=== PATIENT | female | born 1940 | race Caucasian/White ===

== ENCOUNTER 2021-07-28 20:50 | Emergency (ER) | payer MEDICARE, MEDICAID, SELFPAY ==
--- NOTE | ~2021-07-28 | CT_ITS ---
EXAMINATION: CT CERVICAL SPINE WITHOUT CONTRAST CLINICAL INFORMATION: Fall. Pain. COMPARISON: None TECHNIQUE: Contiguous axial CT images of the cervical spine were obtained without contrast. Sagittal and coronal reformats were provided and reviewed. This CT examination was performed using dose optimization techniques as appropriate, variously including the following: *Automated exposure control. *Adjustment of mA and/or kV according to patient size (this includes techniques or standardized protocols for targeted exams where dose is matched to indication/reason for exam; i.e. extremities or head). *Use of iterative reconstruction technique. DLP: 1308 mGy-cm FINDINGS: The cervical lordosis is maintained. No acute fracture or subluxation. 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 No loss of vertebral body height. Loss of intervertebral disc height with endplate osteophytes throughout the cervical spine, most prominent at C6-C7. Multilevel bilateral facet arthropathy. No concerning lytic or blastic osseous lesion. Unremarkable prevertebral soft tissues. The thyroid is grossly unremarkable. The visualized lung apices are clear. Mild multilevel bilateral neural foraminal stenosis. CT/CT cervical spine wo con IMPRESSION: 1. No acute fracture or subluxation. 2. 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 3. Multilevel degenerative disc disease and bilateral facet arthropathy with mild multilevel bilateral neural foraminal stenosis. Fleischner guidelines were followed.
--- NOTE | ~2021-07-28 | CT_ITS ---
EXAMINATION: CT HEAD WITHOUT CONTRAST CT MAXILLOFACIAL WITHOUT CONTRAST CLINICAL INFORMATION: Fall. Pain. Left maxillary contusion. COMPARISON: None TECHNIQUE: Contiguous axial imaging was performed from the skull base to vertex without intravenous administration of contrast. Contiguous axial CT images of the maxillofacial bones were obtained without contrast. Sagittal and coronal reformats were provided and reviewed. This CT examination was performed using dose optimization techniques as appropriate, variously including the following: *Automated exposure control. *Adjustment of mA and/or kV according to patient size (this includes techniques or standardized protocols for targeted exams where dose is matched to indication/reason for exam; i.e. extremities or head). *Use of iterative reconstruction technique. DLP: 1380 mGy-cm FINDINGS: HEAD: There is no evidence of acute intracranial hemorrhage or territorial infarction. No abnormal mass effect or midline shift is seen. Sgma-tx-bqene matter differentiation is well preserved. No extra-axial fluid collections are identified. The ventricles are normal in size. There is no abnormal attenuation within the brain parenchyma. Soft tissue swelling and subcutaneous hematoma overlying the left maxilla and measuring up to 3.6 cm. No adjacent fracture. The mastoid air cells and visualized portions of the paranasal sinuses are well aerated. MAXILLOFACIAL: Soft tissue swelling overlying the left maxilla with a lobulated subcutaneous collection measuring up to 3.6 cm in ML dimension, likely representing a soft tissue hematoma. There is no acute maxillofacial fracture. The pterygoid plates are intact. The zygomatic arches are intact. The lamina papyracea are intact. The orbital rims are intact. The paranasal sinuses are well-aerated. No air-fluid levels are seen. There is no significant deviation of the nasal septum. The ostiomeatal complexes are clear. The lamina papyracea are intact. The ethmoid roofs are symmetric. The carotid canals are normally covered by bone. There is no maxillary periapical disease. The mastoid air cells and visualized middle ear cavities are well-aerated. The orbits are normal. The TMJs are unremarkable. The imaged portions of the brain demonstrate no acute abnormality. CT/CT facial bones wo con IMPRESSION: HEAD: No acute intracranial hemorrhage or mass effect. MAXILLOFACIAL: Soft tissue hematoma overlying the left maxilla without acute fracture.
[2021-07-28 20:55] VITALS: BP 181/81; PULSE 90; RESP 17; TEMP 36.6; O2SAT 98; BMI 22.8
[2021-07-28 21:30] LABS: MANUAL DIFF FLAG NO
[2021-07-28 21:31] LABS: Basophils Percent Auto 0.6 % (0-2); Eosinophils Absolute Auto 0.1 X10*3/uL (0.0-0.4); Eosinophils Percent Auto 1.7 % (0-4); Hematocrit 35.1 % (37.0-47.0); Hemoglobin 11.3 g/dl (12.0-16.0); Imm Gran Abs Auto 0.04 X10*3/uL (0.00-0.03); Imm Gran Pct Auto 0.6 % (0.0-0.4); Lymphocytes Absolute Auto 1.3 X10*3/uL (1.2-4.9); Mean Corpuscular HGB Conc 32.2 g/dl (31.0-35.0); Mean Corpuscular Hemoglobin 28.9 pg (27.0-33.0); Mean Corpuscular Volume 89.8 fL (80.0-98.0); Mean Platelet Volume 8.3 fL (9.4-12.3); Monocytes Absolute Auto 0.7 X10*3/uL (0.1-1.2); Monocytes Percent Auto 10.6 % (2-11); Neutrophils Absolute Auto 4.8 x10*3/uL (2.0-8.3); Neutrophils Percent Auto 68.5 % (45-73); Platelet Count 259 X10*3/uL (160-400); Red Blood Count 3.91 X10*6/uL (4.20-5.50); Red Cell Distribution Width 13.9 % (11.0-16.0)
[2021-07-28 21:37] LABS: INTERNATIONAL NORM RATIO 1.1 (0.9-1.1); Prothrombin Time 12.5 SEC (9.9-13.0)
[2021-07-28 21:48] LABS: Alanine Aminotransferase 21 U/L (0-31); Albumin Level 3.6 g/dL (3.5-5.0); Alkaline Phosphatase 93 U/L (39-117); Anion Gap 16 (12-20); Aspartate Amino Transferase 18 U/L (5-31); Bilirubin Total 0.6 mg/dL (0.0-1.0); Blood Urea Nitrogen 18 mg/dL (9-16); Calcium 8.8 mg/dL (8.4-10.2); Carbon Dioxide 20 mmol/L (22-29); Chloride 105 mmol/L (96-108); Creatinine Clr Calc Pharmacy 53.2; Estimated Glomerular Filt Rate > 60; Glucose Random 256 mg/dL (60-115); Potassium 4.2 mmol/L (3.3-5.1); Sodium 137 mmol/L (135-145); Total Protein 6.5 g/dL (6.5-8.0)
--- NOTE | 2021-07-28 22:43 | ED.FALL ---
HPI - Fall General Chief Complaint: Fall Stated Complaint: fall Time Seen by Provider: 07/28/21 21:08 Source: patient Mode of arrival: EMS History of Present Illness HPI Narrative: This is an 81-year-old female who presents via EMS after a fall out of bed it day broken [facility]. Patient states she does not know how it happened but feels she may have mis- calculated the edge of the bed and denies any attempt to get out of bed at the time that she fell. She denies loss of consciousness, or the use of blood thinners. She states that she was in her usual state of health prior to this happening and denies any recent fever, chills, shortness of breath, chest pain/palpitations and denies any change in her appetite or bowel habits. Patient reports the only pain she is experiencing right now is to her left cheek. Related Data Allergies Allergy/AdvReac Type Severity Reaction Status Date / Time meperidine [From Demerol] Allergy Unknown Verified 07/28/21 21:01 Review of Systems Review of Systems: Pertinent positives and negatives as stated in HPI 10 point review of systems is otherwise negative. [facility] Past Medical History Source: nursing notes reviewed Medical History Alzheimer disease COVID-19 Depressed Diabetes High cholesterol HTN (hypertension) Vascular dementia Social History Social History Advance Directives: No Advance Directives Information Provided: No Physical Exam Vital Signs: Vital Signs: Last Vital Signs Temp 98 F 07/28/21 20:55 Pulse 90 07/28/21 20:55 Resp 17 07/28/21 20:55 BP 181/81 H 07/28/21 20:55 Pulse Ox 98 07/28/21 20:55 BMI result Body Mass Index 22.8 VITAL SIGNS: Reviewed. GENERAL: Elderly, frail, in no acute distress. HEAD: Normocephalic/contusion and swelling noted to left maxilla EYES: PERRLA, EOMI EARS: Ext canals without abnormality, TMs non-bulging and non-erythematous NOSE: Nares patent bilateral OROPHARYNX: no oral lesions noted, posterior pharynx clear NECK: C-collar in place, nose midline cervical spine tenderness on palpation, no adenopathy LUNGS: Normal breath sounds. No adventitious sounds or accessory muscle use. SpO2<98>; CHEST WALL: No deformity, pain on palpation, crepitus CARDIOVASCULAR: Regular rate and rhythm without noted murmurs ABDOMEN: Soft, non-tender, non-distended with bowel sounds. PELVIS: Stable, nontender MUSCULOSKELETAL: No tenderness, deformities, or effusions noted on gross inspection. EXTREMITIES: No cyanosis, clubbing or edema, full range of motion at shoulders/elbow/wrist/hip/knee/ankle SKIN: Inspection of the skin reveals no rashes NEUROLOGIC: Alert and oriented x 4. Strength and sensation to light touch were grossly intact x 4. Course Course Course Narrative: 81-year-old female with history and clinical presentation consistent with mechanical fall. Review of all investigations otherwise negative for acute findings other than hematoma over left cheek. All results discussed with patient bedside she is otherwise discharged home in stable condition MDM - Fall Lab Data Result diagrams: 07/28/21 21:27 07/28/21 21:27 Labs: Lab Results 07/28/21 07/28/21 07/28/21 Range/Units 21:27 21:27 21:27 WBC 7.0 (4.8-10.8) X10*3/uL RBC 3.91 L (4.20-5.50) X10*6/uL Hgb 11.3 L (12.0-16.0) g/dl Hct 35.1 L (37.0-47.0) % MCV 89.8 (80.0-98.0) fL MCH 28.9 (27.0-33.0) pg MCHC 32.2 (31.0-35.0) g/dl RDW 13.9 (11.0-16.0) % Plt Count 259 (160-400) X10*3/uL MPV 8.3 L (9.4-12.3) fL Immature Gran % (Auto) 0.6 H (0.0-0.4) % Neut % (Auto) 68.5 (45-73) % Lymph % (Auto) 18.0 L (20-40) % [place] % (Auto) 10.6 (2-11) % Eos % (Auto) 1.7 (0-4) % Baso % (Auto) 0.6 (0-2) % Lymph # (Auto) 1.3 (1.2-4.9) X10*3/uL [place] # (Auto) 0.7 (0.1-1.2) X10*3/uL Eos # (Auto) 0.1 (0.0-0.4) X10*3/uL Baso # (Auto) 0.0 (0.0-0.2) X10*3/uL Abs Immat Gran (auto) 0.04 H (0.00-0.03) X10*3/uL Absolute Neuts (auto) 4.8 (2.0-8.3) x10*3/uL Absolute Nucleated RBC 0.000 (0.0-0.012) X10*3/uL Nucleated RBC % (auto) 0.0 (0.0-0.2) /100WBC PT 12.5 (9.9-13.0) SEC INR 1.1 (0.9-1.1) Sodium 137 (135-145) mmol/L Potassium 4.2 (3.3-5.1) mmol/L Chloride 105 (96-108) mmol/L Carbon Dioxide 20 L (22-29) mmol/L Anion Gap 16 (12-20) BUN 18 H (9-16) mg/dL Creatinine 0.82 (0.5-1.4) mg/dL Estim Creat Clear Calc 53.2 Estimated GFR > 60 Random Glucose 256 H (60-115) mg/dL Calcium 8.8 (8.4-10.2) mg/dL Total Bilirubin 0.6 (0.0-1.0) mg/dL AST 18 (5-31) U/L ALT 21 (0-31) U/L Alkaline Phosphatase 93 (39-117) U/L Total Protein 6.5 (6.5-8.0) g/dL Albumin 3.6 (3.5-5.0) g/dL Discharge Plan Discharge Clinical Impression: Fall, Traumatic hematoma of cheek Patient Disposition: er [facility] Instructions: Fall Prevention for Older Adults (ED), Hematoma (ED), Facial Contusion (ED) Additional Instructions: 1. Resume all home medications as prescribed. 2. Recommend [id number] Tylenol/ibuprofen as needed for pain control. Consider applying ice to unexposed skin for 5-10 minutes, 3 to 4 times a day. 3. Please follow-up with your primary care provider in the morning for re-evaluation. Return to the ER for worsening symptoms.
[2021-07-28] MEDS: Ketorolac Tromethamine 15 MG/ML VIAL IM (22:47)
[2021-07-28] MEDS: Acetaminophen 325 MG TABLET 975 MG PO (23:35)
[2021-07-29] VITALS: BP 108/48; PULSE 67; RESP 16; TEMP 36.6; O2SAT 97
[2021-07-29 02:00] VITALS: BP 112/50; PULSE 59; RESP 16; TEMP 36.5; O2SAT 97
--- NOTE | 2021-07-29 04:27 | PC.NURSE ---
Pt was reposition at for comfort. report called to facility. Discharge instruction given to EMS at transport.
== END 2021-07-29 04:30 | disposition skilled nursing facility (03) ==
PROVIDERS: Emergency Provider Student in an Organized Health Care Education/Training Program
DX: S00.83XA Contusion of other part of head, initial encounter (principal); M54.2 Cervicalgia; I10 Essential (primary) hypertension; E11.9 Type 2 diabetes mellitus without complications; G30.9 Alzheimer's disease, unspecified; F02.80 Dementia in other diseases classified elsewhere, unspecified severity, without behavioral disturbance, psychotic disturbance, mood disturbance, and anxiety; W06.XXXA Fall from bed, initial encounter; Y93.9 Activity, unspecified; Y92.199 Unspecified place in other specified residential institution as the place of occurrence of the external cause; Y99.9 Unspecified external cause status
CPT/HCPCS: 36415; 70450; 70486; 72125; 80053; 85025; 85610; 96372; 99284; J1885

== ENCOUNTER 2021-10-11 14:15 | Emergency (ER) | payer MEDICARE, MEDICAID, SELFPAY ==
--- NOTE | ~2021-10-11 | XR_ITS ---
EXAMINATION: XR CHEST CLINICAL INFORMATION: Chest pain COMPARISON: None TECHNIQUE: Frontal portable view of the chest was obtained. 1544 hours FINDINGS: Lungs are clear. No pulmonary vascular congestion. There is no pleural effusion. The heart size is normal. The cardiac and mediastinal contours are normal. There are calcifications of the thoracic aorta. There are multilevel degenerative changes of dorsal spine. Status post right humeral head replacement. 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 XR/XR chest 1V IMPRESSION: No acute abnormality of chest.
--- NOTE | ~2021-10-11 | CT_ITS ---
EXAMINATION: CT ANGIOGRAM OF THE CHEST WITH AND WITHOUT CONTRAST (CT PULMONARY ANGIOGRAM FOR PE) CLINICAL INFORMATION: Reason for Exam r/o PE COMPARISON: None TECHNIQUE: Prior to contrast administration, noncontrast localization images were obtained. Subsequently, multidetector volumetric imaging was performed from the thoracic inlet to below the diaphragms following the administration of 75 mL Omnipaque 350 intravenous contrast. No contrast reaction reported Sagittal, coronal, and MIP oblique sagittal reformatted images were obtained on the CT workstation, uploaded to PACS, and reviewed. This CT examination was performed using dose optimization techniques as appropriate, variously including the following: *Automated exposure control *Adjustment of mA and/or kV according to patient size (this includes techniques or standardized protocols for targeted exams where dose is matched to indication/reason for exam; i.e. extremities or head) *Use of iterative reconstruction technique Total exam dose-length product 345 mGy-cm FINDINGS: QUALITY OF STUDY/CONTRAST BOLUS: Satisfactory. PULMONARY ARTERIES: Small filling defects within distal lingular segmental pulmonary arterial branches and possible nonocclusive small filling defect within the distal posterior segmental branch in the right upper lobe suspicious for small pulmonary emboli. No larger or more central pulmonary emboli. Normal caliber central pulmonary trunk. THORACIC AORTA: Normal caliber thoracic aorta. Mild vascular calcifications. LUNG: No airspace consolidation or suspicious appearing pulmonary nodule. Minimal dependent right basilar atelectasis. Mild linear scarring or subsegmental atelectasis in the right upper lobe. Central airways are clear. PLEURA: No pleural effusion or pneumothorax. MEDIASTINUM: Normal heart size. No pericardial effusion. No mediastinal or hilar lymphadenopathy. Prominent LAD coronary artery vascular calcifications. Coarse calcifications of the aortic valve. No evidence of RV strain/septal bowing. CHEST WALL/AXILLA: No axillary or internal mammary lymphadenopathy. OSSEOUS STRUCTURES: No acute or suspicious osseous abnormality. Moderate to multilevel degenerative disc disease most prominently in the lower thoracic spine. Status post right shoulder arthroplasty. UPPER ABDOMEN: Small hiatal hernia. Remainder of the visualized upper abdominal viscera are grossly unremarkable. No reflux of contrast into the hepatic veins to suggest elevated right heart pressures. CT/CT angio chest PE protocol IMPRESSION: 1. Couple small filling defects within distal lingular segmental pulmonary arterial branches and small nonocclusive filling defect in the distal posterior segmental branch of the right upper lobe, suspicious for small pulmonary emboli. No larger or more central pulmonary emboli. 2. No evidence of RV strain. This critical result was discussed with Dr. Madrid at 6:02 PM on 10/11/2021 and it was ascertained that the content and urgency of the report was understood at the time of direct communication. VTE: positive
--- NOTE | 2021-10-11 14:30 | ECG_ITS ---
Test Reason : CHST PAIN Blood Pressure : / mmHG Vent. Rate : 063 BPM Atrial Rate : 063 BPM P-R Int : 278 ms QRS Dur : 094 ms QT Int : 428 ms P-R-T Axes : 090 -62 032 degrees QTc Int : 437 ms Sinus rhythm with 1st degree A-V block Left axis deviation Possible Lateral infarct , age undetermined Abnormal ECG No previous ECGs available Referred By: Geovany Trevino Electronically Signed By:CHELO MAN MD
--- NOTE | 2021-10-11 14:32 | ED_ITS ---
HPI - Chest Pain General Chief Complaint: Dyspnea Stated Complaint: CHEST PAIN FOR 1 HOUR FROM SNF Time Seen by Provider: 10/11/21 14:26 Source: EMS Mode of arrival: EMS Limitations: other (dementia) History of Present Illness HPI narrative: 81 yo female with hx of dementia,presented to the ED via ambulace c/o chest pain since this AM,she lives in [place],She is disoriented to time,Pain is radiated to the back,denies SOB complaint: chest pain Onset (ago): hour(s) (6) Timing of current episode: constant Prior episodes: No Onset: during rest Pain location: substernal Pain radiation: back Severity: mild Quality: aching Relieving factors: nothing Exacerbating factors: nothing Risk Factors Coronary artery disease risk factors: diabetes Related Data Previous Rx's Medication Instructions Recorded apixaban 5 mg (74 tabs) tablets in 5 mg PO BID #74 ea 10/11/21 a dose pack (Eliquis DVT-PE Treat 30D Start) Allergies Allergy/AdvReac Type Severity Reaction Status Date / Time meperidine [From Demerol] Allergy Unknown Verified 07/28/21 21:01 Review of Systems Review of Systems: Yes all other systems are reviewed and are negative Constitutional: Constitutional: Reports no additional constitutional complaints Eyes: Eyes: Reports no additional eye complaints Cardiovascular: Cardiovascular: Reports no additional cardiovascular complaints Allergic/Immunologic: Allergic/Immunologic: Reports no additional allergic/immunologic complaints PMFSH Past Medical History Medical History Alzheimer disease COVID-19 Depressed Diabetes High cholesterol HTN (hypertension) Vascular dementia Social History Social History Patient Tobacco Use Status: Never used Tobacco Use of substances other than those prescribed or required for medical reasons: No Advance Directives: Yes Advance Directives on File: Yes Advance Directives Date on File: 07/30/21 Physical Exam Vital Signs: Vital Signs: Last Vital Signs Temp 98 F 10/11/21 14:44 Pulse 66 10/11/21 18:08 Resp 14 10/11/21 18:08 BP 152/54 H 10/11/21 18:08 Pulse Ox 99 10/11/21 18:08 O2 Del Method 10/11/21 18:08 BMI result Body Mass Index 26.3 Const: General: cooperative Nutritional Appearance: well nourished Orientation/consciousness: oriented to place and No oriented to time HEENT: Head: Yes normal to inspection Face and sinus: Yes normal facial exam Neck: Neck: Yes full ROM and Yes no lymphadenopathy Chest: Chest palpation & inspection: normal inspection of the chest Resp: Auscultation: clear to auscultation bilaterally Cardio: Jugular venous distension: no JVD Rate: regular rate Rhythm: regular rhythm GI: Inspection: Yes normal to inspection Palpation (GI): Soft to palpation, not firm and nontender : General: Yes no CVA tenderness Back/Spine/Pelvis: Back: no CVA tenderness Skin: General skin exam: elasticity normal Neuro: General: oriented to place and No oriented to time Course Reevaluation(s) Reevaluation #1: bed side cardiac US done GERALDO/Apycal/Subxiphoid view good wall motion/no pericardial effusion Time: 19:08 Reevaluation #2: page to Dr Terrance Pena attending at [facility] Reevaluation #3: Patient has a segmental pulmonary emboli however she is oxygenating very well, she is not tachypneic,, troponin is negative, I feel is safe to discharge her on Eliquis, I discussed the case with the covering primary care physician for Dr Pena , AMANDA Kothari he agrees with the plan without this point will discharge the patient to the nursing facility.Pt has low risk PESI score Additional Reevaluation(s): 10:30 PM still waiting for the ambulance to transport the pt to [place],no ambulance available I will let the incoming Physician Dr Cherry aware of the pt MDM - Chest Pain Lab Data Result diagrams: 10/11/21 14:58 10/11/21 14:58 Labs: Lab Results 10/11/21 10/11/21 10/11/21 Range/Units 14:58 14:58 14:58 WBC 9.1 (4.8-10.8) X10*3/uL RBC 4.12 L (4.20-5.50) X10*6/uL Hgb 12.2 (12.0-16.0) g/dl Hct 36.7 L (37.0-47.0) % MCV 89.1 (80.0-98.0) fL MCH 29.6 (27.0-33.0) pg MCHC 33.2 (31.0-35.0) g/dl RDW 13.3 (11.0-16.0) % Plt Count 266 (160-400) X10*3/uL MPV 9.0 L (9.4-12.3) fL Immature Gran % (Auto) 0.4 (0.0-0.4) % Neut % (Auto) 68.9 (45-73) % Lymph % (Auto) 19.6 L (20-40) % [place] % (Auto) 8.8 (2-11) % Eos % (Auto) 1.5 (0-4) % Baso % (Auto) 0.8 (0-2) % Lymph # (Auto) 1.8 (1.2-4.9) X10*3/uL [place] # (Auto) 0.8 (0.1-1.2) X10*3/uL Eos # (Auto) 0.1 (0.0-0.4) X10*3/uL Baso # (Auto) 0.1 (0.0-0.2) X10*3/uL Abs Immat Gran (auto) 0.04 H (0.00-0.03) X10*3/uL Absolute Neuts (auto) 6.2 (2.0-8.3) x10*3/uL Absolute Nucleated RBC 0.000 (0.0-0.012) X10*3/uL Nucleated RBC % (auto) 0.0 (0.0-0.2) /100WBC PT 12.1 (10.0-13.1) SEC INR 1.1 (0.9-1.1) D-Dimer High Sensitivty 383 NG/ML Sodium 136 (135-145) mmol/L Potassium 4.1 (3.3-5.1) mmol/L Chloride 103 (96-108) mmol/L Carbon Dioxide 21 L (22-29) mmol/L Anion Gap 16 (12-20) BUN 16 (9-16) mg/dL Creatinine 0.88 (0.5-1.4) mg/dL Estim Creat Clear Calc 45.2 Estimated GFR > 60 Random Glucose 181 H (60-115) mg/dL Calcium 9.0 (8.4-10.2) mg/dL Total Bilirubin 0.4 (0.0-1.0) mg/dL AST 16 (5-31) U/L ALT 15 (0-31) U/L Alkaline Phosphatase 80 (39-117) U/L Troponin I High Sens (<3.5-17.0) ng/L Total Protein 6.3 L (6.5-8.0) g/dL Albumin 3.9 (3.5-5.0) g/dL 10/11/21 10/11/21 Range/Units 14:58 17:10 WBC (4.8-10.8) X10*3/uL RBC (4.20-5.50) X10*6/uL Hgb (12.0-16.0) g/dl Hct (37.0-47.0) % MCV (80.0-98.0) fL MCH (27.0-33.0) pg MCHC (31.0-35.0) g/dl RDW (11.0-16.0) % Plt Count (160-400) X10*3/uL MPV (9.4-12.3) fL Immature Gran % (Auto) (0.0-0.4) % Neut % (Auto) (45-73) % Lymph % (Auto) (20-40) % [place] % (Auto) (2-11) % Eos % (Auto) (0-4) % Baso % (Auto) (0-2) % Lymph # (Auto) (1.2-4.9) X10*3/uL [place] # (Auto) (0.1-1.2) X10*3/uL Eos # (Auto) (0.0-0.4) X10*3/uL Baso # (Auto) (0.0-0.2) X10*3/uL Abs Immat Gran (auto) (0.00-0.03) X10*3/uL Absolute Neuts (auto) (2.0-8.3) x10*3/uL Absolute Nucleated RBC (0.0-0.012) X10*3/uL Nucleated RBC % (auto) (0.0-0.2) /100WBC PT (10.0-13.1) SEC INR (0.9-1.1) D-Dimer High Sensitivty NG/ML Sodium (135-145) mmol/L Potassium (3.3-5.1) mmol/L Chloride (96-108) mmol/L Carbon Dioxide (22-29) mmol/L Anion Gap (12-20) BUN (9-16) mg/dL Creatinine (0.5-1.4) mg/dL Estim Creat Clear Calc Estimated GFR Random Glucose (60-115) mg/dL Calcium (8.4-10.2) mg/dL Total Bilirubin (0.0-1.0) mg/dL AST (5-31) U/L ALT (0-31) U/L Alkaline Phosphatase (39-117) U/L Troponin I High Sens < 3.5 < 3.5 (<3.5-17.0) ng/L Total Protein (6.5-8.0) g/dL Albumin (3.5-5.0) g/dL Imaging Data CT scan - chest: Radiologist's impression: MEDIASTINUM: Normal heart size. No pericardial effusion. No mediastinal or hilar lymphadenopathy. Prominent LAD coronary artery vascular calcifications. Coarse calcifications of the aortic valve. No evidence of RV strain/septal bowing. CHEST WALL/AXILLA: No axillary or internal mammary lymphadenopathy. OSSEOUS STRUCTURES: No acute or suspicious osseous abnormality. Moderate to multilevel degenerative disc disease most prominently in the lower thoracic spine. Status post right shoulder arthroplasty. UPPER ABDOMEN: Small hiatal hernia. Remainder of the visualized upper abdominal viscera are grossly unremarkable.? No reflux of contrast into the hepatic veins to suggest elevated right heart pressures. CT/CT angio chest PE protocol IMPRESSION: 1.? Couple small filling defects within distal lingular segmental pulmonary arterial branches and small nonocclusive filling defect in the distal posterior segmental branch of the right upper lobe, suspicious for small pulmonary emboli. No larger or more central pulmonary emboli. 2.? No evidence of RV strain. ? This critical result was discussed with Dr. Madrid at 6:02 PM on 10/11/2021 and it was ascertained that the content and urgency of the report was understood at the time of direct communication. ? VTE: positive Dictated By: Thien Peña Signed By: <Electronically signed by Thien? Casey in OV> 10/11/21 1803 DD/ 1715 TD/TT:? Projection Printer: ECG Data ECG #1: Pacemaker model: NSR [address]-t changes Discharge Plan Discharge Clinical Impression: Pulmonary embolism without acute cor pulmonale Patient Disposition: Xfer SNF Instructions: Blood Thinners (ED) Additional Instructions: The CT scan was positive for pulmonary emboli however was only small vessel of the lungs , we going to start you on Eliquis you need to take a 10 mg twice a day for the 1st week then 5 mg twice a day Prescriptions: New Eliquis DVT-PE Treat 30D Start 5 mg (74 tabs) tablets,dose pack 5 mg PO BID Qty: 74 0RF
[2021-10-11 14:40] VITALS: BP 127/60; PULSE 65; O2SAT 100
[2021-10-11 14:44] VITALS: BP 142/65; PULSE 63; RESP 16; TEMP 36.6; O2SAT 100; BMI 26.3
[2021-10-11 15:10] VITALS: PULSE 64
[2021-10-11 15:11] LABS: MANUAL DIFF FLAG NO
[2021-10-11 15:13] LABS: Basophils Absolute Auto 0.1 X10*3/uL (0.0-0.2); Basophils Percent Auto 0.8 % (0-2); Eosinophils Absolute Auto 0.1 X10*3/uL (0.0-0.4); Eosinophils Percent Auto 1.5 % (0-4); Hematocrit 36.7 % (37.0-47.0); Hemoglobin 12.2 g/dl (12.0-16.0); Imm Gran Abs Auto 0.04 X10*3/uL (0.00-0.03); Imm Gran Pct Auto 0.4 % (0.0-0.4); Lymphocytes Absolute Auto 1.8 X10*3/uL (1.2-4.9); Lymphocytes Percent Auto 19.6 % (20-40); Mean Corpuscular HGB Conc 33.2 g/dl (31.0-35.0); Mean Corpuscular Hemoglobin 29.6 pg (27.0-33.0); Mean Corpuscular Volume 89.1 fL (80.0-98.0); Monocytes Absolute Auto 0.8 X10*3/uL (0.1-1.2); Monocytes Percent Auto 8.8 % (2-11); Neutrophils Absolute Auto 6.2 x10*3/uL (2.0-8.3); Neutrophils Percent Auto 68.9 % (45-73); Platelet Count 266 X10*3/uL (160-400); Red Blood Count 4.12 X10*6/uL (4.20-5.50); Red Cell Distribution Width 13.3 % (11.0-16.0); White Blood Count 9.1 X10*3/uL (4.8-10.8)
[2021-10-11 15:18] LABS: INTERNATIONAL NORM RATIO 1.1 (0.9-1.1); Prothrombin Time 12.1 SEC (10.0-13.1)
[2021-10-11 15:20] LABS: D Dimer High Sensitivity 383 NG/ML
[2021-10-11 15:34] LABS: Alanine Aminotransferase 15 U/L (0-31); Albumin Level 3.9 g/dL (3.5-5.0); Alkaline Phosphatase 80 U/L (39-117); Anion Gap 16 (12-20); Aspartate Amino Transferase 16 U/L (5-31); Bilirubin Total 0.4 mg/dL (0.0-1.0); Blood Urea Nitrogen 16 mg/dL (9-16); Carbon Dioxide 21 mmol/L (22-29); Chloride 103 mmol/L (96-108); Creatinine Clr Calc Pharmacy 45.2; Estimated Glomerular Filt Rate > 60; Glucose Random 181 mg/dL (60-115); Potassium 4.1 mmol/L (3.3-5.1); Sodium 136 mmol/L (135-145); Total Protein 6.3 g/dL (6.5-8.0)
[2021-10-11 15:40] LABS: Troponin-I High Sensitivity < 3.5 ng/L (<3.5-17.0)
[2021-10-11] MEDS: Acetaminophen 325 MG TABLET 650 MG PO (15:57)
--- NOTE | 2021-10-11 16:49 | PC.NURSE ---
IV tubing changed for CT scan, CT scan is aware.
[2021-10-11] MEDS: iohexoL 350 MG/ML 100 ML INFUS..BTL IV (17:09)
[2021-10-11 17:34] LABS: Troponin-I High Sensitivity < 3.5 ng/L (<3.5-17.0)
[2021-10-11 18:08] VITALS: BP 152/54; PULSE 66; RESP 14; O2SAT 99
--- NOTE | 2021-10-11 19:51 | PC.NURSE ---
This [place] called [facility] @1950 spoke to [place] regarding transport of patient going back to [facility]. [facility] can not bring patient back to [facility] due to short staff and no ambulances. [facility] will try and pass it on to another ambulance company
[2021-10-11] MEDS: Apixaban 5 MG TABLET 10 MG PO (20:03)
--- NOTE | 2021-10-12 01:07 | PC.NURSE ---
Pt ambulatory with steady gait, using walker, and standby assist. Pt alert, oriented to person but not to place or situation. Pt calm and cooperative, awaiting transport back to facility.
[2021-10-12 01:11] VITALS: BP 133/61; PULSE 64; RESP 18; TEMP 36.5; O2SAT 97
[2021-10-12 04:45] VITALS: BP 102/49; PULSE 63; RESP 18; O2SAT 99
== END 2021-10-12 09:09 | disposition skilled nursing facility (03) ==
PROVIDERS: Emergency Provider Emergency Medicine
DX: I26.99 Other pulmonary embolism without acute cor pulmonale (principal); E11.9 Type 2 diabetes mellitus without complications; I10 Essential (primary) hypertension; E78.5 Hyperlipidemia, unspecified; G30.9 Alzheimer's disease, unspecified; F02.80 Dementia in other diseases classified elsewhere, unspecified severity, without behavioral disturbance, psychotic disturbance, mood disturbance, and anxiety
CPT/HCPCS: 36415; 71045; 71275; 80053; 84484; 85025; 85379; 85610; 93005; 99284; 99285; Q9967

== ENCOUNTER 2021-10-24 14:58 | Emergency (ER) | payer MEDICARE, MEDICAID, SELFPAY ==
--- NOTE | ~2021-10-24 | XR_ITS ---
EXAMINATION: XR CHEST CLINICAL INFORMATION: Chest pain COMPARISON: Chest radiograph from 10/11/2021 TECHNIQUE: Frontal view of the chest was obtained. FINDINGS: Patient is rotated. Stable calcification in the right lung apex. Bibasilar atelectasis versus scarring. No pneumothorax. Trachea is midline. Cardiomediastinal silhouette is stable. Aorta demonstrates tortuosity. No large pleural effusion. Degenerative changes of the thoracolumbar spine. Status post right shoulder arthroplasty. Degenerative changes of the left glenohumeral joint. Soft tissues are unremarkable. XR/XR chest 1V IMPRESSION: Bibasilar atelectasis versus scarring.
[2021-10-24 15:21] VITALS: BP 134/72; BP 143/33; PULSE 64; PULSE 82; RESP 16; TEMP 37.1; O2SAT 97; O2SAT 98; BMI 26.5
--- NOTE | 2021-10-24 15:36 | ECG_ITS ---
Test Reason : chest pain Blood Pressure : / mmHG Vent. Rate : 057 BPM Atrial Rate : 064 BPM P-R Int : 000 ms QRS Dur : 088 ms QT Int : 416 ms P-R-T Axes : 023 -53 042 degrees QTc Int : 404 ms Sinus rhythm with 2nd degree A-V block ([place] I) Left axis deviation Abnormal ECG When compared with ECG of 11-OCT-2021 15:06, Sinus rhythm is now with 2nd degree A-V block ([place] I) Referred By: Mariel Lucas Electronically Signed By:MARIMAR WILLS
--- NOTE | 2021-10-24 15:44 | ED.CHESTPAIN ---
HPI - Chest Pain General Chief Complaint: Chest Pain Stated Complaint: tight chest pain Time Seen by Provider: 10/24/21 15:19 Source: patient and EMS Mode of arrival: EMS History of Present Illness HPI narrative: 81-year-old female with a past medical history of Alzheimer's, depression, diabetes, HLD, HTN, recent diagnosis of PE on Eliquis, brought in by ambulance from [facility] c/o substernal chest pressure since this morning. denies fever, chills, SOB, abdominal pain, nausea /vomiting, numbness / tingling, pedal edema complaint: chest pain Onset (ago): hour(s) Related Data Previous Rx's Medication Instructions Recorded apixaban 5 mg (74 tabs) tablets in 5 mg PO BID #74 ea 10/11/21 a dose pack (Eliquis DVT-PE Treat 30D Start) cefuroxime axetil 250 mg tablet 250 mg PO BID 7 days #14 tabs 10/24/21 Allergies Allergy/AdvReac Type Severity Reaction Status Date / Time meperidine [From Demerol] Allergy Unknown Verified 07/28/21 21:01 Review of Systems Review of Systems: Constitutional: No Fever, No Chills, No Fatigue, No Malaise ENT/Mouth: No Hearing loss, No Ear Pain, No Nasal Congestion, No sore throat, No Rhinorrhea, No Swallowing Difficulty Eyes: No Eye Pain, No Swelling, No Redness, No Vision Changes Cardiovascular: + Chest Pain, No SOB, No Dyspnea on Exertion, No Orthopnea, No Edema, No Palpitations Respiratory: No Cough, No Sputum, No Dyspnea Gastrointestinal: No Nausea, No Vomiting, No Diarrhea, No Constipation, No Abdominal pain Genitourinary: No Dysuria, No Urinary Frequency, No Hematuria, No Urinary Incontinence/retention, No Urgency, No Flank Pain Musculoskeletal: No joint pain, No Myalgias, No Joint Swelling Skin: No Skin Lesions, No rash Neuro: No Weakness, No Dizziness, No Headache Yes all other systems are reviewed and are negative Constitutional: Constitutional: Reports as per [facility] Past Medical History Attestation statement: The following information was validated with the patient. Medical History Alzheimer disease COVID-19 Depressed Diabetes High cholesterol HTN (hypertension) Vascular dementia Social History Social History Patient Tobacco Use Status: Never used Tobacco Advance Directives: Yes Advance Directives on File: Yes Advance Directives Date on File: 07/30/21 Physical Exam Vital Signs: Vital Signs: Last Vital Signs Temp 98.8 F 10/24/21 15:21 Pulse 64 10/24/21 15:21 Resp 16 10/24/21 15:21 BP 143/33 H 10/24/21 15:21 Pulse Ox 98 10/24/21 15:21 O2 Del Method 10/24/21 15:21 BMI result Body Mass Index 26.5 Const: General: cooperative, comfortable, no acute distress, alert and awake Orientation/consciousness: oriented to person and oriented to place Limitations: other limitations ( baseline dementia) HEENT: Head: Yes normal to inspection and Yes atraumatic Ears: hearing grossly normal bilaterally General nose exam: Normal external nose present Face and sinus: Yes normal facial exam Eyes: General: appearance normal, both eyes and all related structures EOM: EOMs intact bilaterally Neck: Neck: Yes normal visual inspection and Yes no meningeal signs Resp: Effort & Inspection: normal respiratory effort and no respiratory distress Auscultation: clear to auscultation bilaterally, no crackles, no rales, no rhonchi and no wheezes Cardio: Rate: regular rate Heart sounds: S1 normal heart sound present and S2 normal heart sound present GI: Inspection: Yes normal to inspection Palpation (GI): Soft to palpation, nontender, no guarding and not rigid : General: Yes no CVA tenderness Back/Spine/Pelvis: Back: no CVA tenderness Skin: Rashes: no rashes Wounds: no wounds Neuro: General: oriented to person, oriented to place, tone normal and no meningeal signs Gait exam (Neuro): Normal gait present Extrem: General: Yes normal to inspection, Yes no pedal edema and Yes no calf tenderness Course Course Course Narrative: -1738-- No leukocytosis. H&H stable. initial troponin negative > will obtain 3 hour repeat - mild UTI will give p.o. Ceftin -1917-- repeat troponin equivocal, mi unlikely. XR chest 1V IMPRESSION: Bibasilar atelectasis versus scarring. > Results discussed with patient. Is safe for discharge home back to [facility] MDM - Chest Pain MDM Narrative Medical decision making narrative: 81-year-old female with a past medical history of Alzheimer's, depression, diabetes, HLD, HTN, recent diagnosis of PE on Eliquis, brought in by ambulance from [facility] c/o substernal chest pressure since this morning. on exam vital signs stable, no tachypnea or tachycardia, satting 98% on RA in no respiratory distress, lungs CTA, no pedal edema /calf tenderness. Concern for ACS. lower suspicion for pneumonia, progression of PE or CHF plan: EKG, labs, CXR Differential Diagnosis Differential diagnosis: Likely stable angina, atypical chest pain, costochondritis and chest pain Medical Records Data Attestation: I reviewed the patient's medical records. Lab Data Attestation: I reviewed the patient's lab results. Result diagrams: 10/24/21 16:38 10/24/21 16:38 Labs: Lab Results 10/24/21 10/24/21 10/24/21 Range/Units 16:38 16:38 16:38 WBC 8.8 (4.8-10.8) X10*3/uL RBC 4.07 L (4.20-5.50) X10*6/uL Hgb 11.8 L (12.0-16.0) g/dl Hct 36.3 L (37.0-47.0) % MCV 89.2 (80.0-98.0) fL MCH 29.0 (27.0-33.0) pg MCHC 32.5 (31.0-35.0) g/dl RDW 13.4 (11.0-16.0) % Plt Count 263 (160-400) X10*3/uL MPV 8.8 L (9.4-12.3) fL Immature Gran % (Auto) 0.3 (0.0-0.4) % Neut % (Auto) 79.5 H (45-73) % Lymph % (Auto) 11.3 L (20-40) % [place] % (Auto) 7.5 (2-11) % Eos % (Auto) 0.9 (0-4) % Baso % (Auto) 0.5 (0-2) % Lymph # (Auto) 1.0 L (1.2-4.9) X10*3/uL [place] # (Auto) 0.7 (0.1-1.2) X10*3/uL Eos # (Auto) 0.1 (0.0-0.4) X10*3/uL Baso # (Auto) 0.0 (0.0-0.2) X10*3/uL Abs Immat Gran (auto) 0.03 (0.00-0.03) X10*3/uL Absolute Neuts (auto) 7.0 (2.0-8.3) x10*3/uL Absolute Nucleated RBC 0.000 (0.0-0.012) X10*3/uL Nucleated RBC % (auto) 0.0 (0.0-0.2) /100WBC PT (10.0-13.1) SEC INR (0.9-1.1) APTT (26.0-36.4) SEC Sodium 138 (135-145) mmol/L Potassium 4.5 (3.3-5.1) mmol/L Chloride 107 (96-108) mmol/L Carbon Dioxide 22 (22-29) mmol/L Anion Gap 14 (12-20) BUN 16 (9-16) mg/dL Creatinine 0.94 (0.5-1.4) mg/dL Estim Creat Clear Calc 45.8 Estimated GFR 57 Random Glucose 136 H (60-115) mg/dL Calcium 8.9 (8.4-10.2) mg/dL Magnesium 1.8 (1.6-2.6) mg/dL Total Bilirubin 0.4 (0.0-1.0) mg/dL Direct Bilirubin 0.2 (0.0-0.5) mg/dL AST 15 (5-31) U/L ALT 15 (0-31) U/L Alkaline Phosphatase 80 (39-117) U/L Troponin I High Sens < 3.5 (<3.5-17.0) ng/L B-Natriuretic Peptide (<100) pg/mL Total Protein 6.4 L (6.5-8.0) g/dL Albumin 3.9 (3.5-5.0) g/dL Urine Color Urine Appearance Urine pH (5.0-8.0) Ur Specific [place] (1.005-1.025) Urine Protein (NEG-TRACE) MG/DL Urine Glucose (UA) (NEG) MG/DL Urine Ketones (NEG) MG/DL Urine Blood (NEG) Urine Nitrite (NEG) Ur Leukocyte Esterase (NEG) Urine RBC (0) /HPF Urine WBC (0-4) /HPF Urine WBC Clumps Ur Squamous Epith Cells /LPF Urine Bacteria /LPF 10/24/21 10/24/21 10/24/21 Range/Units 16:38 16:38 17:04 WBC (4.8-10.8) X10*3/uL RBC (4.20-5.50) X10*6/uL Hgb (12.0-16.0) g/dl Hct (37.0-47.0) % MCV (80.0-98.0) fL MCH (27.0-33.0) pg MCHC (31.0-35.0) g/dl RDW (11.0-16.0) % Plt Count (160-400) X10*3/uL MPV (9.4-12.3) fL Immature Gran % (Auto) (0.0-0.4) % Neut % (Auto) (45-73) % Lymph % (Auto) (20-40) % [place] % (Auto) (2-11) % Eos % (Auto) (0-4) % Baso % (Auto) (0-2) % Lymph # (Auto) (1.2-4.9) X10*3/uL [place] # (Auto) (0.1-1.2) X10*3/uL Eos # (Auto) (0.0-0.4) X10*3/uL Baso # (Auto) (0.0-0.2) X10*3/uL Abs Immat Gran (auto) (0.00-0.03) X10*3/uL Absolute Neuts (auto) (2.0-8.3) x10*3/uL Absolute Nucleated RBC (0.0-0.012) X10*3/uL Nucleated RBC % (auto) (0.0-0.2) /100WBC PT 15.8 H (10.0-13.1) SEC INR 1.4 H (0.9-1.1) APTT 30.7 (26.0-36.4) SEC Sodium (135-145) mmol/L Potassium (3.3-5.1) mmol/L Chloride (96-108) mmol/L Carbon Dioxide (22-29) mmol/L Anion Gap (12-20) BUN (9-16) mg/dL Creatinine (0.5-1.4) mg/dL Estim Creat Clear Calc Estimated GFR Random Glucose (60-115) mg/dL Calcium (8.4-10.2) mg/dL Magnesium (1.6-2.6) mg/dL Total Bilirubin (0.0-1.0) mg/dL Direct Bilirubin (0.0-0.5) mg/dL AST (5-31) U/L ALT (0-31) U/L Alkaline Phosphatase (39-117) U/L Troponin I High Sens (<3.5-17.0) ng/L B-Natriuretic Peptide 137 H (<100) pg/mL Total Protein (6.5-8.0) g/dL Albumin (3.5-5.0) g/dL Urine Color YELLOW Urine Appearance CLEAR Urine pH 8.5 H (5.0-8.0) Ur Specific [place] 1.010 (1.005-1.025) Urine Protein NEG (NEG-TRACE) MG/DL Urine Glucose (UA) NEG (NEG) MG/DL Urine Ketones NEG (NEG) MG/DL Urine Blood TRACE (NEG) Urine Nitrite NEG (NEG) Ur Leukocyte Esterase TRACE H (NEG) Urine RBC 1-4 (0) /HPF Urine WBC 5-9 H (0-4) /HPF Urine WBC Clumps NOTED Ur Squamous Epith Cells NONE /LPF Urine Bacteria TRACE /LPF 10/24/21 Range/Units 17:42 WBC (4.8-10.8) X10*3/uL RBC (4.20-5.50) X10*6/uL Hgb (12.0-16.0) g/dl Hct (37.0-47.0) % MCV (80.0-98.0) fL MCH (27.0-33.0) pg MCHC (31.0-35.0) g/dl RDW (11.0-16.0) % Plt Count (160-400) X10*3/uL MPV (9.4-12.3) fL Immature Gran % (Auto) (0.0-0.4) % Neut % (Auto) (45-73) % Lymph % (Auto) (20-40) % [place] % (Auto) (2-11) % Eos % (Auto) (0-4) % Baso % (Auto) (0-2) % Lymph # (Auto) (1.2-4.9) X10*3/uL [place] # (Auto) (0.1-1.2) X10*3/uL Eos # (Auto) (0.0-0.4) X10*3/uL Baso # (Auto) (0.0-0.2) X10*3/uL Abs Immat Gran (auto) (0.00-0.03) X10*3/uL Absolute Neuts (auto) (2.0-8.3) x10*3/uL Absolute Nucleated RBC (0.0-0.012) X10*3/uL Nucleated RBC % (auto) (0.0-0.2) /100WBC PT (10.0-13.1) SEC INR (0.9-1.1) APTT (26.0-36.4) SEC Sodium (135-145) mmol/L Potassium (3.3-5.1) mmol/L Chloride (96-108) mmol/L Carbon Dioxide (22-29) mmol/L Anion Gap (12-20) BUN (9-16) mg/dL Creatinine (0.5-1.4) mg/dL Estim Creat Clear Calc Estimated GFR Random Glucose (60-115) mg/dL Calcium (8.4-10.2) mg/dL Magnesium (1.6-2.6) mg/dL Total Bilirubin (0.0-1.0) mg/dL Direct Bilirubin (0.0-0.5) mg/dL AST (5-31) U/L ALT (0-31) U/L Alkaline Phosphatase (39-117) U/L Troponin I High Sens < 3.5 (<3.5-17.0) ng/L B-Natriuretic Peptide (<100) pg/mL Total Protein (6.5-8.0) g/dL Albumin (3.5-5.0) g/dL Urine Color Urine Appearance Urine pH (5.0-8.0) Ur Specific [place] (1.005-1.025) Urine Protein (NEG-TRACE) MG/DL Urine Glucose (UA) (NEG) MG/DL Urine Ketones (NEG) MG/DL Urine Blood (NEG) Urine Nitrite (NEG) Ur Leukocyte Esterase (NEG) Urine RBC (0) /HPF Urine WBC (0-4) /HPF Urine WBC Clumps Ur Squamous Epith Cells /LPF Urine Bacteria /LPF Discharge Plan Discharge Clinical Impression: Chest pain, Acute UTI Patient Disposition: er [facility] Instructions: Urinary Tract Infection in Older Adults (ED) Additional Instructions: you have a urinary tract infection. Ceftin is antibiotic please take as prescribed your blood work was otherwise reassuring. Her chest x-ray does not show pneumonia. Continue home prescribed medications. If symptoms persist or worsen, if shortness of breath, or swelling in her legs return to the emergency department Prescriptions: New cefuroxime axetil 250 mg tablet 250 mg PO BID 7 Days Qty: 14 0RF No [facility] Zi DVT-PE Treat 30D Start 5 mg (74 tabs) tablets,dose pack 5 mg PO BID Qty: 74 0RF Referrals: ETHAN BIRCH [Primary Care Provider] - 5 days
[2021-10-24 16:42] LABS: MANUAL DIFF FLAG NO
[2021-10-24 16:46] LABS: Basophils Percent Auto 0.5 % (0-2); Eosinophils Absolute Auto 0.1 X10*3/uL (0.0-0.4); Eosinophils Percent Auto 0.9 % (0-4); Hematocrit 36.3 % (37.0-47.0); Hemoglobin 11.8 g/dl (12.0-16.0); Imm Gran Abs Auto 0.03 X10*3/uL (0.00-0.03); Imm Gran Pct Auto 0.3 % (0.0-0.4); Lymphocytes Percent Auto 11.3 % (20-40); Mean Corpuscular HGB Conc 32.5 g/dl (31.0-35.0); Mean Corpuscular Volume 89.2 fL (80.0-98.0); Mean Platelet Volume 8.8 fL (9.4-12.3); Monocytes Absolute Auto 0.7 X10*3/uL (0.1-1.2); Monocytes Percent Auto 7.5 % (2-11); Neutrophils Percent Auto 79.5 % (45-73); Platelet Count 263 X10*3/uL (160-400); Red Blood Count 4.07 X10*6/uL (4.20-5.50); Red Cell Distribution Width 13.4 % (11.0-16.0); White Blood Count 8.8 X10*3/uL (4.8-10.8)
[2021-10-24 16:50] LABS: INTERNATIONAL NORM RATIO 1.4 (0.9-1.1); Prothrombin Time 15.8 SEC (10.0-13.1)
[2021-10-24 16:53] LABS: Partial Thromboplastin Time 30.7 SEC (26.0-36.4)
[2021-10-24 17:15] LABS: Appearance Urine CLEAR; Color Urine YELLOW; Glucose Urine UA NEG (NEG); Leukocyte Esterase Urine TRACE (NEG); Nitrite Urine NEG (NEG); PH 8.5 (5.0-8.0); UACC Culture Trigger NO; Urine Blood TRACE (NEG); Urine Ketones NEG (NEG); Urine Protein NEG (NEG-TRACE)
[2021-10-24 17:21] LABS: UACC CULT YES
[2021-10-24 17:22] LABS: Bacteria Urine TRACE /LPF; WBC Clumps Urine NOTED
[2021-10-24 17:25] LABS: Troponin-I High Sensitivity < 3.5 ng/L (<3.5-17.0)
[2021-10-24 17:26] LABS: Alanine Aminotransferase 15 U/L (0-31); Albumin Level 3.9 g/dL (3.5-5.0); Alkaline Phosphatase 80 U/L (39-117); Anion Gap 14 (12-20); Aspartate Amino Transferase 15 U/L (5-31); B Type Natriuretic Peptide 137 pg/mL (<100); Bilirubin Direct 0.2 mg/dL (0.0-0.5); Bilirubin Total 0.4 mg/dL (0.0-1.0); Blood Urea Nitrogen 16 mg/dL (9-16); Calcium 8.9 mg/dL (8.4-10.2); Carbon Dioxide 22 mmol/L (22-29); Chloride 107 mmol/L (96-108); Creatinine Clr Calc Pharmacy 45.8; Estimated Glomerular Filt Rate 57; Glucose Random 136 mg/dL (60-115); Magnesium 1.8 mg/dL (1.6-2.6); Potassium 4.5 mmol/L (3.3-5.1); Sodium 138 mmol/L (135-145); Total Protein 6.4 g/dL (6.5-8.0)
[2021-10-24 18:22] LABS: Troponin-I High Sensitivity < 3.5 ng/L (<3.5-17.0)
--- NOTE | 2021-10-24 19:22 | PC.NURSE ---
This US was advised that this patient can go back to facility @19:21
--- NOTE | 2021-10-24 19:47 | PC.NURSE ---
This US called [facility] for bls transport to bring patient back to facility, [facility] gave eta of 20:30
== END 2021-10-24 21:49 | disposition skilled nursing facility (03) ==
PROVIDERS: Physician Assistant; Emergency Provider Internal Medicine; PCP Emergency Medicine
DX: R07.89 Other chest pain (principal); N39.0 Urinary tract infection, site not specified; I10 Essential (primary) hypertension; R06.02 Shortness of breath; Z86.711 Personal history of pulmonary embolism; Z79.01 Long term (current) use of anticoagulants; Z79.899 Other long term (current) drug therapy
CPT/HCPCS: 36415; 71045; 80048; 80076; 81001; 83735; 83880; 84484; 85025; 85610; 85730; 87086; 93005; 99284

== ENCOUNTER 2022-01-11 20:54 | Emergency (ER) | payer MEDICARE, MEDICAID, SELFPAY ==
--- NOTE | ~2022-01-11 | XR_ITS ---
EXAMINATION: XR CHEST CLINICAL INFORMATION: Dizziness and weakness COMPARISON: 10/24/2021 TECHNIQUE: Frontal view of the chest was obtained. FINDINGS: Normal symmetric lung volumes. No parenchymal consolidation. No pleural effusion. No pneumothorax. Cardiomediastinal silhouette and pulmonary vascularity are within normal limits. No acute osseous abnormalities. XR/XR chest 1V IMPRESSION: No acute findings
--- NOTE | ~2022-01-11 | CT_ITS ---
EXAMINATION: CT ANGIOGRAM NECK AND HEAD CLINICAL INFORMATION: Right eye double vision, dizziness COMPARISON: Head CT 07/28/2021 TECHNIQUE: Initial noncontrast head CT was performed. Test bolus sequences followed by intravenous administration 70 mL of Omnipaque 350. Helical imaging was performed in the axial plane from the thoracic inlet to the skull vertex. Delayed postcontrast imaging of the head was also performed. The data was processed at the geodetic surveyor technologist's workstation for generation of MIP sequences. Angled MIPs and volume rendered reformatted images were also generated at an offline 3D workstation. Stenoses are assessed in accordance with NASCET criteria unless otherwise indicated. DOSE LOWERING TECHNIQUES: This CT examination was performed using dose optimization techniques as appropriate, variously including the following: - Automated exposure control - Adjustment of mA and/or kV according to patient size (this includes techniques or standardized protocols for targeted exams were dose is matched to indication/reason for exam; i.e. extremities or head) - Use of iterative reconstruction technique DLP: 2258 mGy-cm FINDINGS: Neck CTA: There is a classic 3 vessel branching pattern of the aortic arch. Normal appearance of the visualized aortic arch and proximal branches. No significant stenosis at the branch origins. Both vertebral arteries are widely patent throughout their extracranial cervical course. Mild calcification at the bilateral common carotid artery bifurcations without significant stenosis. Otherwise normal appearance of the common and internal carotid arteries without focal stenosis. Brain CTA: Normal appearance of the intradural vertebral arteries. Normal appearance of the basilar and superior cerebellar arteries. Normally opacified posterior cerebral arteries bilaterally. Normal appearance of the intradural internal carotid arteries without focal stenosis. Normal appearance of the anterior cerebral and middle cerebral arteries without focal occlusion or stenosis. Normal anterior communicating artery. Normal arborization of the middle cerebral arteries. CT Head: No intracranial mass, hemorrhage, extra-axial collection, or midline shift. The watkins-white matter differentiation is preserved. No pathologic intra-axial enhancement or regional oligemia. Mild volume loss is noted. No hydrocephalus. The mastoid air cells and paranasal sinuses remain well aerated. CT Neck: The thyroid gland and remaining cervical soft tissues are normal in appearance. There is degenerative change at the atlantodens articulation. There are degenerative changes in the lower cervical spine with disc space narrowing and endplate osteophyte formation. Scattered bilateral facet arthropathy. Upper Chest: No abnormalities in the visualized lung apices or upper mediastinum. CT/CT angio head neck IMPRESSION: 1. No acute intracranial findings. No large vessel occlusion or significant stenosis in the intracranial circulation. 2. No hemodynamically significant stenosis in the major arteries of the neck.
--- NOTE | 2022-01-11 21:10 | ECG_ITS ---
Test Reason : EYE PROBLEM Blood Pressure : / mmHG Vent. Rate : 042 BPM Atrial Rate : 054 BPM P-R Int : 312 ms QRS Dur : 088 ms QT Int : 468 ms P-R-T Axes : 031 -46 021 degrees QTc Int : 390 ms Sinus bradycardia with marked sinus arrhythmia with 2nd degree SA block (Mobitz I) Left anterior fascicular block Abnormal ECG When compared with ECG of 24-OCT-2021 16:03, Heart rate has decreased Referred By: Kiesha Juarez Electronically Signed By:LESA VILLANUEVA MD
[2022-01-11 21:13] VITALS: BP 132/44; PULSE 57; RESP 17; TEMP 36.9; O2SAT 99; BMI 22.5
--- NOTE | 2022-01-11 21:14 | ED.NEUROSD ---
HPI - Neuro Symptoms/Deficit General Chief Complaint: Eye Problems Stated Complaint: Blurred Vision Source: patient and old records reviewed Mode of arrival: EMS Limitations: other (dementia) History of Present Illness HPI Narrative: 81 yo female with hx of dementia, UTI, HTN, PE on eliquis reports she woke up with dizziness like she was on a boat all day not made worse by anything. She also c/o double vision in R eye. She has no headache, trauma, or other associated symptoms. She states this has never happened before. Onset (ago): hour(s) (12+) Location: other (dizziness, R eye double vision) History of same: No Severity: mild Quality: constant Relieving factors: none Exacerbating factors: none Context: sudden onset On Anticoagulants: Yes Associated symptoms: other (double vision) Treatments Prior to Arrival: none Related Data Previous Rx's Medication Instructions Recorded apixaban 5 mg (74 tabs) tablets in 5 mg PO BID #74 ea 10/11/21 a dose pack (LOOKCAST DVT-PE Treat 30D Start) cefuroxime axetil 250 mg tablet 250 mg PO BID 7 days #14 tabs 10/24/21 Allergies Allergy/AdvReac Type Severity Reaction Status Date / Time meperidine [From Demerol] Allergy Unknown Verified 07/28/21 21:01 Review of Systems Review of Systems: Constitutional : No Fever, No Chills, No Fatigue ENT/Mouth : No sore throat, No Rhinorrhea Eyes: No Eye Pain, No Swelling, No Redness, pos double vision Cardiovascular : No Chest Pain, No SOB, No Dyspnea on Exertion Respiratory : No Cough, No Sputum Gastrointestinal : No Nausea, No Vomiting, No Diarrhea, No abdominal Pain Genitourinary : No Dysuria, No Urinary Frequency, No Hematuria, Musculoskeletal : No joint pain, No Myalgias, No Joint Swelling Skin : No Skin Lesions, No rash Neuro : No Weakness, No Numbness, pos Dizziness, no Headache Psych : No Anxiety/Panic, No Depression Heme/Lymph: No Bruising, No Bleeding,No Lymphadenopathy Endocrine : No Polyuria, No Polydipsia All other systems reviewed and are negative [facility] Past Medical History Attestation statement: The following information was validated with the patient. Medical History Alzheimer disease COVID-19 Depressed Diabetes High cholesterol HTN (hypertension) Pulmonary embolus Vascular dementia Social History Social History Patient Tobacco Use Status: Never used Tobacco Advance Directives: Yes Advance Directives on File: Yes Advance Directives Date on File: 07/30/21 Physical Exam Vital Signs: Vital Signs: Last Vital Signs Temp 97.4 F 01/12/22 02:00 Pulse 46 L 01/12/22 05:07 Resp 14 01/12/22 05:07 BP 119/52 L 01/12/22 05:07 Pulse Ox 97 01/12/22 05:07 O2 Del Method 01/12/22 05:07 BMI result Body Mass Index 22.5 Appearance: Alert. Oriented X2 (person/place). No acute distress. Eyes: Pupils equal, round and reactive to light. no nystagmus, double vision occurrs only out of R eye - has no complaints out of L eye. PRESSURE 12/10/11 santamaria lamp US shows no retinal detachment, lens is slightly deviated to right on US but no obvious detachment, small vitreous hemorrhage seen, no retinal detachment noted. Corneal abrasion inferior portion of eye involves inferior pupil small superficial no stippling, no ulceration, no benedict sign. ENT: Pharynx normal. Neck: Normal inspection. Neck supple. CVS: bradycardic heart rate and rhythm. Pulses normal. Respiratory: No respiratory distress. Breath sounds normal. Abdomen: Soft and non-tender. Skin: Skin warm and dry. Normal skin color. Normal skin turgor. Extremities: No lower extremity edema. No calf ttp Neuro: Oriented X 2 (person/place). No motor deficit. No sensory deficit. Course Course Course Narrative: not on CCB or bblockers - EKG concerning for complete heart block - patient is DNR/DNI do not transfer to hospital BP stable call to brother Thien - HCP he is going to discuss this with his family 10pm family would proceed with pacemaker if needed Dr. Castillo notified 1009pm. if patient wants pacer recommends discussing with Dr. Ocasio - reviewed EKG states this is type I mobitz no pacer needed patient with hx of same in past CBC, chem7, CXR normal at this time, pending CT of head / CTA CT head and CTA negative - stable for DC at this time HR down - BP stable, discussed again with ICU doctor no indication for pacemaker at this time. MDM - Neuro Symptoms/Deficit MDM Narrative Medical decision making narrative: 81 yo female with hx of dementia, UTI, HTN, PE on eliquis here with c/o dizziness as well as R eye double vision - at this time will obtain labs, EKG, CT head/CTA for evidence of mass/clot/stroke. Will US eye as well for vitreous hemorrhage or lens issue. Out of window for any treatment given onset 12+ hours ago. No CP/SOB. Dispo per results and findings. Given this is in 1 eye likely ocular involvement. Lab Data Result diagrams: 01/11/22 21:01/11/22 21: Labs: Lab Results 01/11/22 01/11/22 01/11/22 Range/Units 21:28 21:28 21:28 WBC 10.1 (4.8-10.8) X10*3/uL RBC 4.50 (4.20-5.50) X10*6/uL Hgb 12.9 (12.0-16.0) g/dl Hct 39.3 (37.0-47.0) % MCV 87.3 (80.0-98.0) fL MCH 28.7 (27.0-33.0) pg MCHC 32.8 (31.0-35.0) g/dl RDW 13.3 (11.0-16.0) % Plt Count 279 (160-400) X10*3/uL MPV 8.8 L (9.4-12.3) fL Immature Gran % (Auto) 0.4 (0.0-0.4) % Neut % (Auto) 59.0 (45-73) % Lymph % (Auto) 29.1 (20-40) % [place] % (Auto) 9.2 (2-11) % Eos % (Auto) 1.4 (0-4) % Baso % (Auto) 0.9 (0-2) % Lymph # (Auto) 2.9 (1.2-4.9) X10*3/uL [place] # (Auto) 0.9 (0.1-1.2) X10*3/uL Eos # (Auto) 0.1 (0.0-0.4) X10*3/uL Baso # (Auto) 0.1 (0.0-0.2) X10*3/uL Abs Immat Gran (auto) 0.04 H (0.00-0.03) X10*3/uL Absolute Neuts (auto) 5.9 (2.0-8.3) x10*3/uL Absolute Nucleated RBC 0.000 (0.0-0.012) X10*3/uL Nucleated RBC % (auto) 0.0 (0.0-0.2) /100WBC PT (10.0-13.1) SEC INR (0.9-1.1) APTT (26.0-36.4) SEC Sodium 138 (135-145) mmol/L Potassium 4.2 (3.3-5.1) mmol/L Chloride 106 (96-108) mmol/L Carbon Dioxide 22 (22-29) mmol/L Anion Gap 14 (12-20) BUN 13 (9-16) mg/dL Creatinine 0.74 (0.5-1.4) mg/dL Estim Creat Clear Calc 58.9 Estimated GFR > 60 Random Glucose 135 H (60-115) mg/dL Calcium 8.9 (8.4-10.2) mg/dL Magnesium 1.8 (1.6-2.6) mg/dL Total Bilirubin 0.4 (0.0-1.0) mg/dL Direct Bilirubin < 0.2 (0.0-0.5) mg/dL AST 20 (5-31) U/L ALT 18 (0-31) U/L Alkaline Phosphatase 65 (39-117) U/L Troponin I High Sens (<3.5-17.0) ng/L Total Protein 6.7 (6.5-8.0) g/dL Albumin 3.9 (3.5-5.0) g/dL Urine Color Urine Appearance Urine pH (5.0-9.0) Ur Specific [place] (1.005-1.025) Urine Protein (Neg-Trace) mg/dL Urine Glucose (UA) (Negative) mg/dL Urine Ketones (Negative) mg/dL Urine Blood (Negative) Urine Nitrite (Negative) Ur Leukocyte Esterase (Negative) Urine RBC (0-2) /HPF Urine WBC (0-5) /HPF Ur Squamous Epith Cells (0-2) /HPF Urine Bacteria (None Seen) Hyaline Casts (0-2) /LPF COVID-19 (RAFAEL) Negative (Negative) COVID-19 Clin Com See Note 01/11/22 01/11/22 01/12/22 Range/Units 21:28 21:28 00:47 WBC (4.8-10.8) X10*3/uL RBC (4.20-5.50) X10*6/uL Hgb (12.0-16.0) g/dl Hct (37.0-47.0) % MCV (80.0-98.0) fL MCH (27.0-33.0) pg MCHC (31.0-35.0) g/dl RDW (11.0-16.0) % Plt Count (160-400) X10*3/uL MPV (9.4-12.3) fL Immature Gran % (Auto) (0.0-0.4) % Neut % (Auto) (45-73) % Lymph % (Auto) (20-40) % [place] % (Auto) (2-11) % Eos % (Auto) (0-4) % Baso % (Auto) (0-2) % Lymph # (Auto) (1.2-4.9) X10*3/uL [place] # (Auto) (0.1-1.2) X10*3/uL Eos # (Auto) (0.0-0.4) X10*3/uL Baso # (Auto) (0.0-0.2) X10*3/uL Abs Immat Gran (auto) (0.00-0.03) X10*3/uL Absolute Neuts (auto) (2.0-8.3) x10*3/uL Absolute Nucleated RBC (0.0-0.012) X10*3/uL Nucleated RBC % (auto) (0.0-0.2) /100WBC PT 13.6 H (10.0-13.1) SEC INR 1.2 H (0.9-1.1) APTT 36.9 H D (26.0-36.4) SEC Sodium (135-145) mmol/L Potassium (3.3-5.1) mmol/L Chloride (96-108) mmol/L Carbon Dioxide (22-29) mmol/L Anion Gap (12-20) BUN (9-16) mg/dL Creatinine (0.5-1.4) mg/dL Estim Creat Clear Calc Estimated GFR Random Glucose (60-115) mg/dL Calcium (8.4-10.2) mg/dL Magnesium (1.6-2.6) mg/dL Total Bilirubin (0.0-1.0) mg/dL Direct Bilirubin (0.0-0.5) mg/dL AST (5-31) U/L ALT (0-31) U/L Alkaline Phosphatase (39-117) U/L Troponin I High Sens < 3.5 (<3.5-17.0) ng/L Total Protein (6.5-8.0) g/dL Albumin (3.5-5.0) g/dL Urine Color Yellow Urine Appearance Clear Urine pH 6.5 (5.0-9.0) Ur Specific [place] 1.015 (1.005-1.025) Urine Protein Negative (Neg-Trace) mg/dL Urine Glucose (UA) 250 H (Negative) mg/dL Urine Ketones Negative (Negative) mg/dL Urine Blood Negative (Negative) Urine Nitrite Negative (Negative) Ur Leukocyte Esterase Moderate (2+) H (Negative) Urine RBC 0-2 (0-2) /HPF Urine WBC 11-20 H (0-5) /HPF Ur Squamous Epith Cells 0-2 (0-2) /HPF Urine Bacteria None Seen (None Seen) Hyaline Casts 0-2 (0-2) /LPF COVID-19 (RAFAEL) (Negative) COVID-19 Clin Com ECG Data Attestation: I personally reviewed and interpreted this ECG as follows: ECG interpretation date: 01/11/22 ECG interpretation time: 22:03 Interpretation: Rate: 42 Rhythm: bradycardic varying JUAN MANUEL type I second degree [place]: left Normal P waves. varying JUAN MANUEL Normal QRS complex. ST T wave : nonspecific no EDWARD qTC: normal prior studies: hx of this in the past type I mobitz The study has been interpreted contemporaneously by me. . Discharge Plan Discharge Clinical Impression: Dizziness Corneal abrasion Qualifiers: Encounter type: initial encounter Laterality: right Qualified Code(s): S05.01XA - Injury of conjunctiva and corneal abrasion without foreign body, right eye, initial encounter Patient Disposition: Home, Self-Care Instructions: Corneal Abrasion (ED), Dizziness (ED) Additional Instructions: return to ED for any worsening symptoms or concerns normal CT head and CTA of head and neck corneal abrasion right eye - erythromycin eye ointment twice a day for one week. possible small vitreous hemorrhage noted R eye please see eye doctor this week Prescriptions: No [facility] cefuroxime axetil 250 mg tablet 250 mg PO BID 7 Days Qty: 14 0RF Eliquis DVT-PE Treat 30D Start 5 mg (74 tabs) tablets,dose pack 5 mg PO BID Qty: 74 0RF
--- NOTE | 2022-01-11 21:21 | PC.NURSE ---
Patient presents via EMS from [facility] after telling staff she had blurry/double vision in both eyes since this morning. She has a history of dementia and PE (unknown thinners). Patient is alert, able to state her name,birthday, year and hospital correctly, though does show signs of confusion I don't live at a retirement. she states her only complaint is blurry vision, no other complaints or pain. 5/5 strength in all extremities. speech is clear, no facial asymmetry. pupils are 2 and equal/briskly reactive to light.
--- OUTSIDE RECORDS SUMMARY | 2022-01-11 21:25 | XMS_ITS ---
:1940 Author Care Team Providers Name Role Phone DR. EDILBERTO OROZCO Primary Care Provider [phone] DR. EDILBERTO OROZCO Referring Provider [phone] EDILBERTO OROZCO MD Primary Care Provider [phone] Allergies Code Code System Name Reaction Severity Status Onset 190707 RxNorm Demerol ? ? Active ? Medications Name Status Start Date Stop Date ? ? alendronate 70 mg tablet Active ? Not celso ilable atorvastatin 20 mg tablet Active ? Not av ailable atorvastatin 40 mg tablet Completed ? 2018 cefpodoxime 100 mg tablet Active ? Not av ailable donepezil 10 mg tablet Active ? Not avail able fluoxetine 20 mg tablet Active ? Not avai lable glipizide ER 5 mg tablet, extended release 24 hr Active ? Not available hydrocodone 7.5 mg-acetaminophen 325 mg tablet Active ? Not available hydroxyzine HCl 25 mg tablet Active ? Not available ibuprofen 600 mg tablet Active ? Not avai lable metformin ER 500 mg tablet,extended release 24 hr Active ? Not available naproxen sodium 550 mg tablet Active ? No t available nitrofurantoin monohydrate/macrocrystals 100 mg capsule Active ? Not available oxybutynin chloride ER 15 mg tablet,extended release 24 Active ? Not available hr propranolol 10 mg tablet Active ? Not celso ilable tramadol 50 mg tablet Completed ? 11/01/2018 trazodone 50 mg tablet Active ? Not avail able trospium ER 60 mg capsule,extended release 24 hr Active ? Not available Tylenol-Codeine #3 300 mg-30 mg tablet Active ? Not available Take 1 tablet every 4-6 hours by oral route as needed. warfarin 1 mg tablet Active ? Not availab le Problems Name Status Onset Date Source ? Osteoarthritis of Knee Active ? Encounter Loosening of Total Knee Replacement Active ? Encounter Procedures Date Name Performed by ? 10/19/2018 Total Knee Arthroplasty Information not available Notes: right dr chao ? Shoulder Information not avai lable ? Appendectomy Information not avai lable ? 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 10/21/2018 Cbc Normal Wbc 6.9 10*3/l 3.5-11.0 [facility] 10*3/l [facility] Lab: [address] [place] [address] ? ? Normal Rbc 3.64 10*6/l 3.60-4.80 [facility] 10*6/l [facility] Lab: [address] [place] [address] ? ? Low Hgb 10.6 g/dL 12.0-16.0 [facility] ood g/dL Hospital Lab: [address] [place] [address] ? ? Low Hct 32.6 % 36-48 % [facility] Lab: [address] [place] [address] ? ? Normal Mcv 89.6 fL 79-98 fL [facility] Lab: [address] [place] [address] ? ? Normal Mch 29.1 pg 25.4-34.6 [facility] Lab: [address] [facility] ? ? Normal Mchc 32.5 g/dL 30-36 [facility] g/dL [facility] Lab: [address] [place] [address] ? ? Normal Rdw 13.7 % 11.5-14.5 [facility] Lab: [address] [facility] ? ? Normal Plt 233 10*9/l 150-400 [facility] Lab: [address] [place] [address] ? ? Normal Abs 5.1 1.5-7.5 [facility] Neut [facility] Count Lab: [address] [place] [address] 10/21/2018 CMP, Normal Bun 11 mg/dL 8-23 [facility] Serum or mg/dL [facility] Plasma Lab: [address] [place] [address] ? ? Normal Na 141 mmol/L 136-145 [facility] od mmol/L [facility] Lab: [address] [place] [address] ? ? Normal K 4.2 mmol/L 3.5-5.1 [facility] od mmol/L [facility] Lab: [address] [place] [address] ? ? High Cl 109 mmol/L 98-107 [facility] d mmol/L [facility] Lab: [address] [place] [address] ? ? Normal Co2 22.4 mmol/L 22-29 [facility] od mmol/L [facility] Lab: [address] [place] [address] ? ? High Glucose 116 mg/dL 82-115 [facility] od mg/dL [facility] Lab: [address] [place] [address] ? ? Normal Creatin 0.80 mg/dL 0.50-0.90 [facility] ine mg/dL [facility] Lab: [address] [place] [address] ? ? Normal Gfr 71 ? [facility] Lab: [address] [place] [address] ? ? Low Calcium 8.1 mg/dL 8.8-10.2 [facility] mg/dL [facility] Lab: [address] [place] [address] ? ? Low Total 4.9 g/dL 6.4-8.3 [facility] Protein g/dL [facility] Lab: [address] [place] [address] ? ? Low Albumin 3.1 g/dL 3.5-5.2 [facility] od g/dL [facility] Lab: [address] [place] [address] ? ? Low Globuli 1.8 gm/dL 2.0-3.5 [facility] gm[facility]dL [facility] Lab: [address] [place] [address] ? ? Normal Alb/forrest 1.7 % 1.1-2.5 % Final [facility] od b Ratio Hospital Lab: [address] [place] [address] ? ? Normal Bilirub 0.4 mg/dL 0.2-1.2 Final [facility] ood in Tot mg/dL Hospital Lab: [address] [place] [address] ? ? Normal Alk 60 U/L 35-104 [facility] Phos U/L Hospital Lab: [address] [place] [address] ? ? Normal AST(SGO 21 U/L 5-32 U/L Final [facility] T) [facility] Lab: [address] [facility] Busy ? ? Normal Alt 8 U/L 5-33 U/L [facility] (Sgpt) [facility] Lab: [address] [place] [address] Busy ? ? Normal Anion 14.0 mmol/L 10-20 [facility] [place] mmol/L [facility] Lab: [address] [place] [address] 10/20/2018 Cbc Normal Wbc 9.6 10*3/l 3.5-11.0 [facility] 10*3/l [facility] Lab: [address] [place] [address] ? ? Normal Rbc 3.73 10*6/l 3.60-4.80 [facility] 10*6/l [facility] Lab: [address] [place] [address] ? ? Low Hgb 10.8 g/dL 12.0-16.0 [facility] ood g/dL [facility] Lab: [address] [place] [address] ? ? Low Hct 33.2 % 36-48 % [facility] Lab: [address] [place] [address] ? ? Normal Mcv 89.0 fL 79-98 fL [facility] Lab: [address] [place] [address] ? ? Normal Mch 29.0 pg 25.4-34.6 [facility] d pg [facility] Lab: [address] [place] [address] ? ? Normal Mchc 32.5 g/dL 30-36 [facility] g/dL [facility] Lab: [address] [place] [address] ? ? Normal Rdw 13.5 % 11.5-14.5 [facility] % [facility] Lab: [address] [place] [address] ? ? Normal Plt 247 10*9/l 150-400 [facility] 10*9/l [facility] Lab: [address] [place] [address] ? ? High Abs 7.6 1.5-7.5 Final [facility] Neut [facility] Count Lab: [address] [place] [address] 10/20/2018 CMP, Normal Bun 10 mg/dL 8-23 Final [facility] ood Serum or mg/dL [facility] Plasma Lab: [address] [place] [address] ? ? Normal Na 139 mmol/L 136-145 Final [facility] od mmol/L [facility] Lab: [address] [place] [address] ? ? Normal K 4.6 mmol/L 3.5-5.1 Final [facility] od mmol/L Hospital Lab: [address] [place] [address] ? ? Normal Cl 107 mmol/L 98-107 [facility] d mmol/L Hospital Lab: [address] [place] [address] ? ? Normal Co2 22.1 mmol/L 22-29 [facility] od mmol/L Hospital Lab: [address] [place] [address] ? ? High Glucose 147 mg/dL 82-115 Final [facility] od mg/dL [facility] Lab: [address] [place] [address] ? ? Normal Creatin 0.87 mg/dL 0.50-0.90 Final [facility] ine mg/dL [facility] Lab: [address] [place] [address] ? ? Normal Gfr 64 ? Final [facility] Lab: [address] [place] [address] ? ? Low Calcium 7.9 mg/dL 8.8-10.2 Final [facility] mg/dL [facility] Lab: [address] [place] [address] ? ? Low Total 4.9 g/dL 6.4-8.3 Final [facility] Protein g/dL [facility] Lab: [address] [place] [address] ? ? Low Albumin 3.3 g/dL 3.5-5.2 [facility] g/dL [facility] Lab: [address] [place] [address] ? ? Low Globuli 1.6 gm/dL 2.0-3.5 [facility] gm[facility]dL [facility] Lab: [address] [place] [address] ? ? Normal Alb/forrest 2.1 % 1.1-2.5 % Final [facility] od b Ratio Hospital Lab: [address] [place] [address] ? ? Normal Bilirub 0.3 mg/dL 0.2-1.2 [facility] in Tot mg/dL Hospital Lab: [address] [place] [address] ? ? Normal Alk 60 U/L 35-104 [facility] Phos U/L Hospital Lab: [address] [place] [address] ? ? Normal AST(SGO 18 U/L 5-32 U/L [facility] d T) Hospital Lab: [address] [place] [address] ? ? Normal Alt 11 U/L 5-33 U/L [facility] (Sgpt) [facility] Lab: [address] [place] [address] ? ? Normal Anion 15.0 mmol/L 10-20 [facility] od [place] mmol/L Hospital Lab: [address] [place] [address] 10/19/2018 Surgical ? Surgica ? ? Final [facility] Pathology l Hospita l Study Lab: [address] 10/18/2018 Type + Normal Blood A positive ? Final [facility] Screen, Type [facility] Serum Lab: [address] ? ? Normal Antibod negative ? Final [facility] y [facility] Lab: [address] 10/14/2018 Cbc Normal Wbc 8.8 10*3/l 3.5-11.0 [facility] 10*3/l [facility] Lab: [address] [place] [address] ? ? Normal Rbc 4.62 10*6/l 3.60-4.80 [facility] 10*6/l [facility] Lab: [address] [place] ? ? Normal Hgb 13.5 g/dL 12.0-16.0 [facility] ood g/dL [facility] Lab: [address] [place] ? ? Normal Hct 40.5 % 36-48 % [facility] Lab: [address] ? ? Normal Mcv 87.7 fL 79-98 fL [facility] Lab: [address] [place] ? ? Normal Mch 29.2 pg 25.4-34.6 [facility] Lab: [address] ? ? Normal Mchc 33.3 g/dL 30-36 [facility] g/dL [facility] Lab: [address] [place] ? ? Normal Rdw 13.4 % 11.5-14.5 [facility] Lab: [address] ? ? Normal Pl[address] 314 10*9/l 150-400 [facility] od 10*9/l Hospital Lab: [address] [place] ? ? Normal Abs 5.7 1.5-7.5 [facility] Neut [facility] Count Lab: [address] 10/14/2018 Urinalysi Normal Color yellow yellow Final [facility] Dipstick Lab: [address] [place] ? ? Normal Appeara turbid clear [facility] Lab: [address] ? ? Normal Specifi 1.010 1.001-1.0 [facility] od c Gravit 35 Hospital Lab: [address] [place] [address] ? ? Normal Urine negative neg Final [facility] Glucose [facility] Lab: [address] [facility] ? ? Normal Urine negative neg Final [facility] n Lab: [address] [facility] ? ? High Urine trace neg Final [facility] Ketone [facility] Lab: [address] [facility] ? ? High Urine 1+ neg Final [facility] HGB [facility] Lab: [address] [facility] ? ? Normal Urine 7.5 5.0-8.0 Final [facility] pH [facility] Lab: [address] [facility] ? ? High Urine 1+ mg/dL neg mg/dL Final [facility] od Protein Hospital Lab: [address] [facility] ? ? Normal Urobili 1.0 erlich 0.2-1.0 Final [facility] nogen erlich [facility] Lab: [address] [facility] ? ? High Nitrite positive neg Final [facility] d [facility] Lab: [address] [facility] ? ? High Leukocy 3+ neg Final [facility] te Emily [facility] Lab: [address] [facility] 10/14/2018 Leukocyte ? Results ? ? Canc[facility] Esterase, Hospita l Quant, Lab: 242 Urine [facility] 10/14/2018 Urinalysi High Micro ? ? Final [facility] s, Exam [facility] Complete Lab: [address] [facility] 10/14/2018 BMP, Normal Bun 16 mg/dL 8-23 Final [facility] ood Serum or mg/dL Hospital Plasma Lab: [address] [facility] ? ? Normal Na 141 mmol/L 136-145 [facility] mmol/L [facility] Lab: [address] [place] [address] ? ? Normal K 4.8 mmol/L 3.5-5.1 [facility] mmol/L [facility] Lab: [address] [facility] ? ? Normal Cl 103 mmol/L 98-107 Final [facility] d mmol/L Hospital Lab: [address] [facility] ? ? Normal Co2 22.5 mmol/L 22-29 [facility] mmol/L [facility] Lab[facility] [address] [facility] ? ? Low Glucose 81 mg/dL 82-115 [facility] d mg/dL Hospital Lab: [address] [facility] ? ? High Creatin 1.48 mg/dL 0.50-0.90 Final [facility] ine mg/dL Hospital Lab: [address] [facility] ? ? Normal Gfr 34 ? Final [facility] [address] [facility] ? ? Normal Calcium 9.7 mg/dL 8.8-10.2 Final [facility] mg/dL [facility] [address] [facility] ? ? Normal Anion 20.0 mmol/L 10-20 [facility] [place] mmol/L [facility] Lab: [address] 10/14/2018 Culture, URINE Normal Urine ? ? Final [facility] ood Urine CLEAN Culture Hospital CATCH Lab: [address] [place] [address] ? ? URINE Susceptible Urine amikacin ? Final [facility] CLEAN Culture <=2 S [facility] CATCH [facility] [address] [facility] ? ? URINE Resistant Urine ampicillin ? Final [facility] CLEAN Culture >=32 R [facility] CATCH [facility] [address] [facility] ? ? URINE Susceptible Urine ? ? [facility] CATCH Lab: [address] [place] [address] Past Encounters None recorded. Social History Tobacco Smoking Status Never Smoker Vaccine List None recorded. Plan of Care Reminders Provider Appointments None recorded. ? ? Lab None recorded. ? ? Referral None recorded. ? ? Procedures None recorded. ? ? Surgeries None recorded. ? ? Imaging None recorded. ? ? Vitals 10/14/2018 08:40AM Ortho-pre op Height Weight BMI Blood Pressure 64 in 169 lbs 16 oz 29.2 kg/m2 104/58 mm[Hg] 09/29/2018 01:00PM ORTHO-New Patient Height Weight BMI 64 in 150 lbs 25.7 kg/m2 01/15/2016 11:30AM URO-Follow Up Height Weight BMI Blood Pressure 63.5 in 185 lbs 32.3 kg/m2 119/86 mm[Hg] 12/20/2015 11:00AM URO-Consult Height Weight BMI Blood Pressure 63.5 in 181 lbs 16 oz 31.7 kg/m2 144/74 mm[Hg]
[2022-01-11] MEDS: Tetracaine HCl/PF 0.5% Oph Sol 4 ML DROPS 1 DROP EYE-RIGHT (21:32)
[2022-01-11 21:33] LABS: MANUAL DIFF FLAG NO
[2022-01-11 21:35] LABS: Basophils Absolute Auto 0.1 X10*3/uL (0.0-0.2); Basophils Percent Auto 0.9 % (0-2); Eosinophils Absolute Auto 0.1 X10*3/uL (0.0-0.4); Eosinophils Percent Auto 1.4 % (0-4); Hematocrit 39.3 % (37.0-47.0); Hemoglobin 12.9 g/dl (12.0-16.0); Imm Gran Abs Auto 0.04 X10*3/uL (0.00-0.03); Imm Gran Pct Auto 0.4 % (0.0-0.4); Lymphocytes Absolute Auto 2.9 X10*3/uL (1.2-4.9); Lymphocytes Percent Auto 29.1 % (20-40); Mean Corpuscular HGB Conc 32.8 g/dl (31.0-35.0); Mean Corpuscular Hemoglobin 28.7 pg (27.0-33.0); Mean Corpuscular Volume 87.3 fL (80.0-98.0); Mean Platelet Volume 8.8 fL (9.4-12.3); Monocytes Absolute Auto 0.9 X10*3/uL (0.1-1.2); Monocytes Percent Auto 9.2 % (2-11); Neutrophils Absolute Auto 5.9 x10*3/uL (2.0-8.3); Platelet Count 279 X10*3/uL (160-400); Red Cell Distribution Width 13.3 % (11.0-16.0); White Blood Count 10.1 X10*3/uL (4.8-10.8)
[2022-01-11 21:43] LABS: INTERNATIONAL NORM RATIO 1.2 (0.9-1.1); Prothrombin Time 13.6 SEC (10.0-13.1)
[2022-01-11 21:45] LABS: Partial Thromboplastin Time 36.9 SEC (26.0-36.4)
[2022-01-11 21:52] LABS: COVID-19 Test Negative (Negative)
[2022-01-11 21:53] LABS: Troponin-I High Sensitivity < 3.5 ng/L (<3.5-17.0)
[2022-01-11 21:56] LABS: Alanine Aminotransferase 18 U/L (0-31); Albumin Level 3.9 g/dL (3.5-5.0); Alkaline Phosphatase 65 U/L (39-117); Anion Gap 14 (12-20); Aspartate Amino Transferase 20 U/L (5-31); Bilirubin Direct < 0.2 mg/dL (0.0-0.5); Bilirubin Total 0.4 mg/dL (0.0-1.0); Blood Urea Nitrogen 13 mg/dL (9-16); Calcium 8.9 mg/dL (8.4-10.2); Carbon Dioxide 22 mmol/L (22-29); Chloride 106 mmol/L (96-108); Creatinine Clr Calc Pharmacy 58.9; Estimated Glomerular Filt Rate > 60; Glucose Random 135 mg/dL (60-115); Magnesium 1.8 mg/dL (1.6-2.6); Potassium 4.2 mmol/L (3.3-5.1); Sodium 138 mmol/L (135-145); Total Protein 6.7 g/dL (6.5-8.0)
[2022-01-11 21:59] VITALS: PULSE 50; RESP 15; TEMP 36.8; O2SAT 98
--- NOTE | 2022-01-11 22:00 | PC.NURSE ---
Patient was change into hospital attire ,also patient was hooked up to registered nurse cardiac ekg taken
[2022-01-11] MEDS: Calcium Gluconate/NaCl,Iso-Osm 2 GM/100 ML PLAST..BAG IV (22:24)
[2022-01-11 22:27] VITALS: BP 129/45; PULSE 46; O2SAT 99
--- NOTE | 2022-01-11 22:28 | PC.NURSE ---
HR remains bradycardic in the 40s in what appears to be incomplete heart block. MD rodriguez is aware and is reacting out to family about goals of care, as patient's MOLST states DNR/DNI/DNH. patient is asymptomatic. BPs stable. calcium gluconate infusing now
[2022-01-11] MEDS: Erythromycin Base 0.5% Oph Oin 1 GM TUBE 1 CM EYE-RIGHT (23:16)
[2022-01-12] VITALS: BP 177/57; PULSE 55; RESP 18; TEMP 36.4; O2SAT 98
--- NOTE | 2022-01-12 00:44 | PC.NURSE ---
PATIENT WAS ASSISTED UNTO BEDPAN ,VOIDED LARGE AMOUNT ,ROBB CARE GIVEN ,PATIENT STATED SHE WAS HUNGRY ,PATIENT ATE A HAM SANDWICH AND 2 CARTON OF MILK .
[2022-01-12 00:54] LABS: Appearance Urine Clear; Color Urine Yellow; Glucose Urine UA 250 mg/dL (Negative); Leukocyte Esterase Urine Moderate (2+) (Negative); Nitrite Urine Negative (Negative); PH 6.5 (5.0-9.0); Specific Gravity - Urine 1.015 (1.005-1.025); UMIC TRIGGER UACC YES; Urine Blood Negative (Negative); Urine Ketones Negative (Negative); Urine Protein Negative (Neg-Trace)
[2022-01-12 00:57] LABS: Bacteria Urine None Seen (None Seen); Hyaline Casts Urine 0-2 /LPF (0-2); RBC Urine 0-2 /HPF (0-2); Squamous Epithelial Cell Urine 0-2 /HPF (0-2); UACC Culture Trigger YES
[2022-01-12 02:00] VITALS: BP 134/47; PULSE 55; RESP 16; TEMP 36.3; O2SAT 97
--- NOTE | 2022-01-12 02:22 | PC.NURSE ---
patient is awake at this time playing with sheets .
--- NOTE | 2022-01-12 04:41 | PC.NURSE ---
This RN has attempted to call [facility] in [place] to provide an update about patient being transferred back home- no answer overnight from charge accounts audit clerk or either nursing extension.
[2022-01-12 04:43] VITALS: PULSE 48; RESP 15; O2SAT 98
--- NOTE | 2022-01-12 04:44 | PC.NURSE ---
HR remains bradycardic, as low as 38 over night in mobiz block. MD Juarez aware and has reached out to cardiology and patient's care team. plan is still for transfer back to [facility] in AM. EMS booked.
[2022-01-12 05:07] VITALS: BP 119/52; PULSE 46; RESP 14; O2SAT 97
--- NOTE | 2022-01-12 05:16 | PC.NURSE ---
Patient's HR as low as 29, quickly rebounding to 40s-50s, patient asymptomatic throughout. MD Juarez made aware, who again reaches out to cardiology who is OK with patient's transfer back to home facility. Patient conversational, denies pain, and is resting comfortably in stretcher.
--- NOTE | 2022-01-12 06:04 | PC.NURSE ---
Report given to BRYSON Avendano at [facility].
[2022-01-12 06:45] VITALS: RESP 17
[2022-01-12 07:12] VITALS: BP 126/50; PULSE 51; RESP 14; TEMP 36; O2SAT 99
== END 2022-01-12 10:28 | disposition home or self-care (01) ==
PROVIDERS: Emergency Provider Emergency Medicine; PCP Emergency Medicine
DX: R42 Dizziness and giddiness (principal); S05.01XA Injury of conjunctiva and corneal abrasion without foreign body, right eye, initial encounter; X58.XXXA Exposure to other specified factors, initial encounter; H53.8 Other visual disturbances; Z20.822 Contact with and (suspected) exposure to COVID-19; I10 Essential (primary) hypertension; G30.9 Alzheimer's disease, unspecified; F02.80 Dementia in other diseases classified elsewhere, unspecified severity, without behavioral disturbance, psychotic disturbance, mood disturbance, and anxiety; E78.00 Pure hypercholesterolemia, unspecified; Z87.440 Personal history of urinary (tract) infections; Z86.711 Personal history of pulmonary embolism; Z79.01 Long term (current) use of anticoagulants; Y93.84 Activity, sleeping; Y92.122 Bedroom in nursing home as the place of occurrence of the external cause; Y99.9 Unspecified external cause status; Z79.899 Other long term (current) drug therapy
CPT/HCPCS: 36415; 70496; 70498; 71045; 80048; 80076; 81001; 83735; 84484; 85025; 85610; 85730; 87086; 87635; 93005; 96365; 96366; 99284; 99285; J0610

== ENCOUNTER 2022-04-14 19:28 | Emergency (ER) | payer MEDICARE, MEDICAID, SELFPAY ==
--- NOTE | ~2022-04-14 | CT_ITS ---
EXAMINATION: CTA CHEST PE STUDY CLINICAL INFORMATION: h/o PE, sudden onset right chest pain COMPARISON: No pertinent prior studies are available for comparison. TECHNIQUE: Prior to contrast administration, noncontrast localization images were obtained. After the administration of 65 mL of Omnipaque nonionic IV contrast, contiguous thin slice helical images were obtained through the thorax. Reformatted MIP images in the coronal and sagittal planes were obtained at the acquisition workstation. This CT examination was performed using dose optimization techniques as appropriate, variously including the following: *Automated exposure control *Adjustment of mA and/or kV according to patient size (this includes techniques or standardized protocols for targeted exams where dose is matched to indication/reason for exam; i.e. extremities or head) *Use of iterative reconstruction technique DLP: 377 mGy-cm. FINDINGS: The bolus timing on this study was acceptable for visualization of the pulmonary arterial tree. There are no intraluminal pulmonary arterial filling defects present to suggest pulmonary embolism. Bibasilar dependent atelectasis. No abnormal pulmonary nodules or masses are appreciated. No significant hilar or mediastinal adenopathy. There is no evidence of pleural effusion or pneumothorax. The heart is normal in size. No evidence of ventricular septal bowing or right heart strain. Great prominent coronary artery calcification as well as aortic vascular calcification noted. There is no pericardial effusion or pericardial thickening. Metallic artifact from the right hip prosthesis noted Limited evaluation of the upper abdominal viscera is unremarkable. CT/CT angio chest PE protocol IMPRESSION: 1. No evidence for pulmonary emboli. Mild basilar atelectasis VTE: Negative
[2022-04-14 19:36] VITALS: BP 119/57; BP 132/44; PULSE 61; PULSE 69; RESP 16; TEMP 37.1; O2SAT 100; O2SAT 99; BMI 23.1
--- NOTE | 2022-04-14 19:41 | ECG_ITS ---
Test Reason : CHEST PIAN Blood Pressure : / mmHG Vent. Rate : 060 BPM Atrial Rate : 060 BPM P-R Int : 288 ms QRS Dur : 088 ms QT Int : 416 ms P-R-T Axes : 020 -47 017 degrees QTc Int : 416 ms Sinus rhythm with 1st degree A-V block Left axis deviation Possible Lateral infarct , age undetermined Inferior infarct , age undetermined Abnormal ECG When compared with ECG of 11-JAN-2022 21:50, Sinus rhythm is no longer with 2nd degree SA block (Mobitz I) Referred By: Generic ED Physician Electronically Signed By:CHELO MAN MD
--- NOTE | 2022-04-14 19:45 | ED.CHESTPAIN ---
HPI - Chest Pain General Chief Complaint: Chest Pain Stated Complaint: CP Time Seen by Provider: 04/14/22 19:34 Source: patient Mode of arrival: EMS Limitations: no limitations History of Present Illness HPI narrative: 81-year-old female who presents emergency department for evaluation of right-sided chest pain. She states that the pain came on suddenly at noon. She points to her right breast and right lateral chest when asked to localize the pain. She describes the pain is a constant, heaviness is a elephant is sitting on her chest. She states the pain is 8/10. The pain does not change with breathing or with movement. She states the pain does radiate to her back. She does feel short of breath with exertion but states that when she rests she has no shortness of breath. She denied fever, chills, rhinorrhea, sore throat. She states she has a nonproductive cough. She had nausea with no vomiting. She denied lightheadedness, dizziness or diaphoresis. In reviewing her ER visits the patient was seen on 10/11/2021 for 6 hours of right-sided chest pain that radiated to her back, she was diagnosed with a pulmonary embolism and was started on Eliquis. Patient states she still is taking Eliquis. I did review the information sent in from [facility]. Follow-up information was on the transfer note: Complains of 8/10 chest pain, please evaluate further, history of clots ? the transfer note is consistent with the patient's description of her obtain history Related Data Previous Rx's Medication Instructions Recorded apixaban 5 mg (74 tabs) tablets in 5 mg PO BID #74 ea 10/11/21 a dose pack (Eliquis DVT-PE Treat 30D Start) cefuroxime axetil 250 mg tablet 250 mg PO BID 7 days #14 tabs 10/24/21 Allergies Allergy/AdvReac Type Severity Reaction Status Date / Time meperidine [From Demerol] Allergy Unknown Verified 07/28/21 21:01 Review of Systems Review of Systems: Yes all other systems are reviewed and are negative [facility] Past Medical History [facility] Narrative: Social history: The patient denies tobacco, alcohol and drug use. She is resident of [facility]. She denies tobacco, alcohol and drug use. Medical History Alzheimer disease COVID-19 Depressed Diabetes High cholesterol HTN (hypertension) Pulmonary embolus Vascular dementia Social History Social History Patient Tobacco Use Status: Never used Tobacco Advance Directives: Yes Advance Directives on File: Yes Advance Directives Date on File: 07/30/21 Physical Exam Vital Signs: Vital Signs: Last Vital Signs Temp 98.8 F 04/14/22 19:36 Pulse 61 04/14/22 19:36 Resp 16 04/14/22 19:36 BP 132/44 L 04/14/22 19:36 Pulse Ox 100 04/14/22 19:36 O2 Del Method 04/14/22 19:36 BMI result Body Mass Index 23.1 Const: General: cooperative and no acute distress Orientation/consciousness: oriented to person and oriented to place Limitations: no limitations HEENT: Head: Yes normal to inspection, Yes normocephalic and Yes atraumatic Ears: external ears normal General nose exam: Normal external nose present Face and sinus: Yes normal facial exam Mouth: Normal oral and palatal mucosa present Throat: Yes posterior oropharynx normal Eyes: General: appearance normal, both eyes and all related structures Pupils: Equal, round and reactive pupils present Neck: Neck: Yes normal visual inspection, Yes no lymphadenopathy, Yes trachea midline and Yes supple Chest: Chest palpation & inspection: normal inspection of the chest and normal palpation of entire chest wall Resp: Effort & Inspection: normal respiratory effort and able to speak in complete sentences Auscultation: clear to auscultation bilaterally Cardio: Rate: regular rate Rhythm: regular rhythm Heart sounds: S1 normal heart sound present, S2 normal heart sound present and Murmur heart sound present (3/6 systolic murmur increased at the right upper sternal border) GI: Inspection: Yes normal to inspection Palpation (GI): Soft to palpation, nontender and no guarding Auscultation: normal bowel sounds : General: Yes no CVA tenderness Back/Spine/Pelvis: Back: no CVA tenderness Skin: General skin exam: no rashes or lesions noted Neuro: General: oriented to person and oriented to place Cranial nerves: Yes CN's II-XII intact bilaterally and Yes Equal, round and reactive pupils present Cognition (Neuro): normal cognition Motor exam (neuro): 5/5 motor strength present throughout Extrem: General: Yes normal to inspection Psych: Appearance: grossly normal Speech and movement: Normal speech and movement present Affect: normal affect Attitude: cooperative Thought process: Normal thought process present Thought content: Normal thought content present Medications Administered Discontinued Medications Generic Name Dose Route Start Last Admin Trade Name Yuliet PRN Reason Stop Dose Admin Acetaminophen 975 mg 04/14/22 20:11 04/14/22 20:19 Acetaminophen 325 Mg Tablet PO 04/14/22 20:12 975 mg ONCE ONE Administration Iohexol 100 ml 04/14/22 21:08 04/14/22 21:08 Iohexol 350 Mg/Ml 100 Ml Infus..Btl IV 04/14/22 21:09 65 ml ONCE ONE Administration Medical Decision Making Medical Decision Making MDM Narrative: 81-year-old female who presents emergency department for evaluation of right-sided chest pain which came on suddenly at noon, is been constant for 8 hours. Patient describes the pain is a heaviness as if an elephant sitting on her right chest, the pain does not change with movement or with breathing. The pain does radiate to her back. Patient was diagnosed with pulmonary embolism on 10/11/2021 and had similar symptoms of that time. Patient is on Eliquis. I ordered a laboratory evaluation to include CBC, CMP, lipase, troponin, COVID-19, influenza and RSV, PT/INR, PTT, D-dimer. Given the similarities between today's presentation in a presentation with P, I did order a CT pulmonary angiogram PE protocol to rule out pulmonary embolism. Patient's pain was treated with Tylenol 975 mg orally 2201: Interpretation of laboratory evaluation is as follows: D-dimer was elevated 233. Anemia with an H&H of 11 and 34. Elevated glucose 180. COVID-19, influenza and RSV negative. High sensitive troponin I was below detectable limits. Given the patient's below detectable troponin, I doubt the patient has 8 hours of pain is secondary to myocardial injury. The CT pulmonary angiogram PE protocol was negative for PE your other acute findings which is also reassuring. Patient got no relief of her pain with Tylenol orally. Patient was given morphine 2 mg IV. At this time I suspect the patient's pain is musculoskeletal and she can be discharged back to her care facility. Differential Diagnosis Differential Diagnoses: The differential diagnosis associated with the presentation includes Differential diagnosis includes but is not limited to myocardial infarction, angina, aortic dissection, pulmonary embolism, pleurisy, chest wall pain Lab Data [facility] Lab Attestation statement: I reviewed the patient's lab results. The please see [facility] for discussion of labs. 04/14/22 20:03 04/14/22 20:03 Labs: Lab Results 04/14/22 04/14/22 04/14/22 Range/Units 20:03 20:03 20:03 WBC 9.5 (4.8-10.8) X10*3/uL RBC 3.96 L (4.20-5.50) X10*6/uL Hgb 11.4 L (12.0-16.0) g/dl Hct 34.2 L (37.0-47.0) % MCV 86.4 (80.0-98.0) fL MCH 28.8 (27.0-33.0) pg MCHC 33.3 (31.0-35.0) g/dl RDW 13.7 (11.0-16.0) % Plt Count 304 (160-400) X10*3/uL MPV 8.5 L (9.4-12.3) fL Absolute Nucleated RBC 0.000 (0.0-0.012) X10*3/uL Nucleated RBC % (auto) 0.0 (0.0-0.2) /100WBC PT (10.0-13.1) SEC INR (0.9-1.1) APTT (26.0-36.4) SEC D-Dimer High Sensitivty NG/ML Sodium 136 (135-145) mmol/L Potassium 4.5 (3.3-5.1) mmol/L Chloride 101 (96-108) mmol/L Carbon Dioxide 25 (22-29) mmol/L Anion Gap 15 (12-20) BUN 13 (9-16) mg/dL Creatinine 0.91 (0.5-1.4) mg/dL Estim Creat Clear Calc 42.5 Estimated GFR 59 Random Glucose 180 H (60-115) mg/dL Calcium 9.7 D (8.4-10.2) mg/dL Total Bilirubin 0.3 (0.0-1.0) mg/dL Direct Bilirubin < 0.2 (0.0-0.5) mg/dL AST 12 (5-31) U/L ALT 11 (0-31) U/L Alkaline Phosphatase 70 (39-117) U/L Troponin I High Sens < 3.5 (<3.5-17.0) ng/L Total Protein 6.3 L (6.5-8.0) g/dL Albumin 3.8 (3.5-5.0) g/dL Lipase 27 (8-78) U/L Influenza Type A (PCR) (Negative) Influenza Type B (PCR) (Negative) RSV RNA Qual (PCR) (Negative) SARS-CoV-2 RNA (RT-PCR) (Negative) 04/14/22 04/14/22 Range/Units 20:07 20:20 WBC (4.8-10.8) X10*3/uL RBC (4.20-5.50) X10*6/uL Hgb (12.0-16.0) g/dl Hct (37.0-47.0) % MCV (80.0-98.0) fL MCH (27.0-33.0) pg MCHC (31.0-35.0) g/dl RDW (11.0-16.0) % Plt Count (160-400) X10*3/uL MPV (9.4-12.3) fL Absolute Nucleated RBC (0.0-0.012) X10*3/uL Nucleated RBC % (auto) (0.0-0.2) /100WBC PT 14.7 H (10.0-13.1) SEC INR 1.3 H (0.9-1.1) APTT 36.4 (26.0-36.4) SEC D-Dimer High Sensitivty 233 NG/ML Sodium (135-145) mmol/L Potassium (3.3-5.1) mmol/L Chloride (96-108) mmol/L Carbon Dioxide (22-29) mmol/L Anion Gap (12-20) BUN (9-16) mg/dL Creatinine (0.5-1.4) mg/dL Estim Creat Clear Calc Estimated GFR Random Glucose (60-115) mg/dL Calcium (8.4-10.2) mg/dL Total Bilirubin (0.0-1.0) mg/dL Direct Bilirubin (0.0-0.5) mg/dL AST (5-31) U/L ALT (0-31) U/L Alkaline Phosphatase (39-117) U/L Troponin I High Sens (<3.5-17.0) ng/L Total Protein (6.5-8.0) g/dL Albumin (3.5-5.0) g/dL Lipase (8-78) U/L Influenza Type A (PCR) NEGATIVE (Negative) Influenza Type B (PCR) NEGATIVE (Negative) RSV RNA Qual (PCR) NEGATIVE (Negative) SARS-CoV-2 RNA (RT-PCR) NEGATIVE (Negative) Independent Interpretation I performed an independent interpretation of an: EKG Interpretation: My interpretation of the EKG is as follows: Sinus rhythm with a first-degree AV block with ID interval of 288, rate was 60, QRS and QTC durations were normal, patient had inverted T-wave in lead 3, there are Q-waves in lead 3 and AVF, there is no ST segment elevation, no ST segment depression he. Compared to EKG dated 01/11/2022 first-degree AV block is old, Q-waves in 3 and AVF are old as well. Radiology Impression Discussion of test interpretation with radiology: I have reviewed the radiologist's reading. Radiologist Impression: CT/CT angio chest PE protocol IMPRESSION: 1.? No evidence for pulmonary emboli. Mild basilar atelectasis VTE: Negative Dictated By: Rainer Prieto MD Signed By:<Electronically signed by Rainer Prieto MD in OV>04/14/22 [id number] External Record Review External record reviewed: Other (jail records) Discharge Plan Discharge Clinical Impression: Chest pain Patient Disposition: Home, Self-Care Instructions: Chest Pain (ED) Additional Instructions: Your EKG was unchanged from your previous EKG. Your high sensitivity troponin I was below detectable limits suggesting that you did not have a heart attack or myocardial injury is the cause of your chest pain. Your D-dimer was slightly elevated 233 (below 230 is normal). The CT pulmonary angiogram PE protocol was negative for pulmonary emboli and there were no other abnormality seen by the radiologist. At this time, I believe that your pain is secondary to muscle pain or joint pain of your chest. You were treated with Tylenol 975 mg orally and morphine 2 mg IV. Take Tylenol (acetaminophen) 500 mg pills, 2 pills every 4 to 6 hours as needed for pain. Follow-up with your doctor in 2 days. Please return to the emergency department if your symptoms get worse or if you develop any symptoms that are concerning to you. Prescriptions: No Action cefuroxime axetil 250 mg tablet 250 mg PO BID 7 Days Qty: 14 0RF Eliquis DVT-PE Treat 30D Start 5 mg (74 tabs) tablets,dose pack 5 mg PO BID Qty: 74 0RF
[2022-04-14 20:12] LABS: Hematocrit 34.2 % (37.0-47.0); Hemoglobin 11.4 g/dl (12.0-16.0); Mean Corpuscular HGB Conc 33.3 g/dl (31.0-35.0); Mean Corpuscular Hemoglobin 28.8 pg (27.0-33.0); Mean Corpuscular Volume 86.4 fL (80.0-98.0); Mean Platelet Volume 8.5 fL (9.4-12.3); Platelet Count 304 X10*3/uL (160-400); Red Blood Count 3.96 X10*6/uL (4.20-5.50); Red Cell Distribution Width 13.7 % (11.0-16.0); White Blood Count 9.5 X10*3/uL (4.8-10.8)
[2022-04-14] MEDS: Acetaminophen 325 MG TABLET 975 MG PO (20:19)
[2022-04-14 20:29] LABS: Alanine Aminotransferase 11 U/L (0-31); Albumin Level 3.8 g/dL (3.5-5.0); Alkaline Phosphatase 70 U/L (39-117); Anion Gap 15 (12-20); Aspartate Amino Transferase 12 U/L (5-31); Bilirubin Direct < 0.2 mg/dL (0.0-0.5); Bilirubin Total 0.3 mg/dL (0.0-1.0); Blood Urea Nitrogen 13 mg/dL (9-16); Calcium 9.7 mg/dL (8.4-10.2); Carbon Dioxide 25 mmol/L (22-29); Chloride 101 mmol/L (96-108); Creatinine Clr Calc Pharmacy 42.5; Estimated Glomerular Filt Rate 59; Glucose Random 180 mg/dL (60-115); Lipase 27 U/L (8-78); Potassium 4.5 mmol/L (3.3-5.1); Sodium 136 mmol/L (135-145); Total Protein 6.3 g/dL (6.5-8.0)
[2022-04-14 20:36] LABS: INTERNATIONAL NORM RATIO 1.3 (0.9-1.1); Prothrombin Time 14.7 SEC (10.0-13.1)
[2022-04-14 20:38] LABS: D Dimer High Sensitivity 233 NG/ML
[2022-04-14 20:39] LABS: Partial Thromboplastin Time 36.4 SEC (26.0-36.4)
[2022-04-14 20:40] LABS: Troponin-I High Sensitivity < 3.5 ng/L (<3.5-17.0)
[2022-04-14 20:58] LABS: Influenza A PCR NEGATIVE (Negative); Influenza B PCR NEGATIVE (Negative); Resp Syncy Virus RNA Qual PCR NEGATIVE (Negative); SARS COV2 PCR INHOUSE NEGATIVE (Negative)
[2022-04-14] MEDS: iohexoL 350 MG/ML 100 ML INFUS..BTL IV (21:08)
[2022-04-14 22:28] VITALS: BP 131/49; PULSE 55; RESP 12; O2SAT 97
[2022-04-14] MEDS: Morphine Sulfate 2 MG/ML CARTRIDGE IVPUSH (22:31)
--- NOTE | 2022-04-14 22:46 | PC.NURSE ---
Pt medicated as ordered. IV line removed. Pt tolerated well. Pt being discharged back to [facility], returning via EMS. Report given to BRYSON Avendano
== END 2022-04-14 22:48 | disposition home or self-care (01) ==
PROVIDERS: Emergency Provider Emergency Medicine Emergency Medical Services
DX: R07.9 Chest pain, unspecified (principal); R06.02 Shortness of breath; Z20.822 Contact with and (suspected) exposure to COVID-19; Z20.828 Contact with and (suspected) exposure to other viral communicable diseases; E11.9 Type 2 diabetes mellitus without complications; I10 Essential (primary) hypertension; E78.5 Hyperlipidemia, unspecified; Z86.711 Personal history of pulmonary embolism; Z79.01 Long term (current) use of anticoagulants
CPT/HCPCS: 0241U; 36415; 71275; 80053; 82248; 83690; 84484; 85027; 85379; 85610; 85730; 93005; 96372; 99284; J2270; Q9967

== ENCOUNTER 2023-09-03 14:23 | Emergency (ER) | payer MEDICARE, MEDICAID, SELFPAY ==
--- NOTE | 2023-09-03 | ECG_ITS ---
Test Reason : DIZINESS Blood Pressure : / mmHG Vent. Rate : 061 BPM Atrial Rate : 061 BPM P-R Int : 262 ms QRS Dur : 084 ms QT Int : 448 ms P-R-T Axes : 029 -46 000 degrees QTc Int : 450 ms Sinus rhythm with sinus arrhythmia with 1st degree A-V block Left axis deviation Minimal voltage criteria for LVH, may be normal variant ( R in aVL ) Inferior infarct (cited on or before 14-APR-2022) Possible Anterior infarct (cited on or before 14-APR-2022) Abnormal ECG When compared with ECG of 14-APR-2022 19:41, Questionable change in initial forces of Inferior leads Referred By: Generic ED Physician Electronically Signed By:CHELO MAN MD
--- NOTE | ~2023-09-03 | CT_ITS ---
EXAMINATION: CT HIP WITHOUT CONTRAST, LEFT CLINICAL INFORMATION: Left pelvic pain status post fall COMPARISON: None available. TECHNIQUE: Multidetector volumetric imaging was obtained through the left hip without contrast material. Multiplanar reformatted images were submitted in coronal and sagittal planes. This CT examination was performed using dose optimization techniques as appropriate, variously including the following: *Automated exposure control *Adjustment of mA and/or kV according to patient size (this includes techniques or standardized protocols for targeted exams where dose is matched to indication/reason for exam; i.e. extremities or head) *Use of iterative reconstruction technique DLP: 1610 mGy-cm FINDINGS: No appreciable fracture or malalignment at the left hip. Proximal femur is intact. Bones are osteopenic. Mild osteoarthritis in the left hip and moderate osteoarthritis the pubic symphysis. There is mild/moderate fatty atrophy of the left pelvic musculature including the iliopsoas and gluteus minimus. No fluid collections. Trace joint effusion. Diverticulosis is present in the sigmoid colon. No acute intrapelvic findings. CT/CT hip LT wo IV con IMPRESSION: 1. No acute fracture or malalignment at the left hip. 2. Mild osteoarthritis in the left hip and moderate osteoarthritis in the pubic symphysis.
--- NOTE | ~2023-09-03 | CT_ITS ---
EXAMINATION: CT HEAD WITHOUT CONTRAST CT CERVICAL SPINE WITHOUT CONTRAST CLINICAL INFORMATION: Fall, dizziness. COMPARISON: CTA head and neck 01/12/2022. TECHNIQUE: Contiguous axial imaging was performed from the skull base to vertex without intravenous administration of contrast. Contiguous axial imaging was performed from the upper chest through the skull base without intravenous administration of contrast. Coronal and sagittal reformats were obtained at the acquisition workstation. This CT examination was performed using dose optimization techniques as appropriate, variously including the following: *Automated exposure control *Adjustment of mA and/or kV according to patient size (this includes techniques or standardized protocols for targeted exams where dose is matched to indication/reason for exam; i.e. extremities or head) *Use of iterative reconstruction technique DLP: 684 and 336 mGy-cm FINDINGS: Head: There is no evidence of acute intracranial hemorrhage or edematous territorial infarction. Scattered hypoattenuation in the periventricular and deep white matter are consistent with moderate microangiopathy. Cheung-white matter differentiation is preserved. Proportional prominence of the ventricles and sulcal spaces. No evidence for obstructive hydrocephalus. No abnormal mass effect or midline shift. No extra-axial fluid collections. No acute soft tissue or osseous abnormalities. The mastoid air cells and paranasal sinuses are clear. Cervical Spine: Evaluation is limited by motion. The atlantooccipital and atlantoaxial articulations remain well aligned. No evidence of acute compression deformity or subluxation. [id number] multilevel cervical spondylosis leading to various degrees of neural foraminal encroachment. There is no prevertebral soft tissue swelling. Cervical soft tissues are normal in appearance. The lung apices demonstrate no abnormalities. CT/CT cervical spine wo IV con IMPRESSION: 1. No acute intracranial pathology. 2. Evaluation of the cervical spine is limited by motion. However, accounting for these limitations, no acute cervical spinal fractures or malalignment are identified.
[2023-09-03 14:58] VITALS: BP 121/40; BP 130/62; PULSE 62; PULSE 89; RESP 16; TEMP 37; O2SAT 99; BMI 28.6
[2023-09-03 16:18] LABS: MANUAL DIFF FLAG NO
[2023-09-03 16:21] LABS: Basophils Absolute Auto 0.1 X10*3/uL (0.0-0.2); Basophils Percent Auto 0.6 % (0-2); Eosinophils Absolute Auto 0.1 X10*3/uL (0.0-0.4); Eosinophils Percent Auto 0.9 % (0-4); Hematocrit 36.8 % (37.0-47.0); Hemoglobin 12.5 g/dl (12.0-16.0); Imm Gran Abs Auto 0.08 X10*3/uL (0.00-0.03); Imm Gran Pct Auto 0.7 % (0.0-0.4); Lymphocytes Absolute Auto 2.4 X10*3/uL (1.2-4.9); Lymphocytes Percent Auto 22.2 % (20-40); Mean Corpuscular Hemoglobin 28.7 pg (27.0-33.0); Mean Corpuscular Volume 84.6 fL (80.0-98.0); Mean Platelet Volume 8.1 fL (9.4-12.3); Monocytes Absolute Auto 0.8 X10*3/uL (0.1-1.2); Monocytes Percent Auto 7.7 % (2-11); Neutrophils Absolute Auto 7.4 x10*3/uL (2.0-8.3); Neutrophils Percent Auto 67.9 % (45-73); Platelet Count 277 X10*3/uL (160-400); Red Blood Count 4.35 X10*6/uL (4.20-5.50); Red Cell Distribution Width 14.3 % (11.0-16.0); White Blood Count 10.9 X10*3/uL (4.8-10.8)
[2023-09-03 16:29] VITALS: BP 134/48; PULSE 62; RESP 18; TEMP 36.6; O2SAT 99
[2023-09-03 16:37] LABS: Alanine Aminotransferase 20 U/L (0-31); Alkaline Phosphatase 80 U/L (39-117); Anion Gap 16 (12-20); Aspartate Amino Transferase 17 U/L (5-31); Bilirubin Direct 0.2 mg/dL (0.0-0.5); Bilirubin Total 0.3 mg/dL (0.0-1.0); Blood Urea Nitrogen 10 mg/dL (9-16); Carbon Dioxide 22 mmol/L (22-29); Chloride 99 mmol/L (96-108); Creatinine Clr Calc Pharmacy 57.7; Estimated Glomerular Filt Rate > 60; Glucose Random 98 mg/dL (60-115); Lipase 21 U/L (8-78); Magnesium 1.9 mg/dL (1.6-2.6); Potassium 4.8 mmol/L (3.3-5.1); Sodium 132 mmol/L (135-145); Total Protein 6.6 g/dL (6.5-8.0)
[2023-09-03 16:46] LABS: Troponin-I High Sensitivity < 2.7 ng/L (<3.5-17.0)
[2023-09-03 17:06] LABS: Influenza A PCR NEGATIVE (Negative); Influenza B PCR NEGATIVE (Negative); Resp Syncy Virus RNA Qual PCR NEGATIVE (Negative); SARS COV2 PCR INHOUSE NEGATIVE (Negative)
--- NOTE | 2023-09-03 17:28 | ED_ITS ---
HPI - Fall General Chief Complaint: Fall Stated Complaint: FALL 2D AGO,LOW BACK PAIN PER EMS Time Seen by Provider: 09/03/23 15:14 Source: patient and RN notes reviewed Mode of arrival: ambulatory Limitations: no limitations History of Present Illness ED Provider: Joyce Burr PA-C HPI Narrative: This is a 83-year-old female, with a history of dementia, who presents emergency department from [facility], who presents emergency department with complaints of left hip pain status post fall which occurred today. Patient reports that she was unsure what had happened however states that she became dizzy and ultimately fell and landed on her buttocks. She states that the dizziness is a chronic symptom that she has had for many years and this is not new. She was on the ground for approximately 30 minutes able to get herself back up without assistance. She is uncertain what occurred during this fall, and is unsure how she sought medical care. She denies hitting her head or LOC. Denies any chest pain or shortness of breath. Denies any headaches, dizziness, blurred vision, abdominal pain, nausea, vomiting or diarrhea. She was able to walk on her left leg fall. She states that the pain starts in the left hip and radiates into her left groin. No other complaints or concerns at this time MD complaint: fall Onset (ago): hour(s) Fall from: standing Fall witnessed: no Loss of consciousness: none Prolonged down time: minute(s) Symptoms prior to fall: dizziness Quality: aching Associated symptoms (after fall): denies Related Data Previous Rx's ?Medication ?Instructions ?Recorded apixaban 5 mg (74 tabs) tablets in 5 mg PO BID #74 ea 10/11/21 a dose pack (Eliquis DVT-PE Treat 30D Start) cefuroxime axetil 250 mg tablet 250 mg PO BID 7 days #14 tabs 10/24/21 Allergies Allergy/AdvReac Type Severity Reaction Status Date / Time meperidine [From Demerol] Allergy Unknown Verified 09/03/23 15:05 Review of Systems 2 Review of Systems: Yes all other systems are reviewed and are negative Constitutional: Constitutional: Reports as per [facility] Past Medical History Medical History Alzheimer disease COVID-19 Depressed Diabetes High cholesterol HTN (hypertension) Pulmonary embolus Vascular dementia Social History Social History Patient Tobacco Use Status: Never used Tobacco Smoked in Last 30 Days: No Use of substances other than those prescribed or required for medical reasons: No Advance Directives: Yes Advance Directives on File: Yes Advance Directives Date on File: 07/30/21 Do you have a plan to hurt others: No Plan Physical Exam 2 Vital Signs: Vital Signs: Last Vital Signs Temp 98.3 F 09/03/23 20:55 Pulse 55 09/03/23 20:55 Resp 17 09/03/23 20:55 BP 125/77 09/03/23 20:55 Pulse Ox 96 09/03/23 20:55 O2 Del Method Room Air 09/03/23 20:55 BMI result Body Mass Index 28.6 Const: General: cooperative, comfortable and no acute distress O rientation/consciousness: patient oriented x3 Limitations: no limitations HEENT: Head: Yes normal to inspection, Yes normocephalic and Yes atraumatic Ears: hearing grossly normal bilaterally and TM's normal bilaterally General nose exam: Normal external nose present Face and sinus: Yes normal facial exam Mouth: Normal oral and palatal mucosa present, oropharynx normal and moist mucous membranes Throat: Yes posterior oropharynx normal Eyes: General: appearance normal, both eyes and all related structures E yelids: Yes eyelids normal Conjunctivae: conjunctivae normal Sclerae: s clerae normal Pupils: Equal, round and reactive pupils present EOM: EOMs intact bilaterally Neck: Neck: Yes normal visual inspection, Yes full ROM and Yes no lymphadenopathy Lymphatic: no lymphadenopathy noted Chest: Chest palpation & inspection: normal inspection of the chest Resp: Effort & Inspection: normal respiratory effort and able to speak in complete sentences Auscultation: clear to auscultation bilaterally, no crackles, no rales, no rhonchi and no wheezes Cardio: Rate: regular rate Rhythm: regular rhythm Heart sounds: S1 normal heart sound present and S2 normal heart sound present GI: Other: Abdomen is soft and nontender Inspection: Yes normal to inspection Back/Spine/Pelvis: Other: Tenderness palpation along the anterior left hip, no overlying deformity or swelling, does extend into the superior femur, no pain throughout rest of leg. No overlying or ecchymosis seen. Full range of motion of the hips. Strong DP pulse. Skin: General skin exam: no rashes or lesions noted Trauma: no lacerations or abrasions Wounds: no wounds Neuro: General: patient oriented x3 and moves all extremities Cranial nerves: Yes Equal, round and reactive pupils present Extrem: Other: Tenderness palpation along the anterior hip, no overlying skin changes, ecchymosis or hematoma noted, no erythema. General: Yes normal to inspection Right upper extremity: normal to inspection Left upper extremity: normal to inspection Right lower extremity: normal to inspection Left lower extremity: normal to inspection Course Reevaluation(s) Reevaluation #1: CT of the hip revealing no fracture or malalignment. 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 There is no fracture seen. CT head and C-spine revealed no acute fracture or acute process. Patient is currently at [facility] however given fall, she would benefit from getting a PT evaluation. At this time, patient is medically cleared and will need PT Case Management for safe dispo home. I discussed this with patient, however patient does not want to stay overnight. I spoke to [facility], nurse Pimentel who states that she does have a pending physical therapy consult on her record however has not had a physical therapy consult performed as of yet. I discussed with case management, Claribel. Will attempt to ambulate patient to see if she is steady on her feet. If she has not steady on her feet then she will need to stay here at [facility] for further evaluation Time: 17:41 Reevaluation #2: Urine returns, appears to be infected, patient started on cefuroxime. Patient able to ambulate with walker however would benefit from PT Case Management eval for safe disposition home as pt states that she does not have a walker she uses. She is at [facility], pending physical therapy consult but it is unclear when she would have physical therapy performed. Given that she is not safe to be discharged home at this time, will await PT Case Management eval for the morning. Time: 20:21 Medications Administered Generic Name Dose Route Start Last Admin Trade Name Freq PRN Reason Stop Dose Admin Cefuroxime Axetil 250 mg 09/03/23 21:00 09/03/23 22:08 Cefuroxime Axetil 250 Mg Tablet PO 250 mg BID HARSH Administration Medical Decision Making Medical Decision Making [facility] Narrative: This is a 83-year-old female, with a history of dementia, who presents emergency department from [facility] who complains of left pain status post mechanical fall which occurred prior to arrival. She states that she developed dizziness and caused her to fall. I spoke to [facility] and there was no witnessed fall, but wanted her to be evaluated given left hip pain, On arrival, patient mildly hypotensive 121/40, repeat 134/48, this appears to be at her baseline. She is alert, oriented, under no acute distress. She does have tenderness palpation along her anterior hip, states that pain radiates into her groin. Given pain, will obtain CT of the hip to rule out fracture. Also ordered CT head and C-spine as well as blood work and EKG. Plan: Labs, EKG, CT head, neck, CT hip Differential Diagnosis Differential Diagnoses: The differential diagnosis associated with the presentation includes Electrolyte derangement, hip fracture, contusion, sprain, rhabdomyolysis Admission/Observation Consideration of admission/observation: Escalation of care including admission/observation considered Escalation of care including admission/observation considered however given workup today not warranted at this time. Lab Data MDM Lab Attestation statement: I reviewed the patient's lab results. No leukocytosis, stable H&H, chemistry within normal limits, urine does appear to be infected with positive nitrites, large leuk esterases and greater than 50 wbc's. Negative viral swabs 09/03/23 16:07 09/03/23 16:07 Labs: Lab Results 09/03/23 09/03/23 09/03/23 Range/Units 16:07 18:42 19:14 WBC 10.9 H (4.8-10.8) X10*3/uL RBC 4.35 (4.20-5.50) X10*6/uL Hgb 12.5 (12.0-16.0) g/dl Hct 36.8 L (37.0-47.0) % MCV 84.6 (80.0-98.0) fL MCH 28.7 (27.0-33.0) pg MCHC 34.0 (31.0-35.0) g/dl RDW 14.3 (11.0-16.0) % Plt Count 277 (160-400) X10*3/uL MPV 8.1 L (9.4-12.3) fL Immature Gran % (Auto) 0.7 H (0.0-0.4) % Neut % (Auto) 67.9 (45-73) % Lymph % (Auto) 22.2 (20-40) % [place] % (Auto) 7.7 (2-11) % Eos % (Auto) 0.9 (0-4) % Baso % (Auto) 0.6 (0-2) % Lymph # (Auto) 2.4 (1.2-4.9) X10*3/uL [place] # (Auto) 0.8 (0.1-1.2) X10*3/uL Eos # (Auto) 0.1 (0.0-0.4) X10*3/uL Baso # (Auto) 0.1 (0.0-0.2) X10*3/uL Abs Immat Gran (auto) 0.08 H (0.00-0.03) X10*3/uL Absolute Neuts (auto) 7.4 (2.0-8.3) x10*3/uL Absolute Nucleated RBC 0.000 (0.0-0.012) X10*3/uL Nucleated RBC % (auto) 0.0 (0.0-0.2) /100WBC Sodium 132 L (135-145) mmol/L Potassium 4.8 (3.3-5.1) mmol/L Chloride 99 (96-108) mmol/L Carbon Dioxide 22 (22-29) mmol/L Anion Gap 16 (12-20) BUN 10 (9-16) mg/dL Creatinine 0.72 (0.5-1.4) mg/dL Estim Creat Clear Calc 57.7 Estimated GFR > 60 POC Glucose (60-115) mg/dL Random Glucose 98 (60-115) mg/dL Calcium 9.0 D (8.4-10.2) mg/dL Magnesium 1.9 (1.6-2.6) mg/dL Total Bilirubin 0.3 (0.0-1.0) mg/dL Direct Bilirubin 0.2 (0.0-0.5) mg/dL AST 17 (5-31) U/L ALT 20 (0-31) U/L Alkaline Phosphatase 80 (39-117) U/L Total Creatine Kinase 35 (26-140) U/L Troponin I High Sens < 2.7 < 2.7 (<3.5-17.0) ng/L Total Protein 6.6 (6.5-8.0) g/dL Albumin 4.0 (3.5-5.0) g/dL Lipase 21 (8-78) U/L Urine Color Yellow Urine Appearance Cloudy Urine pH >= 9.0 (5.0-9.0) Ur Specific [place] 1.015 (1.005-1.025) Urine Protein Trace (Neg-Trace) mg/dL Urine Glucose (UA) Negative (Negative) mg/dL Urine Ketones Negative (Negative) mg/dL Urine Blood Negative (Negative) Urine Nitrite Positive H (Negative) Ur Leukocyte Esterase Large (3+) H (Negative) Urine RBC 0-2 (0-2) /HPF Urine WBC >50 H (0-5) /HPF Ur Squamous Epith Cells 0-2 (0-2) /HPF Urine Bacteria 4+ (None Seen) Hyaline Casts 0-2 (0-2) /LPF Influenza Type A (PCR) NEGATIVE (Negative) Influenza Type B (PCR) NEGATIVE (Negative) RSV RNA Qual (PCR) NEGATIVE (Negative) SARS-CoV-2 RNA (RT-PCR) NEGATIVE (Negative) 09/03/23 Range/Units 22:37 WBC (4.8-10.8) X10*3/uL RBC (4.20-5.50) X10*6/uL Hgb (12.0-16.0) g/dl Hct (37.0-47.0) % MCV (80.0-98.0) fL MCH (27.0-33.0) pg MCHC (31.0-35.0) g/dl RDW (11.0-16.0) % Plt Count (160-400) X10*3/uL MPV (9.4-12.3) fL Immature Gran % (Auto) (0.0-0.4) % Neut % (Auto) (45-73) % Lymph % (Auto) (20-40) % [place] % (Auto) (2-11) % Eos % (Auto) (0-4) % Baso % (Auto) (0-2) % Lymph # (Auto) (1.2-4.9) X10*3/uL [place] # (Auto) (0.1-1.2) X10*3/uL Eos # (Auto) (0.0-0.4) X10*3/uL Baso # (Auto) (0.0-0.2) X10*3/uL Abs Immat Gran (auto) (0.00-0.03) X10*3/uL Absolute Neuts (auto) (2.0-8.3) x10*3/uL Absolute Nucleated RBC (0.0-0.012) X10*3/uL Nucleated RBC % (auto) (0.0-0.2) /100WBC Sodium (135-145) mmol/L Potassium (3.3-5.1) mmol/L Chloride (96-108) mmol/L Carbon Dioxide (22-29) mmol/L Anion Gap (12-20) BUN (9-16) mg/dL Creatinine (0.5-1.4) mg/dL Estim Creat Clear Calc Estimated GFR POC Glucose 169 H (60-115) mg/dL Random Glucose (60-115) mg/dL Calcium (8.4-10.2) mg/dL Magnesium (1.6-2.6) mg/dL Total Bilirubin (0.0-1.0) mg/dL Direct Bilirubin (0.0-0.5) mg/dL AST (5-31) U/L ALT (0-31) U/L Alkaline Phosphatase (39-117) U/L Total Creatine Kinase (26-140) U/L Troponin I High Sens (<3.5-17.0) ng/L Total Protein (6.5-8.0) g/dL Albumin (3.5-5.0) g/dL Lipase (8-78) U/L Urine Color Urine Appearance Urine pH (5.0-9.0) Ur Specific [place] (1.005-1.025) Urine Protein (Neg-Trace) mg/dL Urine Glucose (UA) (Negative) mg/dL Urine Ketones (Negative) mg/dL Urine Blood (Negative) Urine Nitrite (Negative) Ur Leukocyte Esterase (Negative) Urine RBC (0-2) /HPF Urine WBC (0-5) /HPF Ur Squamous Epith Cells (0-2) /HPF Urine Bacteria (None Seen) Hyaline Casts (0-2) /LPF Influenza Type A (PCR) (Negative) Influenza Type B (PCR) (Negative) RSV RNA Qual (PCR) (Negative) SARS-CoV-2 RNA (RT-PCR) (Negative) Independent Interpretation I performed an independent interpretation of an: EKG Interpretation: EKG sinus rhythm with sinus arrhythmia with a 1st degree AV block, at a ventricular rate of 61 beats per minute, no ST elevation or depression. Radiology Impression Discussion of test interpretation with radiology: I have reviewed the radiologist's reading. Radiologist Impression: FINDINGS: No appreciable fracture or malalignment at the left hip. Proximal femur is intact. Bones are osteopenic. Mild osteoarthritis in the left hip and moderate osteoarthritis the pubic symphysis. There is mild/moderate fatty atrophy of the left pelvic musculature including the iliopsoas and gluteus minimus. No fluid collections. Trace joint effusion. Diverticulosis is present in the sigmoid colon. No acute intrapelvic findings. CT/CT hip LT wo IV con IMPRESSION: 1. No acute fracture or malalignment at the left hip. 2. Mild osteoarthritis in the left hip and moderate osteoarthritis in the pubic symphysis. CT/CT head/brain wo IV con IMPRESSION: 1. No acute intracranial pathology. 2. Evaluation of the cervical spine is limited by motion. However, accounting for these limitations, no acute cervical spinal fractures or malalignment are identified. Dictated By: Madai Rajan Independent Historian Clinical information obtained from an independent historian. History obtained from or confirmed by: EMS Discharge Plan Discharge Clinical Impression: Fall, Urinary tract infection Patient Disposition: Still a Patient Prescriptions: No Action cefuroxime axetil 250 mg tablet 250 mg PO BID 7 Days Qty: 14 0RF Eliquis DVT-PE Treat 30D Start 5 mg (74 tabs) tablets,dose pack 5 mg PO BID Qty: 74 0RF Print Language: Zimbabwean
[2023-09-03 19:12] LABS: Troponin-I High Sensitivity < 2.7 ng/L (<3.5-17.0)
[2023-09-03 19:25] LABS: Appearance Urine Cloudy; Color Urine Yellow; Glucose Urine UA Negative (Negative); Leukocyte Esterase Urine Large (3+) (Negative); Nitrite Urine Positive (Negative); PH >= 9.0 (5.0-9.0); Specific Gravity - Urine 1.015 (1.005-1.025); UMIC TRIGGER UACC YES; Urine Blood Negative (Negative); Urine Ketones Negative (Negative); Urine Protein Trace mg/dL (Neg-Trace)
[2023-09-03 19:30] LABS: Bacteria Urine 4+ (None Seen); Hyaline Casts Urine 0-2 /LPF (0-2); RBC Urine 0-2 /HPF (0-2); Squamous Epithelial Cell Urine 0-2 /HPF (0-2); UACC Culture Trigger YES; WBC Urine >50 /HPF (0-5)
[2023-09-03 20:55] VITALS: BP 125/77; PULSE 55; RESP 17; TEMP 36.8; O2SAT 96
--- NOTE | 2023-09-03 21:01 | MHC.CM.ED ---
CM met with patient at the request of Joyce PATEL. Pt is alert, orientated to place and does remember falling at the facility. Pt is at times vague and unsure of dates. She is very pleasant and talkative. Pt knows she lives at [facility], but thinks she lives in [facility]. Pt is a resident of [facility]. She uses no DME. She states she is independent with ADL's and eats in the cafeteria with her friends. HCP is on file. Pt tells me Vikas Maxwell (HCP) is her brother and he lives in [place], [place]. She tells CM she has 3 sons, but her middle son was shot and murdered when he was 21 years old. She is a . Per Joyce PATEL, [facility] has a PT consult ordered, but it has not been completed. Pt will stay overnight for PT assessment in the am. Pt also has a UTI. Return referral made for [facility] . Expect patient will return to [facility] in the morning pending PT evaluation. CM will follow for d/c planning.
[2023-09-03] MEDS: cefuroxime axetiL 250 MG TABLET PO (22:08)
[2023-09-03 22:42] LABS: Glucose, Whole Blood 169 mg/dL (60-115)
--- NOTE | 2023-09-04 05:51 | PC.NURSE ---
[facility] with [facility]
[2023-09-04 05:57] VITALS: BP 129/58; PULSE 64; RESP 16; TEMP 36.9; O2SAT 97
--- NOTE | 2023-09-04 06:39 | PC.NURSE ---
Called [facility] and got list of meds via phone
[2023-09-04] MEDS: cefuroxime axetiL 250 MG TABLET PO (07:27)
[2023-09-04] MEDS: Acetaminophen 325 MG TABLET 650 MG PO (07:27)
--- NOTE | 2023-09-04 07:29 | PC.NURSE ---
Alert and responsive, seen by PT, medicated per mar for complaints of a headache. Repositioned in bed
[2023-09-04 07:30] VITALS: BP 129/58; PULSE 64; O2SAT 97
--- NOTE | 2023-09-04 11:33 | MHC.CM.PN ---
Addendum entered by Millie Mckinnon 09/04/23 12:02: CM SPOKE TO PTS BROTHER/HCP, LULI MEMBRENO [phone], HE HAS BEEN UPDATED AND IS AWARE PT WILL RETURN TO [facility] TODAY WITH A PLAN FOR REHAB SERVICES TO BE PROVIDED Original Note: PT WILL DC BACK TO [facility] AT 1300 HOURS TODAY VIA [employer]
--- NOTE | 2023-09-04 12:40 | PC.NURSE ---
Multiple attempts to call report to [facility] unsuccessful
== END 2023-09-04 14:28 | disposition home or self-care (01) ==
PROVIDERS: Physician Assistant Medical; Emergency Provider Emergency Medicine; PCP Emergency Medicine
DX: S39.012A Strain of muscle, fascia and tendon of lower back, initial encounter (principal); S79.912A Unspecified injury of left hip, initial encounter; N39.0 Urinary tract infection, site not specified; I49.8 Other specified cardiac arrhythmias; M25.552 Pain in left hip; M79.605 Pain in left leg; R42 Dizziness and giddiness; I44.0 Atrioventricular block, first degree; R26.2 Difficulty in walking, not elsewhere classified; W01.10XA Fall on same level from slipping, tripping and stumbling with subsequent striking against unspecified object, initial encounter; Y93.9 Activity, unspecified; Y92.9 Unspecified place or not applicable; R50.9 Fever, unspecified; Y99.8 Other external cause status; Z79.899 Other long term (current) drug therapy; Z20.822 Contact with and (suspected) exposure to COVID-19; Z79.01 Long term (current) use of anticoagulants
CPT/HCPCS: 0241U; 36415; 70450; 72125; 73700; 80048; 80076; 81001; 82550; 82947; 83690; 83735; 84484; 85025; 87086; 87088; 87186; 93005; 97161; 99285

== ENCOUNTER → 2023-09-03 15:07 | Outpatient (BNV) | payer MEDICARE, MEDICAID, SELFPAY | PROVIDERS: Emergency Provider Emergency Medicine; PCP Emergency Medicine; Visit Provider Internal Medicine Cardiovascular Disease | DX: R94.31 Abnormal electrocardiogram [ECG] [EKG] (principal) | CPT/HCPCS: 93010 ==

== ENCOUNTER 2023-10-22 09:09 | Outpatient (REF) | payer MEDICARE, MEDICAID, SELFPAY ==
--- NOTE | ~2023-10-22 | XR_ITS ---
EXAMINATION: XR HAND, LEFT CLINICAL INFORMATION: Pain in left hand COMPARISON: None available. TECHNIQUE: PA, lateral, and oblique views of the left hand. FINDINGS: Examination is technically limited due to patient's inability to cooperate and open the fist. Carpometacarpal joint is mildly narrowed. There are degenerative changes at the first metacarpophalangeal joint no evidence of fractures. Metacarpophalangeal joints and phalanges are not possible to evaluate due to position the second finger reveals mild changes of osteoarthritis in the interphalangeal joints the rest of finger is are obscured XR/XR hand LT min 3V IMPRESSION: Technically limited study, osteoarthritis in visualized areas of left hand
== END 2023-10-22 09:10 | disposition home or self-care (01) ==
LOC: HO.HOSX 09:09
DX: M24.542 Contracture, left hand (principal)
CPT/HCPCS: 73130; 99202

== ENCOUNTER 2023-10-22 12:35 | Outpatient (AMB) | payer MEDICARE, MEDICAID, SELFPAY ==
[2023-10-22 12:49] VITALS: BMI 28.5
--- NOTE | 2023-10-22 12:49 | A.OFFVIS_ITS ---
Vital Signs 10/22/23 12:49 Height 5 ft 3 in Weight 161 lb BMI 28.5 Intake Visit Reasons: [employer]- LT hip pain Intake Note: Ashley is a 83 yo right hand dominant female who presents today with a hospice social worker from [facility] for ED follow up with complaints of left 3rd and 4th digit pain s/p unwitnessed fall, DOI 09/04/23. During today's visit, patient does not recall falling. Denies numbness or tingling but does report locking on finger. Allergies meperidine [From Demerol] Allergy (Verified 10/22/23 13:13) Unknown HPI HPI [employer]- LT hip pain: Details: Patient is an 83-year-old female with past medical history significant for dementia who presents for evaluation of left hand contracture and pain patient reports that her left middle and ring fingers are contracted. Patient reports that this has been going on for multiple years, but has worsened over that time. The patient reports that she soaks her hand in warm water, and that this alleviates discomfort significantly along with allowing slightly increased range of motion of these digits. The patient inquires about any potential treatment options available to her. Patient reports no other acute concerns complaints at this time. [facility] Medical History Alzheimer disease COVID-19 Depressed Diabetes High cholesterol HTN (hypertension) Pulmonary embolus Vascular dementia Social History Patient Tobacco Use Status: Never used Tobacco Advance Directives Date on File: 07/30/21 Review of Systems Const All systems reviewed & are unremarkable except as noted in HPI and below Physical Exam Vital Signs: BMI result Body Mass Index 28.5 Extrem Other: Patient is alert, oriented, and in no acute distress. Neuro: Median, ulnar, radial nerves motor and sensory intact and sensation is normal to the tips of all digits. Vascular: Cap refill brisk Pain: Patient reports pain with attempted passive extension of the left middle and ring fingers ROM: Patient has very limited active and passive range of motion of the left middle finger, and is only able to partially actively extend the middle finger approximately 2 cm from palm Patient has no active range of motion of the left ring finger at this time, and is only able to passively extend approximately 1 cm off of the palm with significant pain Skin: No lacerations or abrasions. General: No ecchymosis, erythema, or evidence of infection. No evidence of Dupuytren's cord noted Psych: Appears grossly normal Affect normal Attitude cooperative Results Reviewed Results Reviewed: X-rays obtained in the office today and independently reviewed by me, Golden Anthony PA-C, demonstrate moderate to severe arthritic changes throughout the left hand, particularly the MCP and PIP joints of the left middle and ring fingers. 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 Darden for evaluation, due to severity of symptom load Patient will follow-up in office with Dr. 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
== END 2023-10-22 13:56 | disposition home or self-care (01) ==
PROVIDERS: PCP Emergency Medicine
DX: M24.542 Contracture, left hand (principal)
CPT/HCPCS: 99203

== ENCOUNTER 2023-11-18 09:25 | Outpatient (AMB) | payer MEDICARE, MEDICAID, SELFPAY ==
--- NOTE | 2023-11-18 10:18 | A.OFFVIS_ITS ---
Vital Signs 11/18/23 10:21 Height 5 ft 3 in Weight 161 lb BMI 28.5 Intake Visit Reasons: OV- LT hand pain Intake Note: Ashley is a 83 yo right hand dominant female who presents today with a senior market research analyst from [facility] with complaints of left 3rd and 4th digit pain s/p unwitnessed fall, DOI 09/04/23. Patient reports she only feels pain when she moves it but according to her this is her baseline. Per report brought in from the rehab, she has been doing occupational therapy and stretches which have been helpful. Allergies meperidine [From Demerol] Allergy (Verified 11/18/23 10:19) Unknown HPI HPI OV- LT hand pain: Details: Ashley is an 83 year old right hand dominant woman, with a Hx of Dementia, seen today with a senior market research analyst from [facility], with complaints of left middle & ring finger contractures. She is seen today in a wheelchair. She complains of pain in her left hand, primarily in her middle & ring fingers, with her fingers being severely contracted towards her palm. She says this has been present for ~4 years now, and she denies any known injury. She has been performing OT hand therapy at her rehab facility She says she struggles to keep her hand clean, but does work at it. She has no complaints of right hand pain or contractures. She is on Eliquis, but is unsure why. She has a Hx of pulmonary embolus, Alzheimers, vascular dementia, and Diabetes [facility] Medical History (Updated 11/18/23 @ 10:54 by Noman Richards) Pulmonary embolus Depressed High cholesterol Alzheimer disease Diabetes HTN (hypertension) Vascular dementia COVID-19 Social History Patient Tobacco Use Status: Never used Tobacco Advance Directives Date on File: 07/30/21 Review of Systems Const All systems reviewed & are unremarkable except as noted in HPI and below Physical Exam Vital Signs: BMI result Body Mass Index 28.5 Const General: cooperative, healthy appearing and no acute distress Orientation/consciousness: patient oriented x3 HEENT Head: Yes normocephalic and Yes atraumatic Eyes EOM: EOMs intact bilaterally Resp Effort & Inspection: normal respiratory effort and able to speak in complete sentences Cardio Jugular venous distension: no JVD Skin General skin exam: turgor normal Rashes: no rashes Neuro General: patient oriented x3 Extrem Other: Evaluation of Left Upper Extremity: The patient is alert, oriented, and in no acute distress Neuro: Median, Ulnar, Radial nerves motor and sensory intact and sensation is normal to the tips of all digits Vascular: Cap refill brisk ROM: She can bring her fingers closed to a fist, and extend her thumb, index, and small fingers and partially extend the middle finger Her ring finger is stuck fully flexed into her palm, actually creating an indentation in the palm. With gentle examination, I could bring her ring finger tip from fully flexed against her palm to ~2-3cm She is still stuck with MCP & PIP joint flexion, about 90 degrees and 90 degrees. Is it hard to tell if this is a severely locked trigger finger, and she is not able to tolerate any further manipulation. Skin: No lacerations or abrasions. General: No Ecchymosis. No Erythema or evidence of infection. Radiographs: 3 views of the left hand were taken and viewed by me today in clinic. They show no fractures or dislocations. 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 Left ring finger flexion contracture Question of possible locked trigger finger I educated her about this condition. Of note she has Alzheimers and resides in [facility]. She was able to participate in her care today, but is seen with a senior market research analyst from this facility. The tendon does not know how long the finger has been flexed, and we are not sure if it has actually been kept flexed for 4 years or not. I discussed operative and non-operative treatment options I recommend attempting a closed manipulation under general anesthesia or sedation, to see if this can be brought into extension. If this can be done then there may be a possible a1 twin release. The patient is in agreement and would like to proceed The risks and benefits of operative treatment were discussed with the patient and the patient wishes to proceed with surgery. These risks include, but are not limited to risk of damage to blood vessels, nerves, tendons, infection, recurrence, incomplete relief of preoperative symptoms, persistent pain, possible need for further surgery and the risks associated with regional blocks and anesthesia. The plan is to take the patient to the operating room sometime in the next few weeks for the following procedures: 1. Left ring finger BATSHEVA, under general 2. Possible left ring finger trigger release, under general All of the preoperative paperwork including the consent was reviewed today. All the patient's questions were answered. The patient understands that they will be contacted by our pull over machine operator soon to schedule this procedure She denies asthma, heart, kidney issues She has Diabetes & a hx of a pulmonary embolus. She is on Metformin & Eliquis She will also need somebody who can provide consent for her if she can not provide from sent for herself. Scribed for Shayla Darden MD by Noman Richards, medical billing specialist, on 11/18/23 at 10:50 AM, EST. 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
[2023-11-18 10:21] VITALS: BMI 28.5
== END 2023-11-18 11:19 | disposition home or self-care (01) ==
PROVIDERS: PCP Emergency Medicine; Visit Provider Orthopaedic Surgery
DX: M24.542 Contracture, left hand (principal); G30.9 Alzheimer's disease, unspecified; F02.80 Dementia in other diseases classified elsewhere, unspecified severity, without behavioral disturbance, psychotic disturbance, mood disturbance, and anxiety
CPT/HCPCS: 99214

== ENCOUNTER → 2023-11-18 09:25 | Outpatient (BNVA) | payer MEDICARE, MEDICAID, SELFPAY | PROVIDERS: PCP Emergency Medicine; Visit Provider Orthopaedic Surgery | DX: M24.542 Contracture, left hand (principal); G30.9 Alzheimer's disease, unspecified; F02.80 Dementia in other diseases classified elsewhere, unspecified severity, without behavioral disturbance, psychotic disturbance, mood disturbance, and anxiety | CPT/HCPCS: 99212 ==

== ENCOUNTER 2023-11-26 00:05 | Emergency (ER) | payer MEDICARE, MEDICAID, SELFPAY ==
--- NOTE | ~2023-11-26 | XR_ITS ---
EXAMINATION: XR CHEST CLINICAL INFORMATION: Leg edema and cough COMPARISON: CT chest 04/14/2022 Chest radiograph 01/11/2022 TECHNIQUE: Frontal view of the chest was obtained in a lordotic projection. FINDINGS: No significant abnormality is noted involving the heart, lungs or mediastinum. Heart size within normal limits and there is no evidence of CHF. A right total shoulder prosthesis is present. Severe degenerative changes are present in the left shoulder. XR/XR chest 1V IMPRESSION: No acute intrathoracic disease. Electronically signed by: Abhishek De Jesus MD 11/26/2023 01:30 AM EDT
[2023-11-26 00:08] VITALS: BP 130/92; PULSE 66; O2SAT 97
[2023-11-26 00:16] VITALS: BP 130/92; PULSE 66; O2SAT 97
[2023-11-26 00:20] VITALS: BP 135/57; PULSE 65; RESP 14; TEMP 36.5; O2SAT 98; BMI 23.9
[2023-11-26 00:36] VITALS: BP 135/57; PULSE 65; RESP 14; TEMP 36.5; O2SAT 98
[2023-11-26 02:11] LABS: Anion Gap 14 (12-20); Blood Urea Nitrogen 11 mg/dL (9-16); Calcium 9.1 mg/dL (8.4-10.2); Carbon Dioxide 19 mmol/L (22-29); Chloride 104 mmol/L (96-108); Creatinine Clr Calc Pharmacy 49.8; Estimated Glomerular Filt Rate > 60; Glucose Random 140 mg/dL (60-115); Potassium 4.5 mmol/L (3.3-5.1); Sodium 132 mmol/L (135-145)
[2023-11-26 02:43] LABS: MANUAL DIFF FLAG NO
[2023-11-26 02:44] LABS: Basophils Absolute Auto 0.1 X10*3/uL (0.0-0.2); Basophils Percent Auto 0.5 % (0-2); Eosinophils Absolute Auto 0.2 X10*3/uL (0.0-0.4); Eosinophils Percent Auto 2.1 % (0-4); Hematocrit 32.9 % (37.0-47.0); Hemoglobin 11.2 g/dl (12.0-16.0); Lymphocytes Absolute Auto 2.5 X10*3/uL (1.2-4.9); Lymphocytes Percent Auto 26.5 % (20-40); Mean Corpuscular Hemoglobin 29.1 pg (27.0-33.0); Mean Corpuscular Volume 85.5 fL (80.0-98.0); Monocytes Percent Auto 10.6 % (2-11); Neutrophils Absolute Auto 5.7 x10*3/uL (2.0-8.3); Neutrophils Percent Auto 59.3 % (45-73); Platelet Count 247 X10*3/uL (160-400); Red Blood Count 3.85 X10*6/uL (4.20-5.50); Red Cell Distribution Width 14.6 % (11.0-16.0); White Blood Count 9.6 X10*3/uL (4.8-10.8)
[2023-11-26 03:04] LABS: B Type Natriuretic Peptide 241 pg/mL (<100)
--- NOTE | 2023-11-26 03:13 | ED.EXTPRO ---
HPI - Extremity Problem General Chief complaint: Extremity Problem Stated complaint: BILATERAL LEG EDEMA Time Seen by Provider: 11/26/23 00:13 Source: EMS Mode of arrival: EMS Limitations: other (dementia) History of Present Illness ED Provider: Dr. Sahni HPI Narrative: Nurses at [facility] saw her legs were swollen and were concerned about cellulitis, No fever, no shortness of breath, no warmth MD Complaint: extremity swelling Location: left and right Related Data Home Medications ?Medication ?Instructions ?Recorded ?Confirmed apixaban 2.5 mg tablet (Eliquis) 2.5 mg PO BID 09/04/23 09/04/23 cholecalciferol (vitamin D3) 50 2,000 unit 09/04/23 mcg (2,000 unit) capsule (Vitamin D3) donepezil 10 mg tablet 10 mg 09/04/23 loratadine 10 mg tablet 10 mg PO DAILY 09/04/23 09/04/23 metformin 500 mg tablet 500 mg PO BID 09/04/23 09/04/23 sertraline 50 mg tablet (Zoloft) 50 mg PO DAILY 09/04/23 09/04/23 tolterodine 2 mg capsule,extended 2 mg PO DAILY 09/04/23 09/04/23 release 24 hr Previous Rx's ?Medication ?Instructions ?Recorded cefuroxime axetil 250 mg tablet 250 mg PO BID 6 days #12 tabs 09/04/23 Allergies Allergy/AdvReac Type Severity Reaction Status Date / Time meperidine [From Demerol] Allergy Unknown Verified 11/26/23 00:24 Review of Systems Review of Systems: Yes Unobtainable due to mental status Neurologic: Denies Sensory deficit (Neuro) [facility] Past Medical History Medical History Pulmonary embolus Depressed High cholesterol Alzheimer disease Diabetes HTN (hypertension) Vascular dementia COVID-19 Social History Social History Patient Tobacco Use Status: Never used Tobacco Smoked in Last 30 Days: No Use of substances other than those prescribed or required for medical reasons: No Advance Directives: Yes Advance Directives on File: Yes Advance Directives Date on File: 07/30/21 Do you have a plan to hurt others: No Plan Physical Exam Vital Signs: Vital Signs: Last Vital Signs Temp 97.7 F 11/26/23 00:36 Pulse 65 11/26/23 00:36 Resp 14 11/26/23 00:36 BP 135/57 L 11/26/23 00:36 Pulse Ox 98 11/26/23 00:36 O2 Del Method Room Air 11/26/23 00:36 BMI result Body Mass Index 23.9 Const: Nutritional Appearance: average body habitus Limitations: other limitations (dementia) HEENT: Head: Yes normal to inspection Ears: external ears normal General nose exam: Normal external nose present Mouth: Normal oral and palatal mucosa present and oropharynx normal Throat: Yes posterior oropharynx normal Eyes: General: appearance normal, both eyes and all related structures Neck: Other: supple Neck: Yes normal visual inspection Chest: Chest palpation & inspection: normal inspection of the chest Resp: Auscultation: clear to auscultation bilaterally Cardio: Jugular venous distension: no JVD Rate: regular rate Rhythm: regular rhythm Heart sounds: S1 normal heart sound present and S2 normal heart sound present GI: Inspection: Yes normal to inspection Palpation (GI): Soft to palpation, nontender and No hepatosplenomegaly present Auscultation: normal bowel sounds : General: Yes no CVA tenderness Back/Spine/Pelvis: Back: no CVA tenderness Skin: General skin exam: no rashes or lesions noted Neuro: Cranial nerves: Yes CN's II-XII intact bilaterally Motor exam (neuro): 5/5 motor strength present throughout Sensory Exam: No Sensory deficit (Neuro) Extrem: Other: extremities with edema, slight redness due to fluid dependence, no evidence of cellulitis Psych: Other: dementia with slight agitation Course Reevaluation(s) Reevaluation #1: no evidence of cellulitis or chf will dc home with follow up Time: 03:19 Medical Decision Making Differential Diagnosis Differential Diagnoses: The differential diagnosis associated with the presentation includes (cellulitis, chf, peripheral edema) Admission/Observation Consideration of admission/observation: Escalation of care including admission/observation considered (upon arrival patient considered for admission) Lab Data 11/26/23 02:39 11/26/23 01:51 Labs: Lab Results 11/26/23 11/26/23 Range/Units 01:51 02:39 WBC 9.6 (4.8-10.8) X10*3/uL RBC 3.85 L (4.20-5.50) X10*6/uL Hgb 11.2 L (12.0-16.0) g/dl Hct 32.9 L (37.0-47.0) % MCV 85.5 (80.0-98.0) fL MCH 29.1 (27.0-33.0) pg MCHC 34.0 (31.0-35.0) g/dl RDW 14.6 (11.0-16.0) % Plt Count 247 (160-400) X10*3/uL MPV 8.0 L (9.4-12.3) fL Immature Gran % (Auto) 1.0 H (0.0-0.4) % Neut % (Auto) 59.3 (45-73) % Lymph % (Auto) 26.5 (20-40) % [place] % (Auto) 10.6 (2-11) % Eos % (Auto) 2.1 (0-4) % Baso % (Auto) 0.5 (0-2) % Lymph # (Auto) 2.5 (1.2-4.9) X10*3/uL [place] # (Auto) 1.0 (0.1-1.2) X10*3/uL Eos # (Auto) 0.2 (0.0-0.4) X10*3/uL Baso # (Auto) 0.1 (0.0-0.2) X10*3/uL Abs Immat Gran (auto) 0.10 H (0.00-0.03) X10*3/uL Absolute Neuts (auto) 5.7 (2.0-8.3) x10*3/uL Absolute Nucleated RBC 0.000 (0.0-0.012) X10*3/uL Nucleated RBC % (auto) 0.0 (0.0-0.2) /100WBC Sodium 132 L (135-145) mmol/L Potassium 4.5 (3.3-5.1) mmol/L Chloride 104 (96-108) mmol/L Carbon Dioxide 19 L (22-29) mmol/L Anion Gap 14 (12-20) BUN 11 (9-16) mg/dL Creatinine 0.72 (0.5-1.4) mg/dL Estim Creat Clear Calc 49.8 Estimated GFR > 60 Random Glucose 140 H (60-115) mg/dL Calcium 9.1 (8.4-10.2) mg/dL B-Natriuretic Peptide 241 H (<100) pg/mL Independent Interpretation I performed an independent interpretation of an: Plain X-Ray (CXR: no chf) Independent Historian Clinical information obtained from an independent historian. History obtained from or confirmed by: EMS External Record Review External record reviewed: Prior outpatient labs and Prior outpatient radiology Tests considered The following testing was considered but not selected: US considered but patient with no calf tenderness and patient on aticoagulation Prescription Management I considered prescription management with: Antibiotic (no evidence of cellulitis) Chronic Conditions Patient?s care impacted by: Other (dementia) Discharge Plan Discharge Clinical Impression: Lower extremity edema Patient Disposition: Home, Self-Care Instructions: Leg Edema (ED) Prescriptions: No Action tolterodine 2 mg Capsule,Extended Release 24hr 2 mg PO DAILY metformin 500 mg Tablet 500 mg PO BID donepezil 10 mg Tablet 10 mg sertraline [Zoloft] 50 mg Tablet 50 mg PO DAILY loratadine 10 mg Tablet 10 mg PO DAILY cholecalciferol (vitamin D3) [Vitamin D3] 50 mcg (2,000 unit) Capsule 2,000 unit Eliquis 2.5 mg Tablet 2.5 mg PO BID cefuroxime axetil 250 mg tablet 250 mg PO BID 6 Days Qty: 12 0RF Referrals: Physician,Unknown J [Primary Care Provider] - 3 days Print Language: Chinese
--- NOTE | 2023-11-26 03:48 | PC.NURSE ---
Pt requested and given food and drink. Plan of care ongoing.
[2023-11-26 04:00] VITALS: BP 130/60; PULSE 60; RESP 12; TEMP 36.5; O2SAT 97
--- NOTE | 2023-11-26 04:28 | PC.NURSE ---
This RN gave nurse to nurse report to damaris Mcclure.
[2023-11-26 04:35] VITALS: BP 130/60; PULSE 60; RESP 12; TEMP 36.5; O2SAT 97
== END 2023-11-26 04:37 | disposition home or self-care (01) ==
PROVIDERS: Emergency Provider Emergency Medicine
DX: R60.0 Localized edema (principal); R06.02 Shortness of breath; R05.9 Cough, unspecified; E11.9 Type 2 diabetes mellitus without complications; Z79.899 Other long term (current) drug therapy; Z79.84 Long term (current) use of oral hypoglycemic drugs
CPT/HCPCS: 36415; 71045; 80048; 83880; 85025; 99283; 99284

== ENCOUNTER 2023-12-23 12:51 | Outpatient (AMB) | payer MEDICARE, MEDICAID, SELFPAY ==
--- NOTE | 2023-12-23 12:55 | A.OFFVIS_ITS ---
Vital Signs 12/23/23 12:56 Height 5 ft 3 in Weight 135 lb BMI 23.9 Intake Visit Reasons: Preop LT RF manipulation/MF trig 12/28/23 AR Intake Note: Ashley is a 83 yo right hand dominant female who presents today with a quality compliance manager from [facility] for a Pre-Operative visit. Patient is scheduled with Dr. Darden for a left ring finger manipulation as well as left middle finger trigger release, DOS 12/28/23. Consents signed in office today. Allergies meperidine [From Demerol] Allergy (Verified 12/23/23 13:00) Unknown HPI HPI Preop LT RF manipulation/MF trig 12/28/23 AR: Details: Ashley is an 83 year old right hand dominant woman, with a Hx of Dementia, seen today with a quality compliance manager from [facility], to discuss her left ring finger contracture. She is seen today in a wheelchair. She denies any changes in her symptoms or medical history. She has been performing OT hand therapy at her rehab facility. She says she struggles to keep her hand clean, but does work at it. She has no complaints of right hand pain or contractures. She has a Hx of pulmonary embolus, Alzheimers, vascular dementia, and Diabetes. She is on Eliquis for this. No HgA1c on file. [facility] Medical History (Updated 12/23/23 @ 13:05 by Noman Richards) Pulmonary embolus Depressed High cholesterol Alzheimer disease Diabetes HTN (hypertension) Vascular dementia COVID-19 Social History Patient Tobacco Use Status: Never used Tobacco Advance Directives Date on File: 07/30/21 Review of Systems Const All systems reviewed & are unremarkable except as noted in HPI and below Physical Exam Vital Signs: BMI result Body Mass Index 23.9 Const General: no acute distress and alert Orientation/consciousness: patient oriented x3 Neuro General: patient oriented x3 Extrem Other: Evaluation of Left Upper Extremity: The patient is alert, oriented, and in no acute distress Neuro: Median, Ulnar, Radial nerves motor and sensory intact and sensation is normal to the tips of all digits Vascular: Cap refill brisk ROM: She can bring her fingers closed to a fist, and extend her thumb, index, and small fingers and partially extend the middle finger She can extend her middle finger to ~2-3cm from the thenar mass. I think it is likely that the lack of middle finger extension is directly related to the lack of extension of the ring finger. Her ring finger is stuck fully flexed into her palm, actually creating an indentation in the palm, with the MCP & PIP joints both held in ~90 degrees of flexion, and the D IP joint held in about 60 degrees of flexion. I cannot bring her ring fingertip away from her palm without causing her pain. Is it hard to tell if this is a severely locked trigger finger, and she is not able to tolerate any further manipulation. ADduction deformity of the thumb Radiographs: 3 views of the left hand from 11/18/23 were reviewed by me today in clinic. They show no fractures or dislocations. 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 Left ring finger flexion contracture Question of possible locked trigger finger I educated her about this condition. Of note she has Alzheimers and resides in [facility]. She was able to participate in her care today, but is seen with a quality compliance manager from this facility. The tendon does not know how long the finger has been flexed, and we are not sure if it has actually been kept flexed for 4 years or not. I discussed operative and non-operative treatment options I recommend attempting a closed manipulation under general anesthesia, to see if this can be brought into extension. If this can be done then there may be a possible a1 twin release. The patient is in agreement and would like to proceed The risks and benefits of operative treatment were discussed with the patient and the patient wishes to proceed with surgery. These risks include, but are not limited to risk of damage to blood vessels, nerves, tendons, infection, recurrence, incomplete relief of preoperative symptoms, persistent pain, possible need for further surgery and the risks associated with regional blocks and anesthesia. The plan is to take the patient to the operating room sometime on 12/28/23 for the following procedures: 1. Left middle, ring, and small fingers BATSHEVA, under general 2. Possible left ring finger trigger release, under general All of the preoperative paperwork including the consent was reviewed today. All the patient's questions were answered. The patient understands that they will be contacted by our professor of theater soon to schedule this procedure She denies asthma, heart, kidney issues She has Diabetes & a hx of a pulmonary embolus. She is on Metformin & Eliquis for this. There is no HgA1c on file. She is unable to provide consent for herself, and we will need to have her paperwork signed by her Brother prior to surgery Scribed for Shayla Darden MD by Noman Richards, medical appliance maker, on 12/23/23 at 1:10 PM, EST. 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
[2023-12-23 12:56] VITALS: BMI 23.9
== END 2023-12-23 13:45 | disposition home or self-care (01) ==
PROVIDERS: PCP Emergency Medicine; Visit Provider Orthopaedic Surgery
DX: M24.542 Contracture, left hand (principal); G30.9 Alzheimer's disease, unspecified; F02.80 Dementia in other diseases classified elsewhere, unspecified severity, without behavioral disturbance, psychotic disturbance, mood disturbance, and anxiety; E11.9 Type 2 diabetes mellitus without complications; I26.99 Other pulmonary embolism without acute cor pulmonale
CPT/HCPCS: 99024

== ENCOUNTER → 2023-12-23 12:51 | Outpatient (BNVA) | payer MEDICARE, MEDICAID, SELFPAY | PROVIDERS: PCP Emergency Medicine; Visit Provider Orthopaedic Surgery | DX: Z01.818 Encounter for other preprocedural examination (principal); M24.542 Contracture, left hand; G30.9 Alzheimer's disease, unspecified; F02.80 Dementia in other diseases classified elsewhere, unspecified severity, without behavioral disturbance, psychotic disturbance, mood disturbance, and anxiety | CPT/HCPCS: 99212 ==

== ENCOUNTER 2024-01-13 09:39 | Outpatient (REF) | payer MEDICARE, MEDICAID, SELFPAY ==
--- NOTE | ~2024-01-13 | MR_ITS ---
EXAMINATION: MR WRIST WITHOUT CONTRAST, LEFT CLINICAL INFORMATION: Scapholunate interval widening. Limited range of motion. COMPARISON: Left hand radiographs dated 10/22/2023. TECHNIQUE: Multisequence MR imaging of the left wrist was obtained without contrast on a high-field strength scanner. FINDINGS: TRIANGULAR FIBROCARTILAGE: Increased T2 signal within the radial and styloid attachments, consistent degeneration. No measurable full-thickness tear. INTRINSIC LIGAMENTS: Attenuation through the volar aspect of the scapholunate ligament with mild associated widening measuring up to 0.5 cm, likely indicating chronic partial tearing. The dorsal aspect of the ligament appears intact. Intact lunotriquetral ligament. TENDONS/MEDIAN NERVE: Prominent thickening and heterogeneity of the second flexor digitorum profundus tendon with increased T2 signal and fluid in the tendon sheath, consistent with prominent tendinosis and tenosynovitis. Heterogeneity and linear increased T2 signal within the extensor carpi ulnaris tendon, consistent with tendinosis and longitudinal partial tearing. No full-thickness transverse tendon tear or tendon retraction. Intact medial nerve. ARTICULAR CARTILAGE/BONE: No acute fracture or dislocation. Partially visualized flexion at the metatarsophalangeal and interphalangeal joints as seen on the recent radiographs. Diffuse full-thickness articular cartilage loss with bony remodeling and subchondral cystic change as well as large marginal osteophytes at the first carpometacarpal joint. More moderate osteoarthritis at the triscaphe joint. Partially visualized osteoarthritis within the interphalangeal joints. No concerning lytic or blastic osseous lesion. JOINT FLUID/SOFT TISSUES: No soft tissue mass. Ganglion cyst volar to the radial styloid measuring up to 1.3 cm in greatest dimension. MR/MR wrist LT wo con IMPRESSION: 1. Prominent second flexor digitorum profundus tendinosis and tenosynovitis without a full-thickness transverse tendon tear or tendon retraction. 2. Extensor carpi ulnaris tendinosis with longitudinal partial tearing. No transverse tendon tear or tendon retraction. 3. Degeneration of the radial and styloid attachments of the triangular fibrocartilage complex without a measurable full-thickness tear. 4. Probable chronic partial tearing through the volar aspect of the scapholunate ligament with mild widening of the scapholunate interval. The dorsal aspect of the ligament appears intact. 5. Partially visualized flexion at the metatarsophalangeal and interphalangeal joints as seen on the recent radiographs. Severe osteoarthritis at the first carpometacarpal joint with more moderate osteoarthritis at the triscaphe joint. More moderate osteoarthritis at the interphalangeal joints. 6. Ganglion cyst volar to the radial styloid measuring up to 1.3 cm. Electronically signed by: Marlon Hernandez MD 01/13/2024 01:01 PM EDT
== END 2024-01-13 09:40 | disposition home or self-care (01) ==
LOC: HO.MRI 09:39
PROVIDERS: PCP Emergency Medicine; Visit Provider Orthopaedic Surgery
DX: M25.532 Pain in left wrist (principal)
CPT/HCPCS: 73221

== ENCOUNTER 2024-03-02 12:24 | Outpatient (AMB) | payer MEDICARE, MEDICAID, SELFPAY ==
[2024-03-02 12:35] VITALS: BMI 27.1
--- NOTE | 2024-03-02 12:35 | MHC.OFFVIS ---
Vital Signs 03/02/24 12:35 Height 5 ft 3 in Weight 153 lb BMI 27.1 Intake Visit Reasons: Preop LT RF manipulation/trig 03/10/24 AR Intake Note: Ashley is an 83 year old right hand dominant female who presents pre operatively for a left ring finger manipulation and trigger release scheduled 03/10/[address] Darden. Consent signed in office today. Allergies meperidine [From Demerol] Allergy (Verified 03/02/24 12:41) Unknown HPI HPI Preop LT RF manipulation/trig 03/10/24 AR: Details: Ashley is an 83 year old right hand dominant woman, with a Hx of Dementia, seen today with a sales representative public utilities from [facility], to discuss her left ring finger contracture. She is seen today in a wheelchair. She denies any changes in her symptoms or medical history. She has been performing OT hand therapy at her rehab facility. She says she struggles to keep her hand clean, but does work at it. She has no complaints of right hand pain or contractures. She has a Hx of pulmonary embolus, Alzheimers, vascular dementia, and Diabetes. She is on Eliquis for this. No HgA1c on file. She was initially scheduled for a trigger release & BATHSEVA on 12/28/23, but the staff at [facility] did not clear her in time and the surgery had to be cancelled. FOR[facility], LAT[facility] Medical History (Updated 12/23/23 @ 13:05 by Noman Richards) Pulmonary embolus Depressed High cholesterol Alzheimer disease Diabetes HTN (hypertension) Vascular dementia COVID-19 Social History Patient Tobacco Use Status: Never used Tobacco Advance Directives Date on File: 07/30/21 Physical Exam Vital Signs: BMI result Body Mass Index 27.1 Const General: no acute distress and alert Orientation/consciousness: patient oriented x3 Neuro General: patient oriented x3 Extrem Other: Evaluation of Left Upper Extremity: The patient is alert, oriented, and in no acute distress Neuro: Median, Ulnar, Radial nerves motor and sensory intact and sensation is normal to the tips of all digits Vascular: Cap refill brisk ROM: She can bring her fingers closed to a fist, and extend her thumb, index, and small fingers and partially extend the middle finger She can extend her middle finger to ~2-3cm from the thenar mass. I think it is likely that the lack of middle finger extension is directly related to the lack of extension of the ring finger. Her ring finger is stuck fully flexed into her palm, actually creating an indentation in the palm, with the MCP & PIP joints both held in ~90 degrees of flexion, and the D IP joint held in about 60 degrees of flexion. I cannot bring her ring fingertip away from her palm without causing her pain. Is it hard to tell if this is a severely locked trigger finger, and she is not able to tolerate any further manipulation. ADduction deformity of the thumb Radiographs: 3 views of the left hand from 11/18/23 were reviewed by me today in clinic. They show no fractures or dislocations. 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 Left ring finger flexion contracture Question of possible locked trigger finger I educated her about this condition. Of note she has Alzheimers and resides in [facility]. She was able to participate in her care today, but is seen with a sales representative public utilities from this facility. The tendon does not know how long the finger has been flexed, and we are not sure if it has actually been kept flexed for 4 years or not. I discussed operative and non-operative treatment options I recommend attempting a closed manipulation under general anesthesia, to see if this can be brought into extension. If this can be done then there may be a possible a1 twin release. The patient is in agreement and would like to proceed The risks and benefits of operative treatment were discussed with the patient and the patient wishes to proceed with surgery. These risks include, but are not limited to risk of damage to blood vessels, nerves, tendons, infection, recurrence, incomplete relief of preoperative symptoms, persistent pain, possible need for further surgery and the risks associated with regional blocks and anesthesia. The plan is to take the patient to the operating room sometime on 03/10/24 for the following procedures: 1. Left hand BATSHEVA, under general 2. Possible left ring finger trigger release, under general All of the preoperative paperwork including the consent was reviewed today. All the patient's questions were answered. The patient understands that they will be contacted by our sales effectiveness manager soon to schedule this procedure She denies asthma, heart, kidney issues She has Diabetes & a hx of a pulmonary embolus. She is on Metformin & Eliquis for this. There is no HgA1c on file. She must hold her Eliquis 48-72 hours prior to surgery per her SD a day [facility] She is unable to provide consent for herself, and we will need to have her paperwork signed by her Brother prior to surgery Scribed for Shayla Darden MD by Noman Richards, medical management trainer, on 03/02/24 at 1:10 PM, EST. 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
== END 2024-03-02 13:22 | disposition home or self-care (01) ==
PROVIDERS: PCP Emergency Medicine; Visit Provider Orthopaedic Surgery
DX: M24.542 Contracture, left hand (principal); G30.9 Alzheimer's disease, unspecified; F02.80 Dementia in other diseases classified elsewhere, unspecified severity, without behavioral disturbance, psychotic disturbance, mood disturbance, and anxiety; E11.9 Type 2 diabetes mellitus without complications; I26.99 Other pulmonary embolism without acute cor pulmonale
CPT/HCPCS: 99214

== ENCOUNTER → 2024-03-02 12:24 | Outpatient (BNVA) | payer MEDICARE, MEDICAID, SELFPAY | PROVIDERS: PCP Emergency Medicine; Visit Provider Orthopaedic Surgery | DX: Z01.818 Encounter for other preprocedural examination (principal); M24.542 Contracture, left hand; I26.99 Other pulmonary embolism without acute cor pulmonale; E11.9 Type 2 diabetes mellitus without complications; G30.9 Alzheimer's disease, unspecified; F02.80 Dementia in other diseases classified elsewhere, unspecified severity, without behavioral disturbance, psychotic disturbance, mood disturbance, and anxiety | CPT/HCPCS: 99212 ==

== ENCOUNTER 2024-03-10 05:40 | Day surgery (SDC) | payer MEDICARE, MEDICAID, SELFPAY ==
--- NOTE | 2023-12-24 14:29 | HO.ANESPROP2 ---
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 (Acute) Past Medical History Medical History (Updated 12/23/23 @ 13:05 by Noman Richards) Pulmonary embolus Depressed High cholesterol Alzheimer disease Diabetes HTN (hypertension) Vascular dementia COVID-19 Social History Social History Patient Tobacco Use Status: Never used Tobacco Advance Directives Date on File: 07/30/21 Meds Allergies Allergy/AdvReac Type Severity Reaction Status Date / Time meperidine [From Demerol] Allergy Unknown Verified 12/23/23 13:00 Home Medications ?Medication ?Instructions ?Recorded ?Confirmed ?Last Taken ?Type apixaban 2.5 mg tablet (Eliquis) 2.5 mg PO BID 09/04/23 09/04/23 Unknown History cholecalciferol (vitamin D3) 50 2,000 unit 09/04/23 Unknown History mcg (2,000 unit) capsule (Vitamin D3) donepezil 10 mg tablet 10 mg 09/04/23 Unknown History loratadine 10 mg tablet 10 mg PO DAILY 09/04/23 09/04/23 Unknown History metformin 500 mg tablet 500 mg PO BID 09/04/23 09/04/23 Unknown History sertraline 50 mg tablet (Zoloft) 50 mg PO DAILY 09/04/23 09/04/23 Unknown History tolterodine 2 mg capsule,extended 2 mg PO DAILY 09/04/23 09/04/23 Unknown History release 24 hr Exam Pertinent Lab Results Pertinent Lab Results: Laboratory Tests 11/26/23 11/26/23 01:51 02:39 WBC 9.6 Hgb 11.2 L Hct 32.9 L Plt Count 247 Sodium 132 L Potassium 4.5 Chloride 104 Carbon Dioxide 19 L BUN 11 Creatinine 0.72 Narrative Narrative: EKG Vent. Rate : 061 BPM Atrial Rate : 061 BPM P-R Int : 262 ms QRS Dur : 084 ms QT Int : 448 ms P-R-T Axes : 029 -46 000 degrees QTc Int : 450 ms Sinus rhythm with sinus arrhythmia with 1st degree A-V block Left axis deviation Minimal voltage criteria for LVH, may be normal variant ( R in aVL ) Inferior infarct (cited on or before 14-APR-2022) Possible Anterior infarct (cited on or before 14-APR-2022) Abnormal ECG When compared with ECG of 14-APR-2022 19:41, Questionable change in initial forces of Inferior leads Assessment and Plan Assessment Anesthesia Assessment: Chart Reviewed
[2024-03-08 08:28] VITALS: BMI 27.1
--- NOTE | 2024-03-09 10:15 | P.CONAN_ITS ---
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 If so, by whom?: No Are you DNR?: No Advance Directives: No Advance Directives Information Provided: Yes Advance Directives Date on File: 07/30/21 Recently lost weight without trying: No Nutrition Risks: No Nutritional Risk Patient : No Meds Allergies Allergy/AdvReac Type Severity Reaction Status Date / Time meperidine [From Demerol] Allergy Unknown Verified 03/10/24 06:37 Active Medications: Current Medications Cefazolin Sodium/Dextrose (Ancef) 2 gm in 50 mls @ 100 mls/hr IV PREOP ONE Stop: 03/10/24 05:29 Home Medications ?Medication ?Instructions ?Recorded ?Confirmed ?Last Taken ?Type apixaban 2.5 mg tablet (Eliquis) 2.5 mg PO BID 09/04/23 03/10/24 03/07/24 History cholecalciferol (vitamin D3) 50 2,000 unit 09/04/23 Unknown History mcg (2,000 unit) capsule (Vitamin D3) donepezil 10 mg tablet 10 mg 09/04/23 03/10/24 History loratadine 10 mg tablet 10 mg PO DAILY 09/04/23 03/10/24 03/10/24 History metformin 500 mg tablet 500 mg PO BID 09/04/23 03/10/24 Unknown History sertraline 50 mg tablet (Zoloft) 50 mg PO DAILY 09/04/23 03/10/24 03/10/24 History tolterodine 2 mg capsule,extended 2 mg PO DAILY 09/04/23 03/10/24 03/10/24 History release 24 hr Exam Height,Weight and Vital Signs: Height 5 ft 3 in Weight 69.4 kg Assessment and Plan Assessment Anesthesia Assessment: Chart Reviewed Documented by User: Sury Beyer MD 03/10/24 07:41 PMFSH Past Medical History Medical History Pulmonary embolus Depressed High cholesterol Alzheimer disease Diabetes HTN (hypertension) Vascular dementia COVID-19 Family History Family history of problems with anesthesia: No Surgical History History of Problems with Anesthesia: No Social History Social History Are you a primary pediatric care coordinator to a significant other at home: No Do you presently have visiting nurse or other home services: No Patient Tobacco Use Status: Never used Tobacco Use of substances other than those prescribed or required for medical reasons: No Have you been hit, kicked, punched, or otherwise hurt by someone within the past year? If so, by whom?: No Are you DNR?: No Advance Directives: No Advance Directives Information Provided: Yes Advance Directives Date on File: 07/30/21 Recently lost weight without trying: No Nutrition Risks: No Nutritional Risk Patient : No Meds Allergies Allergy/AdvReac Type Severity Reaction Status Date / Time meperidine [From Demerol] Allergy Unknown Verified 03/10/24 06:37 Home Medications ?Medication ?Instructions ?Recorded ?Confirmed ?Last Taken ?Type apixaban 2.5 mg tablet (Eliquis) 2.5 mg PO BID 09/04/23 03/10/24 03/07/24 History cholecalciferol (vitamin D3) 50 2,000 unit 09/04/23 Unknown History mcg (2,000 unit) capsule (Vitamin D3) donepezil 10 mg tablet 10 mg 09/04/23 03/10/24 History loratadine 10 mg tablet 10 mg PO DAILY 09/04/23 03/10/24 03/10/24 History metformin 500 mg tablet 500 mg PO BID 09/04/23 03/10/24 Unknown History sertraline 50 mg tablet (Zoloft) 50 mg PO DAILY 09/04/23 03/10/24 03/10/24 History tolterodine 2 mg capsule,extended 2 mg PO DAILY 09/04/23 03/10/24 03/10/24 History release 24 hr Exam Airway Mallampati Class: II TM Dist: >3cm Neck ROM: Poor Heart: rrr Lungs: cta Assessment and Plan Assessment Anesthesia Assessment: Anesthesia Plan Discussed Final Anesthetic Review Family History of Problems with Anesthesia: No History of Problems with Anesthesia: No NPO: Yes ASA Class: III Final Preanesthetic Review: No Changes in Pt Med Stat, Meds/Allgs Chart Reviewed, Consent Obtained/Reviewed, Anes Risks/Benef Reviewed and DNR Form (If Appl.) (reversed) Patient Risk: Low Procedure Risk: Low Anesthetic Plan Anesthetic Plan: GA Disposition: Standard PACU
[2024-03-10] VITALS (16 sets, daily range): BP systolic 106–134; BP diastolic 33–55; PULSE 53–81; RESP 10–20; TEMP 36.1; O2SAT 95–100
[2024-03-10 06:55] LABS: Glucose, Whole Blood 114 mg/dL (60-115)
[2024-03-10] MEDS: Lactated Ringers 1,000 ML 100 ML IVCONT (06:59)
--- NOTE | 2024-03-10 08:01 | MHC.SHP ---
Pre-Procedural Eval Section A - 24 Hr Update-Section A only Date of Service: 03/10/24 The patient is an INPATIENT: No Changes since office visit: Yes Cold of Flu in the past 2 weeks, Yes New Medical Problems, Yes Changes in Medication and Yes Patient answered all questions The patient has been examined within 24 hours of the surgical procedure. The History & Physical has been completed within 30 days and I have reviewed it.: Yes Section B - Complete if H&P > 30 days Chief Complaint: Contracture, left hand Allergies: Allergies Allergy/AdvReac Type Severity Reaction Status Date / Time meperidine [From Demerol] Allergy Unknown Verified 03/10/24 06:37 Plan I have reviewed the history and physical and performed a pertinent physical examination on my patient. No changes have occurred unless specified. The risks and benefits of operative treatment were discussed with the patient and her healthcare proxy and they wish to proceed with surgery. The patient has Alzheimer's disease. These risks include, but are not limited to risk of damage to blood vessels, nerves, tendons, infection, recurrence, incomplete relief of preoperative symptoms, persistent pain, possible need for further surgery and the risks associated with regional blocks and anesthesia. The plan is to take the patient to the operating room today for the following procedures: 1. Left ring finger closed manipulation under anesthesia and trigger finger release 2. Possible fractional lengthening as indicated All of the preoperative paperwork including the consent was filled out today.. And I had a conversation with the healthcare proxy regarding the procedure and consent. Consent was given. All the patient's questions were answered. Time Spent With Patient Time: Total time managing care of this patient today ____ minutes.
--- NOTE | 2024-03-10 08:04 | W.PM.OPN ---
Operative Note Operative Note Date of Service: 03/10/24 Narrative: Operative Note Narrative: Preop diagnosis: 1. Left ring finger clenched into tight flexion, with inability to passively or actively extend the finger. 2. Associated flexion tightness of the left middle and small fingers. Postop diagnosis: Same Procedure: 1. Left ring finger A1 twin release 2. Left ring finger flexor digitorum superficialis tenotomy 3. Left ring finger flexion contracture release with release of volar plate at the PIP joint 4. Left ring finger manipulation under anesthesia 5. Left middle finger manipulation of MCP and PIP joints under anesthesia Surgeon: Shayla Darden MD Supply Chain Planner: Golden PATEL Anesthesia: General Anesthesia [plus regional block] Findings: Thickening of the left ring finger A1 twin with mild hourglass deformity of the FDS and FDP tendons. Initially the left ring finger was fully flexed at the MCP/PIP and D IP joints with a fingertip tightly held in the mid palm. Associated tightness also of the left middle and ring fingers. Initial closed manipulation was successful in bringing the ring finger tip to about 3 cm from the palm. After release of the A1 twin there was still significant flexion contracture at the PIP joint. Release of the volar plate allowed for full extension at the PIP joint. Patient has near complete loss of articular cartilage at the distal articular surface of the proximal phalanx at the PIP joint. Tenotomy of the ulnar slip of the FDS had been helpful, but there was still some catching at the PIP joint. A complete tenotomy of the FDS tendon, with an intact FDP tendon did improve overall motion in the ring finger. Patient still had some catching at the PIP joint itself with passive range of motion, but I was able to easily bring the finger to full extension at the PIP joint. At this point the gentle catching that I am feeling at the PIP joint appears most likely secondary to her loss of articular cartilage and osteoarthritic changes. Implants: None Tourniquet time: 44 minutes EBL: 5.0 ml Specimen: FDS tendon Drains: None Complications: None Disposition: Brought to the recovery room in stable condition Plan: Discharge and returned to longterm today. Stay in volar splint until follow-up in 10-14 days. Follow-up in 10-14 days for wound check, suture removal and removal of splint. At that point let her start working on range of motion. If there is concerned that she will again try to hold the middle and ring fingers in tight flexion I would get her to OT hand therapy to put a ring splint with a paddle in the palm that will prevent full flexion of the ring finger for several weeks while allowing for range of motion of the other digits. Indications: The patient is a year old 83 with Alzheimer's disease, and a left ring finger that is stuck in tight flexion in the palm, and has been so for a long time. . The risks and benefits of operative treatment, including but not limited to risk of damage to blood vessels, nerves, tendons, infection, recurrence, persistent pain or numbness, incomplete resolution of preoperative symptoms, or need for further surgery were discussed with the patient and the person who can give consent for her surgery and they wished to proceed with surgery. Procedure: Once consent was obtained patient was brought back to the operating suite and placed in the operating table in a supine position. . Perioperative antibiotics and anesthesia was administered by the anesthesia team. A tourniquet was applied to the proximal aspect of the left upper extremity and the limb was prepped and draped in a standard surgical fashion. The limb was elevated exsanguinated with Esmarch bandage and the tourniquet inflated to 250 mm of mercury for a total tourniquet time of 44 minutes. Initially, a closed manipulation was performed on the left ring finger, allowing us to bring the tip of the ring finger out to about 3 cm from her palm. This then allowed me to make a 1.5 cm oblique incision over the left ring finger A1 twin. This was done using a 15. Blade through the skin and subcutaneous tissues. I then carefully dissected down to the level of the A1 twin. In A1 twin was released using tenotomy and iris scissors and a 15. Blade under direct visualization while protecting the neurovascular structures. She did have a mild hourglass deformity in the FDS and FDP tendons. Release of the A1 twin did allow us to bring the MCP joint out to almost full extension. We did note she had significant tightness of the FDP and FDS tendons in both the ring and middle fingers. This is most likely because she has been in this position for very long time. She clearly had a flexion contracture of the PIP joint where it was held in a flexed position at 90 degrees. She also had some catching with the finger was brought in and out of flexion and extension. I therefore decided to proceed with an ulnar slip tenotomy of the FDS tendon. I made a chevron/partial Mikhail incision over the middle and proximal phalanxes. This was done using a 15. Blade through the skin the subcutaneous tissues. I then carefully dissected down to the level of the flexor tendon using tenotomy scissors with care being taken to protect the neurovascular structures. The A3 twin was opened. I tenotomized the ulnar slip of the FDS tendon using a 15. Blade. I was able to bring the ulnar half of the FDS tendon to the A1 twin area after longitudinally incising the chiasm. I then removed the ulnar half of the FDS tendon and beveled its proximal attachment. We still had some catching at the PIP joint, and also a significant flexion contracture at the PIP joint itself. I then released the proximal aspect of the volar plate at the PIP joint after retracting the flexor tendons. This then allowed me to bring the PIP joint into full extension. She clearly has near complete loss of the cartilage on the distal articular surface of the proximal phalanx. The finger was still being held in more flexion than the adjacent digits. I made the decision to fully tenotomize the FDS tendon, releasing it at the radial slip of the FDS. This was then withdrawn into the A1 twin area in the FDS tendon was cut short. Again she has an intact FDP tendon. The A2 and A4 pulleys are intact. This did reduce the amount of passive flexion that the finger was held in. At this point she still did have a catching sensation when the PIP joint was passively brought between flexion and extension. It appears this is most likely secondary to the arthritic changes in the PIP joint itself. A closed manipulation was also performed on the MCP and PIP joints of the left middle finger. The tendons were tight, likely from being held in this position for so long. Ultimately I was able to bring all fingers into full extension. I decided that the middle ring and small finger should be splinted in extension until she is seen in clinic in 10-14 days. [ ] At this point the tourniquet was deflated and hemostasis obtained with a brief period of local pressure . The wound was copiously irrigated with normal saline. The skin edges were reapproximated with 5-0 nylon suture. The wound was infiltrated with some 1% lidocaine with epinephrine for postop pain control and a sterile dressing was applied. Volar splint was applied holding the middle ring and small fingers in extension but allowing for index finger opposition to the thumb. The patient appears to have tolerated the procedure well and with no complications. All digits were well vascularized conclusion of the case.
[2024-03-10] MEDS: fentaNYL citrate/PF 100 MCG/2 ML VIAL 25 MCG IVPUSH ×3 (10:17→10:44)
[2024-03-10] MEDS: ondansetron HCL 4 MG/2 ML VIAL IVPUSH (10:36)
== END 2024-03-10 12:48 | disposition home or self-care (01) ==
PROVIDERS: PCP Family Medicine Geriatric Medicine; Visit Provider Orthopaedic Surgery
PROC: (CPT 26455; principal; 2024-03-10 07:30)
DX: M24.542 Contracture, left hand (principal); M21.242 Flexion deformity, left finger joints; X58.XXXA Exposure to other specified factors, initial encounter; Y93.9 Activity, unspecified; Y92.9 Unspecified place or not applicable; Y99.9 Unspecified external cause status; G30.9 Alzheimer's disease, unspecified; F02.80 Dementia in other diseases classified elsewhere, unspecified severity, without behavioral disturbance, psychotic disturbance, mood disturbance, and anxiety; E11.9 Type 2 diabetes mellitus without complications; I10 Essential (primary) hypertension; E78.00 Pure hypercholesterolemia, unspecified; I26.99 Other pulmonary embolism without acute cor pulmonale; F32.A Depression, unspecified; Z79.01 Long term (current) use of anticoagulants; Z79.84 Long term (current) use of oral hypoglycemic drugs; Z79.899 Other long term (current) drug therapy; Z88.8 Allergy status to other drugs, medicaments and biological substances; Z66 Do not resuscitate
CPT/HCPCS: 26455; 26055; 26123; 26340 ×2; 82947; J0131; J0690; J2003; J2004; J2371; J2405; J2704; J3010

== ENCOUNTER → 2024-03-10 05:40 | Outpatient (BNV) | payer MEDICARE, MEDICAID, SELFPAY | PROVIDERS: PCP Family Medicine Geriatric Medicine; Visit Provider Orthopaedic Surgery | DX: M24.542 Contracture, left hand (principal) | CPT/HCPCS: 26055; 26123; 26340; 26455 ==

== ENCOUNTER 2024-03-22 12:13 | Outpatient (AMB) | payer MEDICARE, MEDICAID, SELFPAY ==
--- NOTE | 2024-03-22 13:01 | A.OFFVIS_ITS ---
Intake Visit Reasons: PO LT RF manipulation/trig 03/10/24 AR Intake Note: Ashley 83 yr old female presents today for her post op visit for her left ring finger manipulation/trigger release from DOS 03/10/[address] Darden. Patient rehab called and stated pt was removing dressing and would not keep any type of bandage on surgical area. Allergies meperidine [From Demerol] Allergy (Verified 03/22/24 13:03) Unknown HPI HPI PO LT RF manipulation/trig 03/10/24 AR: Details: The patient is an 83-year-old woman with dementia who was taken to the operating room by me on 03/10/2024 to try to alleviate the severe flexion contracture of her left ring finger which was digging into her palm. I suspect that this may have originally been a locked trigger finger. She is status post the following procedures: 1. Left ring finger A1 twin release 2. Left ring finger flexor digitorum superficialis tenotomy 3. Left ring finger flexion contracture release with release of volar plate at the PIP joint 4. Left ring finger manipulation under anesthesia 5. Left middle finger manipulation of MCP and PIP joints under anesthesia The patient is not happy about being here today, and does not remember having surgery on her hand. According to her rehab facility she removed her surgical dressing and splint holding her fingers in extension within a couple of days of surgery. She re fused to wear a splint at all. A note from OT says they tried to put splints on her but she repeatedly removes them. [facility] Medical History Pulmonary embolus Depressed High cholesterol Alzheimer disease Diabetes HTN (hypertension) Vascular dementia COVID-19 Social History (Reviewed 03/22/24 @ 13:03 by Abigail Holliday [facility]) Are you a primary home care physical therapist to a significant other at home: No Do you presently have visiting nurse or other home services: No Patient Tobacco Use Status: Never used Tobacco Advance Directives Date on File: 07/30/21 Physical Exam Extrem Other: Patient was alert and cooperative. She was unhappy about being here, and does not remember having surgery. She does have severe dementia. She has not been wearing her splint Her sutures are in place. The wound appears to be well healed. There is some mild erythema which appears to be most likely consistent with normal healing. She is not particularly tender over the incisions on the volar side of the ring finger. The wounds are somewhat moist in the palmar digital crease from not being extended, but overall appear to be healing well with no drainage or evidence of infection. On the positive side at rest her fingertips are approximately 1-2 cm from her palm, and the ring finger is no longer digging into her palm. Unfortunately, she would not allow me to passively even bring her fingertips more than perhaps 5 cm from her palm with the MCP joints held flexed and about 80 degrees of flexion and some flexion in the PIP joints. It took to MA days to take her stitches out as 1 had to try to hold the hand open as noted above while the other took out the sutures. All in all she tolerated it well, though she was very unhappy with the whole ordeal. Cap refill brisk sensation intact Findings at time of surgery: Findings: Thickening of the left ring finger A1 twin with mild hourglass deformity of the FDS and FDP tendons. Initially the left ring finger was fully flexed at the MCP/PIP and D IP joints with a fingertip tightly held in the mid palm. Associated tightness also of the left middle and ring fingers. Initial closed manipulation was successful in bringing the ring finger tip to about 3 cm from the palm. After release of the A1 twin there was still significant flexion contracture at the PIP joint. Release of the volar plate allowed for full extension at the PIP joint. Patient has near complete loss of articular cartilage at the distal articular surface of the proximal phalanx at the PIP joint. Tenotomy of the ulnar slip of the FDS had been helpful, but there was still some catching at the PIP joint. A complete tenotomy of the FDS tendon, with an intact FDP tendon did improve overall motion in the ring finger. Patient still had some catching at the PIP joint itself with passive range of motion, but I was able to easily bring the finger to full extension at the PIP joint. At this point the gentle catching that I am feeling at the PIP joint appears most likely secondary to her loss of articular cartilage and osteoarthritic changes. 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 Left ring finger flexion contracture Question of possible locked trigger finger Status post the following procedures: 1. Left ring finger A1 twin release 2. Left ring finger flexor digitorum superficialis tenotomy 3. Left ring finger flexion contracture release with release of volar plate at the PIP joint 4. Left ring finger manipulation under anesthesia 5. Left middle finger manipulation of MCP and PIP joints under anesthesia Date of surgery 03/10/2024 I educated her about this condition. Of note she has Alzheimers and resides in [facility]. She was able to participate in her care today, but is seen with a material control supervisor from this facility. Sutures were removed today. She is just not able to tolerate wearing a splint. A splint, even just at nighttime, would greatly help keep her from redeveloping her flexion contracture. She has not been able to do so for the last 2 weeks and it looks like she is just not going to be able to unless OT comes up with another idea. Fortunately, I can say that the fingertips or at least no longer digging into her palm. Prior to surgery her ring fingertip was digging into her palm at all times. We will see her back in another 5-6 weeks to see how she is doing. She has Diabetes & a hx of a pulmonary embolus. She is on Metformin & Eliquis for this. There is no HgA1c on file. 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
== END 2024-03-22 14:02 | disposition home or self-care (01) ==
PROVIDERS: PCP Emergency Medicine; Visit Provider Orthopaedic Surgery
DX: M24.542 Contracture, left hand (principal)
CPT/HCPCS: 99024

== ENCOUNTER → 2024-03-22 12:13 | Outpatient (BNVA) | payer MEDICARE, MEDICAID, SELFPAY | PROVIDERS: PCP Emergency Medicine; Visit Provider Orthopaedic Surgery | DX: M24.542 Contracture, left hand (principal); Z48.02 Encounter for removal of sutures | CPT/HCPCS: 99212 ==

== ENCOUNTER → 2024-05-04 13:43 | Outpatient (BNVA) | payer MEDICARE, MEDICAID, SELFPAY | PROVIDERS: PCP Emergency Medicine; Visit Provider Orthopaedic Surgery | DX: Z09 Encounter for follow-up examination after completed treatment for conditions other than malignant neoplasm (principal); M24.542 Contracture, left hand; Z98.890 Other specified postprocedural states | CPT/HCPCS: 99212 ==

== ENCOUNTER 2025-01-20 10:16 | Emergency (ER) | payer MEDICARE, MEDICAID, SELFPAY ==
[2025-01-20] VITALS (7 sets, daily range): BP systolic 106–135; BP diastolic 38–62; PULSE 61–80; RESP 14–19; TEMP 36.2–36.8; O2SAT 95–99; BMI 30.8
--- NOTE | ~2025-01-20 | XR_ITS ---
EXAMINATION: XR CHEST CLINICAL INFORMATION: chest pain COMPARISON: November 26, 2023 TECHNIQUE: Frontal view of the chest was obtained. FINDINGS: Pulmonary reticular pattern. Mild prominence of the interstitial markings. No gross consolidation or pneumothorax. Questionable blunting left costophrenic angle. Cardiomediastinal silhouette size is normal. Multilevel spondylosis. Osteopenia versus osteoporosis. Degenerative changes in the left shoulder with the questionable avascular necrosis left humeral head. Metallic prosthesis right humerus. Patient's large body habitus/obesity. XR/XR chest 1V IMPRESSION: Chronic interstitial lung disease with mild interstitial lung edema in the correct clinical settings. Probable small volume left-sided pleural effusion Electronically signed by: David Nova MD 01/20/2025 10:57 AM EDT
--- NOTE | ~2025-01-20 | CT_ITS ---
EXAMINATION: CT ABDOMEN PELVIS WITH IV CONTRAST HISTORY: epigastric pain COMPARISON: There are no prior studies for available comparison. TECHNIQUE: CT scan of the abdomen and pelvis was performed following administration of 85 mL Omnipaque 350 using standard departmental protocol. Coronal and sagittal reformatted images were generated and reviewed. This CT exam was performed with one or more of the following dose reduction techniques: automated exposure control, adjustment of the mA and/or kV according to patient size, use of iterative reconstruction technique. DLP: 582 mGy-cm FINDINGS: LOWER CHEST: The visualized lung bases are clear. There is no pleural effusion. CARDIOVASCULATURE: The heart is normal in size. There is no pericardial effusion. Coronary artery and aortic valve calcification. LIVER: The liver is normal in size and contour. No liver mass is identified. The hepatic and portal veins are patent. GALLBLADDER / BILE DUCTS: The gallbladder is not seen and has presumably been removed. There is no intra or extrahepatic biliary ductal dilatation. SPLEEN: The spleen is normal in size. No focal splenic lesion is identified. PANCREAS: The pancreas is unremarkable in appearance. ADRENAL GLANDS: Within normal limits. KIDNEYS/RETROPERITONEUM: No renal calculi are identified. There is no hydronephrosis. No renal masses are identified. LYMPH NODES: No large abdominal or pelvic lymphadenopathy. VASCULATURE: Severe atherosclerotic disease. No aneurysm. The SMA celiac axis and VANI appear patent. MESENTERY/PERITONEUM: No free fluid. No masses. There is no free intraperitoneal gas. STOMACH: Normal SMALL BOWEL: The small bowel is normal in caliber. COLON: Diverticulosis of the colon. No evidence of diverticulitis. There is question of wall thickening of the posterior rectum. This is slightly bilobed or lobulated in shape and low attenuation. This may represent hemorrhoids in Cannot exclude a mass and correlation with rectal exam recommended. APPENDIX: Not seen. No inflammatory changes in the right lower quadrant. URINARY BLADDER/PELVIC ORGANS: The urinary bladder is unremarkable. The uterus has been removed. No pelvic mass. BONES / SOFT TISSUES: Large umbilical hernia containing fat. Degenerative changes of the spine and hips. CT/CT abdomen pelvis w IV con IMPRESSION: No cause of epigastric pain seen. Diverticulosis of the colon. Question wall thickening of the posterior rectum. This appears low attenuation and lobulated in shape and may represent hemorrhoids. Correlation with physical exam to exclude posterior rectal mass recommended. Severe atherosclerotic disease. Electronically signed by: Shital Boo MD 01/20/2025 12:41 PM EDT RP
--- NOTE | 2025-01-20 10:21 | ECG_ITS ---
Test Reason : CP Blood Pressure : */* mmHG Vent. Rate : 60 BPM Atrial Rate : 60 BPM P-R Int : 284 ms QRS Dur : 80 ms QT Int : 430 ms P-R-T Axes : 33 -44 18 degrees QTcB Int : 430 ms Sinus rhythm with 1st degree A-V block Left axis deviation Minimal voltage criteria for LVH, may be normal variant ( R in aVL ) Inferior infarct (cited on or before 14-Apr-2022) Anterolateral infarct (cited on or before 14-Apr-2022) Abnormal ECG When compared with ECG of 03-Sep-2023 15:07, No significant change was found Referred By: Generic ED Physician Electronically Signed By: CHELO MAN MD
[2025-01-20 11:20] LABS: MANUAL DIFF FLAG NO
--- NOTE | 2025-01-20 11:26 | ED.CHESTPAIN ---
HPI - Chest Pain General Chief Complaint: Chest Pain Stated Complaint: CP PER EMS Time Seen by Provider: 01/20/25 10:32 Source: patient, EMS and old records reviewed Mode of arrival: EMS Limitations: other (dementia) History of Present Illness ED Provider: KIMBERLEY VELIZ narrative: 84 yo female with PMH of DM, dementia, HTN, PE on eliquis who reports she developed some upper abdominal pain this AM - sometime this AM. She denies dyspnea. She has mild nausea but no cough, urinary symptoms, diarrhea. Unsure if they medicated her at facility today. She states she thinks she is pooping okay. complaint: chest pain (upper abd pain) Onset (ago): day(s) (1) Timing of current episode: constant Pain location: substernal and epigastric Pain radiation: none Severity: moderate Quality: dull Relieving factors: nothing Exacerbating factors: nothing Context: other Associated symptoms: nausea Treatment prior to arrival: none Related Data Home Medications ?Medication ?Instructions ?Recorded ?Confirmed apixaban 2.5 mg tablet (Eliquis) 2.5 mg PO BID 09/04/23 03/10/24 cholecalciferol (vitamin D3) 50 2,000 unit 09/04/23 mcg (2,000 unit) capsule (Vitamin D3) donepezil 10 mg tablet 10 mg 09/04/23 loratadine 10 mg tablet 10 mg PO DAILY 09/04/23 03/10/24 metformin 500 mg tablet 500 mg PO BID 09/04/23 03/10/24 sertraline 50 mg tablet (Zoloft) 50 mg PO DAILY 09/04/23 03/10/24 tolterodine 2 mg capsule,extended 2 mg PO DAILY 09/04/23 03/10/24 release 24 hr Previous Rx's ?Medication ?Instructions ?Recorded cefuroxime axetil 250 mg tablet 250 mg PO BID 6 days #12 tabs 09/04/23 hydrocodone 5 mg-acetaminophen 325 1 tab PO Q6H PRN pain #20 tabs 03/10/24 mg tablet cefuroxime axetil 250 mg tablet 250 mg PO BID 7 days #14 tabs 01/20/25 furosemide 20 mg tablet (Lasix) 20 mg PO DAILY #7 tabs 01/20/25 Allergies Allergy/AdvReac Type Severity Reaction Status Date / Time meperidine (From Demerol) Allergy Unknown Verified 01/20/25 10:30 Review of Systems Review of Systems: ROS unable to be obtained due to altered mental status PMF Past Medical History Attestation statement: The following information was validated with the patient. Source: old records reviewed Medical History Pulmonary embolus Depressed High cholesterol Alzheimer disease Diabetes HTN (hypertension) Vascular dementia COVID-19 Social History Social History Are you a primary child care lead teacher to a significant other at home: No Do you presently have visiting nurse or other home services: No Patient Tobacco Use Status: Never used Tobacco Smoked in Last 30 Days: No Use of substances other than those prescribed or required for medical reasons: No Advance Directives: Yes Advance Directives on File: Yes Advance Directives Date on File: 07/30/21 Physical Exam Vital Signs: Vital Signs: Last Vital Signs Temp 97.7 F 01/20/25 13:16 Pulse 64 01/20/25 14:19 Resp 18 01/20/25 14:19 BP 121/52 L 01/20/25 14:19 Pulse Ox 96 01/20/25 14:19 O2 Del Method Room Air 01/20/25 14:19 BMI result Body Mass Index 30.8 Appearance: Alert. Oriented X2. No acute distress. Eyes: Pupils equal, round and reactive to light. ENT: Pharynx normal. Neck: Normal inspection. Neck supple. CVS: Normal heart rate and rhythm. Pulses normal. Respiratory: No respiratory distress. Breath sounds normal. Abdomen: Soft and moderate ttp to epigastric area with no rebound Skin: Skin warm and dry. pale skin color. Extremities: No lower extremity edema. Neuro: Oriented X 2. No motor deficit. No sensory deficit. CN2-12 intact Medications Administered Discontinued Medications Generic Name Dose Route Start Last Admin Trade Name Freq PRN Reason Stop Dose Admin Cefuroxime Axetil 250 mg 01/20/25 14:07 01/20/25 14:20 Cefuroxime Axetil 250 Mg Tablet PO 01/20/25 14:08 250 mg ONCE ONE Administration Acetaminophen 1,000 mg in 100 mls @ 400 mls/hr 01/20/25 10:49 01/20/25 12:10 Ofirmev IV 01/20/25 11:03 Infused ONCE ONE Infusion Iohexol 100 ml 01/20/25 12:19 01/20/25 12:19 Iohexol 350 Mg/Ml 100 Ml Infus..Btl IV 01/20/25 12:20 85 ml ONCE ONE Administration Ondansetron HCl 4 mg 01/20/25 10:49 01/20/25 11:19 Ondansetron Hcl 4 Mg/2 Ml Vial IVPUSH 01/20/25 10:50 4 mg ONCE ONE Administration Medical Decision Making Medical Decision Making [facility] Narrative: 84 yo female with PMH of DM, dementia, HTN, PE on eliquis now here with abdominal pain, low chest pain x 1 day with some nausea. At this time non acute abdomen on exam will obtain basic labs, EKG, CT scan for abdominal process - she is a poor historian. I am going to order UA/IV Tylenol and zofran. Could be abd pathology, pancreatitis, atypical ACS, doubt VTE given eliquis use Differential Diagnosis Differential Diagnoses: The differential diagnosis associated with the presentation includes gastritis, pancreatitis, enteritis, atypical ACS Admission/Observation Consideration of admission/observation: Escalation of care including admission/observation considered feels much better, work up reassuring does have UTI - will start on ceftin Lab Data [facility] Lab Attestation statement: I reviewed the patient's lab results. H/H no sig drop from prior + UTI trop negative has elevated BNP but no other signs of CHF will not treat clinically 01/20/25 11:12 01/20/25 11:12 Labs: Lab Results 01/20/25 01/20/25 Range/Units 11:12 13:57 WBC 7.7 (4.8-10.8) X10*3/uL RBC 3.63 L (4.20-5.50) X10*6/uL Hgb 10.6 L (12.0-16.0) g/dl Hct 33.6 L (37.0-47.0) % MCV 92.6 (80.0-98.0) fL MCH 29.2 (27.0-33.0) pg MCHC 31.5 (31.0-35.0) g/dl RDW 14.2 (11.0-16.0) % Plt Count 218 (160-400) X10*3/uL MPV 8.7 L (9.4-12.3) fL Immature Gran % (Auto) 0.4 (0.0-0.4) % Neut % (Auto) 58.9 (45-73) % Lymph % (Auto) 29.6 (20-40) % [place] % (Auto) 9.0 (2-11) % Eos % (Auto) 1.2 (0-4) % Baso % (Auto) 0.9 (0-2) % Lymph # (Auto) 2.3 (1.2-4.9) X10*3/uL [place] # (Auto) 0.7 (0.1-1.2) X10*3/uL Eos # (Auto) 0.1 (0.0-0.4) X10*3/uL Baso # (Auto) 0.1 (0.0-0.2) X10*3/uL Abs Immat Gran (auto) 0.03 (0.00-0.03) X10*3/uL Absolute Neuts (auto) 4.5 (2.0-8.3) x10*3/uL Absolute Nucleated RBC 0.000 (0.0-0.012) X10*3/uL Nucleated RBC % (auto) 0.0 (0.0-0.2) /100WBC Sodium 138 (135-145) mmol/L Potassium 4.9 (3.3-5.1) mmol/L Chloride 107 (96-108) mmol/L Carbon Dioxide 25 (22-29) mmol/L Anion Gap 11 L (12-20) BUN 13 (9-16) mg/dL Creatinine 0.77 (0.5-1.4) mg/dL Estim Creat Clear Calc 55.0 Estimated GFR > 60 Random Glucose 161 H (60-115) mg/dL Calcium 9.0 (8.4-10.2) mg/dL Magnesium 1.9 (1.6-2.6) mg/dL Total Bilirubin 0.3 (0.0-1.0) mg/dL Direct Bilirubin 0.1 (0.0-0.5) mg/dL AST 20 (5-31) U/L ALT 12 (0-31) U/L Alkaline Phosphatase 58 (39-117) U/L Troponin I High Sens < 2.7 (<3.5-17.0) ng/L NT-Pro-B Natriuret Pep 1037.3 H (<300) pg/mL Total Protein 6.1 L (6.5-8.0) g/dL Albumin 3.6 (3.5-5.0) g/dL Lipase 19 (8-78) U/L Urine Color Yellow Urine Appearance Hazy Urine pH 7.0 (5.0-9.0) Ur Specific [place] <= 1.005 (1.005-1.025) Urine Protein Negative (Neg-Trace) mg/dL Urine Glucose (UA) Negative (Negative) mg/dL Urine Ketones Negative (Negative) mg/dL Urine Blood Large (3+) H (Negative) Urine Nitrite Positive H (Negative) Ur Leukocyte Esterase Small (1+) H (Negative) Urine RBC >20 H (0-2) /HPF Urine WBC >50 H (0-5) /HPF Ur Squamous Epith Cells 0-2 (0-2) /HPF Urine Bacteria 4+ (None Seen) Hyaline Casts 0-2 (0-2) /LPF Independent Interpretation I performed an independent interpretation of an: EKG, Plain X-Ray (mild edema) and CT Scan Interpretation: Rate: 60 Rhythm: NSR with 1st degree AVB Burns: left Normal P waves. Normal JUAN MANUEL. Normal QRS complex. ST T wave : normal no EDWARD, inverted t wave V1 and III qTC: 430 prior studies: no acute ischemia The study has been interpreted contemporaneously by me. . Discharge Plan Discharge Clinical Impression: Atypical chest pain, Acute UTI, Pleural effusion on left Patient Disposition: Home, Self-Care Instructions: Chest Pain (ED), Urinary Tract Infection in Women (ED), Pleural Effusion (DC) Additional Instructions: EKG reassuring mild bump in CHF testing would start on lasix 20mg daily for 7 days no pneumonia on CXR, has small left lung effusion CT scan of abdomen no acute findings has small possible mass in rectal area needs to follow up with GI Return for any worsening symptoms, fevers, pain, vomiting or any other concerns CT/CT abdomen pelvis w IV con IMPRESSION: No cause of epigastric pain seen. Diverticulosis of the colon. Question wall thickening of the posterior rectum. This appears low attenuation and lobulated in shape and may represent hemorrhoids. Correlation with physical exam to exclude posterior rectal mass recommended. Severe atherosclerotic disease. On a cephalosporin?antibiotic, softer bowel movements are to be expected. Call your provider if you move your bowels more than 4 times a day, your bowel movements are almost all liquid, or you get a rash.?? Prescriptions: New cefuroxime axetil 250 mg tablet 250 mg PO BID 7 Days Qty: 14 0RF furosemide [Lasix] 20 mg tablet 20 mg PO DAILY Qty: 7 0RF No Action hydrocodone-acetaminophen 5-325 mg tablet 1 tab PO Q6H PRN (Reason: pain) Qty: 20 0RF Rx Instructions: Partial Fill upon patient request. tolterodine 2 mg Capsule,Extended Release 24hr 2 mg PO DAILY metformin 500 mg Tablet 500 mg PO BID donepezil 10 mg Tablet 10 mg sertraline [Zoloft] 50 mg Tablet 50 mg PO DAILY loratadine 10 mg Tablet 10 mg PO DAILY cholecalciferol (vitamin D3) [Vitamin D3] 50 mcg (2,000 unit) Capsule 2,000 unit Eliquis 2.5 mg Tablet 2.5 mg PO BID cefuroxime axetil 250 mg tablet 250 mg PO BID 6 Days Qty: 12 0RF Print Language: Other
[2025-01-20 11:35] LABS: Hematocrit 33.6 % (37.0-47.0); Hemoglobin 10.6 g/dl (12.0-16.0); Imm Gran Abs Auto 0.03 X10*3/uL (0.00-0.03); Imm Gran Pct Auto 0.4 % (0.0-0.4); Lymphocytes Absolute Auto 2.3 X10*3/uL (1.2-4.9); Mean Corpuscular HGB Conc 31.5 g/dl (31.0-35.0); Mean Corpuscular Hemoglobin 29.2 pg (27.0-33.0); Mean Corpuscular Volume 92.6 fL (80.0-98.0); NRBC Abs Auto 0.000 X10*3/uL (0.0-0.012); NRBC Pct Auto 0.0 /100WBC (0.0-0.2); Platelet Count 218 X10*3/uL (160-400); Red Blood Count 3.63 X10*6/uL (4.20-5.50); White Blood Count 7.7 X10*3/uL (4.8-10.8)
[2025-01-20 11:49] LABS: Alanine Aminotransferase 12 U/L (0-31); Albumin Level 3.6 g/dL (3.5-5.0); Alkaline Phosphatase 58 U/L (39-117); Anion Gap 11 (12-20); Aspartate Amino Transferase 20 U/L (5-31); Blood Urea Nitrogen 13 mg/dL (9-16); Calcium 9.0 mg/dL (8.4-10.2); Carbon Dioxide 25 mmol/L (22-29); Chloride 107 mmol/L (96-108); Creatinine Clr Calc Pharmacy 55.0; Estimated Glomerular Filt Rate > 60; Lipase 19 U/L (8-78); Magnesium 1.9 mg/dL (1.6-2.6); Potassium 4.9 mmol/L (3.3-5.1); Sodium 138 mmol/L (135-145); Total Protein 6.1 g/dL (6.5-8.0)
[2025-01-20 11:56] LABS: NT Pro B Type Natriuretic Pept 1037.3 pg/mL (<300)
[2025-01-20 11:58] LABS: Troponin-I High Sensitivity < 2.7 ng/L (<3.5-17.0)
[2025-01-20] MEDS: iohexoL 350 MG/ML 100 ML INFUS..BTL IV (12:19)
[2025-01-20 14:02] LABS: Appearance Urine Hazy; Glucose Urine UA Negative (Negative); PH 7.0 (5.0-9.0); Specific Gravity - Urine <= 1.005 (1.005-1.025); UMIC TRIGGER UACC YES
--- OUTSIDE RECORDS SUMMARY | 2025-01-20 14:03 | XMS_ITS | Encounter Summary ---
Author Organization [facility] Address [address] [place] [address] Care Team Providers Care Top Lift Trimmer Name Role Phone Juve Lockwood MD Primary Care Provider [phone] Encounter Details Date Type Department Care Team (Late st Contact Info) Description 02/10/2024 Lab Requisition [facility] Main Lab [address] [place] [address] Juve Lockwood MD [address] [place] [id number] Dysuria Social History Tobacco Use Types Packs/Day Years Used Date Smoking Tobacco: Never Assessed Comments Unknown Sex and Gender Information Value Date Recorded Sex Assigned at Not on file Legal Sex Female 8:07 AM EST Gender Identity Not on file Sexual Orientation Not on file documented as of this encounter Plan of Treatment Not on file documented as of this encounter Procedures Procedure Name Priority Date/Time Associated Diagnosis Comments TIGER TOP URINE TUBE Routine 02/09/2024 12:00 AM EST Dysuria CULTURE URINE Routine 02/09/2024 12:00 AM EST Dysuria documented in this encounter Results * [place] top urine tube (02/09/2024 12:00 AM EST) Extra Tube Hold for add-ons. 02/10/2024 1:[address] [facility] Comment:Auto resulted. Urine Urine specimen obtained by clean catch procedure / Unknown Non-blood Collection / Unknown 02/09/2024 02/10/2024 11:03 AM EST us Juve Lockwood MD LAB URINE ORDERABLES Final Res ult Performing Organization Address City/[facility]/ZIP Co de Phone Number [facility] [address] [place] [address], [place] [phone] * (ABNORMAL) Culture urine (02/09/2024 12:00 AM EST) Culture, Urine >100,000 CFU/mL Escherichia coli(A) LIZETH 02/12/2024 10:[address] [facility] Urine Urine specimen obtained by clean catch procedure / Unknown Non-blood Collection / Unknown 02/09/2024 02/10/2024 11:03 AM EST Narrative Organism Antibiotic Method Susceptibility Escherichia coli Amoxicillin/Clavulanate LIZETH 4 ug/ml: Susceptible Escherichia coli Ampicillin/Sulbactam LIZETH 16 ug/ml: Intermediate Escherichia coli Piperacillin/Tazobactam LIZETH <=4 ug/ml: Susceptible Escherichia coli Cefazolin (Urine) LIZETH 4 ug/ml: Susceptible Escherichia coli Cefoxitin LIZETH <=4 ug/ml: Susceptible Escherichia coli Ceftazidime LIZETH <=0.5 ug/ml: Susceptible Escherichia coli Ceftriaxone LIZETH <=0.25 ug/ml: Susceptible Escherichia coli Cefepime LIZETH <=0.12 ug/ml: Susceptible Escherichia coli Meropenem LIZETH <=0.25 ug/ml: Susceptible Escherichia coli Amikacin LIZETH <=1 ug/ml: Susceptible Escherichia coli Gentamicin LIZETH <=1 ug/ml: Susceptible Escherichia coli Ciprofloxacin LIZETH <=0.06 ug/ml: Susceptible Escherichia coli Levofloxacin LIZETH <=0.12 ug/ml: Susceptible Escherichia coli Nitrofurantoin LIZETH <=16 ug/ml: Susceptible Escherichia coli Trimethoprim/Sulfamethoxazole LIZETH >=320 ug/ml: Resistant Juve Lockwood MD LAB MICROBIOLOGY - GENERAL ORD ERABLES Final Result Performing Organization Address [facility]/ZIP Co de Phone Number [facility] [address] [place] [address], [place] [phone] documented in this encounter Visit Diagnoses Diagnosis Dysuria documented in this encounter Additional Health Concerns Infection Onset Date Last Indicated Resolved Time Respiratory Rule-Out 08/27/2024 08/26/2024 025 3:17 PM EDT C. difficile Rule-Out 09/07/2024 09/06/20242024 11:34 AM EDT Gastrointestinal Rule-Out 09/07/2024 09/06/2024 11:45 AM EDT documented as of this encounter Care Teams Top Lift Trimmer Relationship Specialty Start Date End Date Juve Lockwood MD [address] [place] [id number] PCP - General Internal Medicine 04/21/24 documented as of this encounter
[2025-01-20 14:04] LABS: UACC Culture Trigger YES
--- OUTSIDE RECORDS SUMMARY | 2025-01-20 14:04 | XMS_ITS | Encounter Summary ---
Author Organization [facility] Address [address] [place] [address] Care Team Providers Care Composer Teaching Artist Name Role Phone Juve Lockwood MD Primary Care Provider Encounter Details Date Type Department Care Team (Late st Contact Info) Description 07/14/2024 Lab Requisition [facility] - Main Lab [address] [facility] [place] [address] Arias Morel MD [address] [place], [place] [id number] Dysuria; Unspecified dementia, unspecified severity, without behavioral disturbance, psychotic disturbance, mood disturbance, and anxiety (CMS/HCC V24, CMS/HCC V28) Social History Tobacco Use Types Packs/Day Years [...] Procedure Name Priority Date/Time Associated Diagnosis Comments URINALYSIS WITH REFLEX MICROSCOPIC Routine 07/13/2024 12:00 AM EDT Dysuria Unspecified dementia, unspecified severity, without behavioral disturbance, psychotic disturbance, mood disturbance, and anxiety (CMS/HCC V24, CMS/HCC V28) URINALYSIS WITH REFLEX MICROSCOPIC Routine 07/13/2024 12:00 AM EDT Dysuria Unspecified dementia, unspecified severity, without behavioral disturbance, psychotic disturbance, mood disturbance, and anxiety (CMS/HCC V24, CMS/HCC V28) CULTURE URINE Routine 07/13/2024 12:00 AM EDT Dysuria Unspecified dementia, unspecified severity, without behavioral disturbance, psychotic disturbance, mood disturbance, and anxiety ([facility] V24, [facility] V28) documented in this encounter Results * (ABNORMAL) Urinalysis with reflex microscopic (07/13/2024 12:00 AM EDT) Specific [place] Urine 1.010 1.003 - 1.030 LAB URINALYSIS - AUTOMATED METHOD 07/14/2024 7:49 AM [facility] pH, Urine 7.5 5.0 - 8.0 pH LAB URINALYSIS - AUTOMATED METHOD 07/14/2024 7:49 AM [facility] Leukocytes, Urine Large(A) Negative LAB URINALYSIS - AUTOMATED METHOD 07/14/2024 7:49 AM [facility] Nitrite, Urine Positive(A) Negative LAB URINALYSIS - AUTOMATED METHOD 07/14/2024 7:49 AM [facility] Protein, Urine Negative <=Trace mg/dL LAB URINALYSIS - AUTOMATED METHOD 07/14/2024 7:49 AM [facility] Glucose, Urine Negative Negative mg/dL LAB URINALYSIS - AUTOMATED METHOD 07/14/2024 7:49 AM [facility] Ketones, Urine Negative Negative mg/dL LAB URINALYSIS - AUTOMATED METHOD 07/14/2024 7:49 AM [facility] Urobilinogen , Urine 0.2 0.2 - 1.0 mg/dL LAB URINALYSIS - AUTOMATED METHOD 07/14/2024 7:49 AM [facility] Bilirubin, Urine Negative Negative LAB URINALYSIS - AUTOMATED METHOD 07/14/2024 7:49 AM [facility] Blood, Urine Negative Negative LAB URINALYSIS - AUTOMATED METHOD 07/14/2024 7:49 AM [facility] RBC, Urine 1.4 0 - 4 /HPF LAB URINALYSIS - AUTOMATED METHOD 07/14/2024 7:49 AM EDT [facility] WBC, Urine 10.0(H) 0 - 4 /HPF LAB URINALYSIS - AUTOMATED METHOD 07/14/2024 7:49 AM EDT [facility] Squamous Epithelial, Urine 40 0 - 60 /LPF LAB URINALYSIS - AUTOMATED METHOD 07/14/2024 7:49 AM EDT [facility] Bacteria, Urine Few(A) Negative /HPF LAB URINALYSIS - AUTOMATED METHOD 07/14/2024 7:49 AM EDT [facility] Hyaline Casts, Urine 0.00 0 - 3 /LPF LAB URINALYSIS - AUTOMATED METHOD 07/14/2024 7:49 AM EDT [facility] Urine Urine specimen obtained by clean catch procedure / Unknown Non-blood Collection / Unknown 07/13/2024 07/14/2024 6:55 AM EDT us Arias Morel MD LAB URINE ORDERABLES Final Resul t [facility] [address] [place] [address], * (ABNORMAL) Culture urine (07/13/2024 12:00 AM EDT) Culture, Urine >100,000 CFU/mL Escherichia coli(A) LIZETH 07/16/2024 11:14 AM EDT [facility] Urine Urine specimen obtained by clean catch procedure / Unknown Non-blood Collection / Unknown 07/13/2024 07/14/2024 6:55 AM EDT Narrative Organism Antibiotic Method Susceptibility Escherichia coli Amoxicillin/Clavulanate LIZETH 4 ug/ml: Susceptible Escherichia coli Ampicillin/Sulbactam LIZETH 16 ug/ml: Intermediate Escherichia coli Piperacillin/Tazobactam LIZETH <=4 ug/ml: Susceptible Escherichia coli Cefazolin (Urine) LIZETH 8 ug/ml: Susceptible Escherichia coli Cefoxitin LIZETH <=4 ug/ml: Susceptible Escherichia coli Ceftazidime LIZETH <=0.5 ug/ml: Susceptible Escherichia coli Ceftriaxone LIZETH <=0.25 ug/ml: Susceptible Escherichia coli Cefepime LIZETH <=0.12 ug/ml: Susceptible Escherichia coli Meropenem LIZETH <=0.25 ug/ml: Susceptible Escherichia coli Amikacin LIZETH 2 ug/ml: Susceptible Escherichia coli Gentamicin LIZETH <=1 ug/ml: Susceptible Escherichia coli Ciprofloxacin LIZETH <=0.06 ug/ml: Susceptible Escherichia coli Levofloxacin LIZETH <=0.12 ug/ml: Susceptible Escherichia coli Nitrofurantoin LIZETH <=16 ug/ml: Susceptible Escherichia coli Trimethoprim/Sulfamethoxazole LIZETH >=320 ug/ml: Resistant Arias Morel MD LAB MICROBIOLOGY - GENERAL ORDER JUSTUS Final Result [facility] [address] [place] [address], documented in this encounter Visit Diagnoses Diagnosis Dysuria Unspecified dementia, unspecified severity, without behavioral disturbance, psychotic disturbance, mood disturbance, and anxiety (CMS/HCC V24, CMS/HCC V28) documented in this encounter Additional Health Concerns Infection Onset Date Last Indicated Resolved Time Respiratory Rule-Out 08/27/2024 08/26/2024 025 3:17 PM EDT C. difficile Rule-Out 09/07/2024 09/06/20242024 11:34 AM EDT Gastrointestinal Rule-Out 09/07/2024 09/06/2024 11:45 AM EDT documented as of this encounter Care Teams Composer Teaching Artist Relationship Specialty Start Date End Date Juve Lockwood MD [address] [place] [id number] PCP - General Internal Medicine 04/21/24 documented as of this encounter
--- OUTSIDE RECORDS SUMMARY | 2025-01-20 14:04 | XMS_ITS | Encounter Summary ---
Author Organization [facility] Address [address] [place] [address] Care Team Providers Care Surface Miner Name Role Phone Juve Lockwood MD Primary Care Provider [phone] Encounter Details Date Type Department Care Team (Late st Contact Info) Description 06/08/2024 Lab Requisition [facility] - Main Lab [address] [facility] [place] [address] Arias Morel MD [address] [place] [address] Type 2 diabetes mellitus without complications (CMS/HCC V24, CMS/HCC V28) Social History Tobacco [...] Procedure Name Priority Date/Time Associated Diagnosis Comments LAVENDER - EDTA Routine 06/08/2024 12:46 PM EDT Type 2 diabetes mellitus without complications (CMS/HCC) COMPLETE BLOOD COUNT Routine 06/08/2024 12:46 PM EDT Type 2 diabetes mellitus without complications (CMS/HCC) HEMOGLOBIN A1C Routine 06/08/2024 12:46 PM EDT Type 2 diabetes mellitus without complications (CMS/HCC) FERRITIN Routine 06/08/2024 12:46 PM EDT Type 2 diabetes mellitus without complications (CMS/HCC) COMPREHENSIVE METABOLIC PANEL Routine 06/08/2024 12:46 PM EDT Type 2 diabetes mellitus without complications (CMS/HCC) documented in this encounter Results * Lavender tube (06/08/2024 12:46 PM EDT) [facility] Extra Tube Hold for add-ons. 06/08/2024 4:01 PM EDT [facility] Comment:Auto resulted. Blood Venous blood specimen / Unknown 06/08/2024 12:46 PM EDT 06/08/2024 2:46 PM EDT us Arias Morel MD LAB BLOOD ORDERABLES Final Resul t [facility] [address] [place] [address], [place] [phone] * Ferritin (06/08/2024 12:46 PM EDT) [facility] Ferritin 113 8 - 252 ng/mL LAB CHEMISTRY METHOD 06/08/2024 3:46 PM EDT [facility] Blood Venous blood specimen / Unknown Venipuncture / Unknown 06/08/2024 12:46 PM EDT 06/08/2024 2:25 PM EDT us Arias Morel MD LAB BLOOD ORDERABLES Final Resul t [facility] [address] [place] [address], [place] [phone] * Hemoglobin A1c (06/08/2024 12:46 PM EDT) [facility] Hemoglobin A1C 6.2 <6.5 % LAB CHEMISTRY METHOD 06/09/2024 11:30 AM EDT [facility] Mean Bld Glu Estim. 131 mg/dL LAB CHEMISTRY METHOD 06/09/2024 11:30 AM EDT [facility] Blood Venous blood specimen / Unknown Venipuncture / Unknown 06/08/2024 12:46 PM EDT 06/08/2024 2:25 PM EDT Arias Morel MD LAB BLOOD ORDERABLES Final Resul t [facility] [address] [place] [address], [place] [phone] * (ABNORMAL) Comprehensive metabolic panel (06/08/2024 12:46 PM EDT) Pathologist [facility] Sodium 139 133 - 145 mmol/L LAB CHEMISTRY METHOD 06/08/2024 3:48 PM EDT [facility] Potassium 4.1 3.5 - 5.5 mmol/L LAB CHEMISTRY METHOD 06/08/2024 3:48 PM [facility] Chloride 106 96 - 110 mmol/L LAB CHEMISTRY METHOD 06/08/2024 3:48 PM [facility] CO2 23 21 - 32 mmol/L LAB CHEMISTRY METHOD 06/08/2024 3:48 PM [facility] Anion Gap 10 3 - 11 LAB CHEMISTRY METHOD 06/08/2024 3:48 PM [facility] Glucose 134(H) 70 - 100 mg/dL LAB CHEMISTRY METHOD 06/08/2024 3:48 PM [facility] BUN 9 5 - 25 mg/dL LAB CHEMISTRY METHOD 06/08/2024 3:48 PM T [facility] Creatinine 0.75 0.50 - 1.10 mg/dL LAB CHEMISTRY METHOD 06/08/2024 3:48 PM [facility] eGFR 79 >=60 mL/min/1. 73m2 LAB CHEMISTRY METHOD 06/08/2024 3:48 PM [facility] Comment:Calculation based on the Chronic Kidney Disease Epidemiology Collaboration (CKD-EPI) equation refit without adjustment for race. BUN/Creatinine Ratio 12.0 LAB CHEMISTRY METHOD 06/08/2024 3:48 PM EDT [facility] Calcium 8.2(L) 8.5 - 10.5 mg/dL LAB CHEMISTRY METHOD 06/08/2024 3:48 PM EDT [facility] AST (SGOT) 21 10 - 42 unit/L LAB CHEMISTRY METHOD 06/08/2024 3:48 PM EDT [facility] ALT (SGPT) 17 10 - 60 unit/L LAB CHEMISTRY METHOD 06/08/2024 3:48 PM EDT [facility] Alkaline Phosphatase 95 42 - 121 unit/L LAB CHEMISTRY METHOD 06/08/2024 3:48 PM EDT [facility] Total Protein 6.3 6.0 - 8.0 g/dL LAB CHEMISTRY METHOD 06/08/2024 3:48 PM EDT [facility] Albumin 3.2 3.2 - 5.0 g/dL LAB CHEMISTRY METHOD 06/08/2024 3:48 PM EDT [facility] Total Bilirubin 0.2 0.0 - 1.4 mg/dL LAB CHEMISTRY METHOD 06/08/2024 3:48 PM EDT [facility] Blood Venous blood specimen / Unknown Venipuncture / Unknown 06/08/2024 12:46 PM EDT 06/08/2024 2:25 PM EDT us Arias Morel MD LAB BLOOD ORDERABLES Final Resul t [facility] [address] [place] [address], * (ABNORMAL) Complete blood count (06/08/2024 12:46 PM EDT) WBC 4.7(L) 4.8 - 10.8 K/mcL LAB HEMETOLOGY METHOD 06/08/2024 2:53 PM EDT [facility] RBC 3.60(L) 3.80 - 4.80 M/mcL LAB HEMETOLOGY METHOD 06/08/2024 2:53 PM EDT [facility] Hemoglobin 10.6(L) 11.5 - 16.0 g/dL LAB HEMETOLOGY METHOD 06/08/2024 2:53 PM EDT [facility] Hematocrit 32.0(L) 35.0 - 47.0 % LAB HEMETOLOGY METHOD 06/08/2024 2:53 PM EDT [facility] MCV 88.9 79.0 - 98.0 FL LAB HEMETOLOGY METHOD 06/08/2024 2:53 [facility] MCH 29.4 27.0 - 32.0 pcg LAB HEMETOLOGY METHOD 06/08/2024 2:53 [facility] MCHC 33.1 32.0 - 37.0 g/dL LAB HEMETOLOGY METHOD 06/08/2024 2:53 PM [facility] RDW 14.5 11.0 - 15.0 % LAB HEMETOLOGY METHOD 06/08/2024 2:53 PM EDT [facility] Platelets 191 130 - 400 K/mcL LAB HEMETOLOGY METHOD 06/08/2024 2:53 PM [facility] MPV 8.5 7.0 - 11.0 FL LAB HEMETOLOGY METHOD 06/08/2024 2:53 PM EDT [facility] NRBC 0.0 <1.0 % LAB HEMETOLOGY METHOD 06/08/2024 2:53 PM [facility] NRBC Absolute 0.00 <0.10 K/mcL LAB HEMETOLOGY METHOD 06/08/2024 2:53 PM [facility] Blood Venous blood specimen / Unknown Venipuncture / Unknown 06/08/2024 12:46 PM EDT 06/08/2024 2:25 PM EDT us Arias Morel MD LAB BLOOD ORDERABLES Final Resul t [facility] [address] [place] [address], documented in this encounter Visit Diagnoses Diagnosis Type 2 diabetes mellitus without complications (CMS/HCC V24, CMS/HCC V28) documented in this encounter Additional Health Concerns Infection Onset Date Last Indicated Resolved Time Respiratory Rule-Out 08/27/2024 08/26/2024 025 3:17 PM EDT C. difficile Rule-Out 09/07/2024 09/06/20242024 11:34 AM EDT Gastrointestinal Rule-Out 09/07/2024 09/06/2024 11:45 AM EDT documented as of this encounter Care Teams Surface Miner Relationship Specialty Start Date End Date Juve Lockwood MD [address] [place] [id number] PCP - General Internal Medicine 04/21/24 documented as of this encounter
--- OUTSIDE RECORDS SUMMARY | 2025-01-20 14:04 | XMS_ITS | Encounter Summary ---
Author Organization [facility] Address [address] [place] [address] Care Team Providers Care Aerial Erector Name Role Phone Juve Lockwood MD Primary Care Provider [phone] Encounter Details Date Type Department Care Team (Late st Contact Info) Description 05/25/2024 Lab Requisition [facility] - Main Lab [address] [facility] [place] [address] Arias Morel MD [address] [place] [address] Chest pain, unspecified; Vitamin D deficiency, unspecified; Type 2 diabetes mellitus without complications (CMS/HCC V24, CMS/HCC V28); Other correction (current) drug therapy Social History Tobacco Use Types Packs/Day Years [...] Procedure Name Priority Date/Time Associated Diagnosis Comments COMPLETE BLOOD COUNT Routine 05/25/2024 4:47 AM EST Chest pain, unspecified Vitamin D deficiency, unspecified Type 2 diabetes mellitus without complications (CMS/HCC) Other correction (current) drug therapy FERRITIN Routine 05/25/2024 4:47 AM EST Chest pain, unspecified Vitamin D deficiency, unspecified Type 2 diabetes mellitus without complications (CMS/HCC) Other correction (current) drug therapy documented in this encounter Results * Ferritin (05/25/2024 4:47 AM EST) Ferritin 41 8 - 252 ng/mL LAB CHEMISTRY METHOD 05/25/2024 11:10 AM EST [facility] Blood Venous blood specimen / Unknown Venipuncture / Unknown 05/25/2024 4:47 AM EST 05/25/2024 10:03 AM EST us Arias Morel MD LAB BLOOD ORDERABLES Final Resul t [facility] [address] [place] [address], [place] [phone] * (ABNORMAL) Complete blood count (05/25/2024 4:47 AM EST) [facility] WBC 8.0 4.8 - 10.8 K/mcL LAB HEMETOLOGY METHOD 05/25/2024 10:43 AM [facility] RBC 3.60(L) 3.80 - 4.80 M/mcL LAB HEMETOLOGY METHOD 05/25/2024 10:43 AM [facility] Hemoglobin 10.4(L) 11.5 - 16.0 g/dL LAB HEMETOLOGY METHOD 05/25/2024 10:43 AM [facility] Hematocrit 32.8(L) 35.0 - 47.0 % LAB HEMETOLOGY METHOD 05/25/2024 10:43 AM [facility] MCV 91.6 79.0 - 98.0 FL LAB HEMETOLOGY METHOD 05/25/2024 10:43 AM [facility] MCH 29.1 27.0 - 32.0 pcg LAB HEMETOLOGY METHOD 05/25/2024 10:43 AM [facility] MCHC 31.7(L) 32.0 - 37.0 g/dL LAB HEMETOLOGY METHOD 05/25/2024 10:43 AM [facility] RDW 14.8 11.0 - 15.0 % LAB HEMETOLOGY METHOD 05/25/2024 10:43 AM EST [facility] Platelets 296 130 - 400 K/mcL LAB HEMETOLOGY METHOD 05/25/2024 10:43 AM EST [facility] MPV 8.6 7.0 - 11.0 FL LAB HEMETOLOGY METHOD 05/25/2024 10:43 AM EST [facility] NRBC 0.0 <1.0 % LAB HEMETOLOGY METHOD 05/25/2024 10:43 AM EST [facility] NRBC Absolute 0.00 <0.10 K/mcL LAB HEMETOLOGY METHOD 05/25/2024 10:43 AM [facility] Blood Venous blood specimen / Unknown Venipuncture / Unknown 05/25/2024 4:47 AM EST 05/25/2024 10:03 AM EST us Arias Morel MD LAB BLOOD ORDERABLES Final Resul t [facility] [address] [place] [address], documented in this encounter Visit Diagnoses Diagnosis Chest pain, unspecified Vitamin D deficiency, unspecified Type 2 diabetes mellitus without complications (CMS/HCC V24, CMS/HCC V28) Other correction (current) drug therapy documented in this encounter Additional Health Concerns Infection Onset Date Last Indicated Resolved Time Respiratory Rule-Out 08/27/2024 08/26/2024 025 3:17 PM EDT C. difficile Rule-Out 09/07/2024 09/06/20242024 11:34 AM EDT Gastrointestinal Rule-Out 09/07/2024 09/06/2024 11:45 AM EDT documented as of this encounter Care Teams Aerial Erector Relationship Specialty Start Date End Date Juve Lockwood MD [address] [place] [id number] PCP - General Internal Medicine 04/21/24 documented as of this encounter
--- OUTSIDE RECORDS SUMMARY | 2025-01-20 14:04 | XMS_ITS | Encounter Summary ---
Author Organization [facility] Address [address] [place] [address] Care Team Providers Care Crucible Furnace Tender Name Role Phone Juve Lockwood MD Primary Care Provider [phone] Encounter Details Date Type Department Care Team (Late st Contact Info) Description 04/21/2024 Lab Requisition [facility] - Main Lab [address] [place] [address] Arias Morel MD [address] [place] [address] Other specified diabetes mellitus without complications (CMS/HCC V24, CMS/HCC [...] Associated Diagnosis Comments COMPLETE BLOOD COUNT Routine 04/22/2024 5:30 AM EST Other specified diabetes mellitus without complications (CMS/HCC) BASIC METABOLIC PANEL Routine 04/22/2024 5:30 AM EST Other specified diabetes mellitus without complications (CMS/HCC) documented in this encounter Results * (ABNORMAL) Basic metabolic panel (04/22/2024 5:30 AM EST) Sodium 139 133 - 145 mmol/L LAB CHEMISTRY METHOD 04/22/2024 10:23 AM EST [facility] Potassium 4.5 3.5 - 5.5 mmol/L LAB CHEMISTRY METHOD 04/22/2024 10:23 AM [facility] Chloride 108 96 - 110 mmol/L LAB CHEMISTRY METHOD 04/22/2024 10:23 AM [facility] CO2 25 21 - 32 mmol/L LAB CHEMISTRY METHOD 04/22/2024 10:23 AM [facility] Anion Gap 6 3 - 11 LAB CHEMISTRY METHOD 04/22/2024 10:23 AM [facility] Glucose 106(H) 70 - 100 mg/dL LAB CHEMISTRY METHOD 04/22/2024 10:23 AM [facility] BUN 10 5 - 25 mg/dL LAB CHEMISTRY METHOD 04/22/2024 10:23 AM [facility] Creatinine 0.68 0.50 - 1.10 mg/dL LAB CHEMISTRY METHOD 04/22/2024 10:23 AM [facility] eGFR 87 >=60 mL/min/1. 73m2 LAB CHEMISTRY METHOD 04/22/2024 10:23 AM [facility] Comment:Calculation based on the Chronic Kidney Disease Epidemiology Collaboration (CKD-EPI) equation refit without adjustment for race. BUN/Creatinine Ratio 14.7 LAB CHEMISTRY METHOD 04/22/2024 10:23 AM [facility] Calcium 8.6 8.5 - 10.5 mg/dL LAB CHEMISTRY METHOD 04/22/2024 10:23 AM [facility] Blood Venous blood specimen / Unknown Venipuncture / Unknown 04/22/2024 5:30 AM EST 04/22/2024 9:37 AM EST us Arias Morel MD LAB BLOOD ORDERABLES Final Resul t [facility] [address] [place] [address], * (ABNORMAL) Complete blood count (04/22/2024 5:30 AM EST) WBC 7.6 4.8 - 10.8 K/[facility] LAB HEMETOLOGY METHOD 04/22/2024 9:57 AM [facility] RBC 3.70(L) 3.80 - 4.80 M/[facility] LAB HEMETOLOGY METHOD 04/22/2024 9:57 AM [facility] Hemoglobin 10.8(L) 11.5 - 16.0 g/dL LAB HEMETOLOGY METHOD 04/22/2024 9:57 AM [facility] Hematocrit 34.2(L) 35.0 - 47.0 % LAB HEMETOLOGY METHOD 04/22/2024 9:57 AM [facility] MCV 91.7 79.0 - 98.0 FL LAB HEMETOLOGY METHOD 04/22/2024 9:57 AM [facility] MCH 29.0 27.0 - 32.0 pcg LAB HEMETOLOGY METHOD 04/22/2024 9:57 AM [facility] MCHC 31.6(L) 32.0 - 37.0 g/dL LAB HEMETOLOGY METHOD 04/22/2024 9:57 AM [facility] RDW 15.2(H) 11.0 - 15.0 % LAB HEMETOLOGY METHOD 04/22/2024 9:57 AM [facility] Platelets 230 130 - 400 K/[facility] LAB HEMETOLOGY METHOD 04/22/2024 9:57 AM [facility] MPV 8.8 7.0 - 11.0 FL LAB HEMETOLOGY METHOD 04/22/2024 9:57 AM [facility] NRBC 0.0 <1.0 % LAB HEMETOLOGY METHOD 04/22/2024 9:57 AM [facility] NRBC Absolute 0.00 <0.10 K/[facility] LAB HEMETOLOGY METHOD 04/22/2024 9:57 AM [facility] Blood Venous blood specimen / Unknown Venipuncture / Unknown 04/22/2024 5:30 AM EST 04/22/2024 9:37 AM EST us Arias Morel MD LAB BLOOD ORDERABLES Final Resul t [facility] [address] [place] [address], documented in this encounter Visit Diagnoses Diagnosis Other specified diabetes mellitus without complications (CMS/HCC V24, CMS/HCC V28) documented in this encounter Additional Health Concerns Infection Onset Date Last Indicated Resolved Time Respiratory Rule-Out 08/27/2024 08/26/2024 025 3:17 PM EDT C. difficile Rule-Out 09/07/2024 09/06/20242024 11:34 AM EDT Gastrointestinal Rule-Out 09/07/2024 09/06/2024 11:45 AM EDT documented as of this encounter Care Teams Crucible Furnace Tender Relationship Specialty Start Date End Date Juve Lockwood MD [address] [place] [id number] PCP - General Internal Medicine 04/21/24 documented as of this encounter
--- OUTSIDE RECORDS SUMMARY | 2025-01-20 14:04 | XMS_ITS | Encounter Summary ---
Author Organization [facility] Address [address] [place] [address] Care Team Providers Care Hardware Designer Name Role Phone Juve Lockwood MD Primary Care Provider [phone] Encounter Details Date Type Department Care Team (Late st Contact Info) Description 09/26/2024 Lab Requisition [facility] - Main Lab [address] [facility] [employer] [place] [address] Arias Morel MD [address] [place] [address] Type 2 diabetes mellitus without complications (CMS/HCC [...] Associated Diagnosis Comments COMPLETE BLOOD COUNT Routine 09/26/2024 6:05 AM EDT Type 2 diabetes mellitus without complications (CMS/HCC V24, CMS/HCC V28) BASIC METABOLIC PANEL Routine 09/26/2024 6:05 AM EDT Type 2 diabetes mellitus without complications (CMS/HCC V24, CMS/HCC V28) documented in this encounter Results * Basic metabolic panel (09/26/2024 6:05 AM EDT) Sodium 137 133 - 145 mmol/L LAB CHEMISTRY METHOD 09/26/2024 12:00 PM EDT [facility] ([facility]) [facility] Potassium 5.0 3.5 - 5.5 mmol/L LAB CHEMISTRY METHOD 09/26/2024 12:00 PM [facility] Chloride 105 96 - 110 mmol/L LAB CHEMISTRY METHOD 09/26/2024 12:00 PM [facility] CO2 24 21 - 32 mmol/L LAB CHEMISTRY METHOD 09/26/2024 12:00 PM [facility] Anion Gap 8 3 - 11 LAB CHEMISTRY METHOD 09/26/2024 12:00 PM [facility] Glucose 84 70 - 100 mg/dL LAB CHEMISTRY METHOD 09/26/2024 12:00 PM [facility] BUN 13 5 - 25 mg/dL LAB CHEMISTRY METHOD 09/26/2024 12:00 PM [facility] Creatinine 0.70 0.50 - 1.10 mg/dL LAB CHEMISTRY METHOD 09/26/2024 12:00 PM [facility] eGFR 86 >=60 mL/min/1. 73m2 LAB CHEMISTRY METHOD 09/26/2024 12:00 PM [facility] Comment:Calculation based on the Chronic Kidney Disease Epidemiology Collaboration (CKD-EPI) equation refit without adjustment for race. BUN/Creatinine Ratio 18.6 LAB CHEMISTRY METHOD 09/26/2024 12:00 PM [facility] Calcium 8.8 8.5 - 10.5 mg/dL LAB CHEMISTRY METHOD 09/26/2024 12:00 PM [facility] Blood Venous blood specimen / Unknown Venipuncture / Unknown 09/26/2024 6:05 AM EDT 09/26/2024 10:03 AM EDT us Arias Morel MD LAB BLOOD ORDERABLES Final Resul t [facility] [address] [place] [address], * (ABNORMAL) Complete blood count (09/26/2024 6:05 AM EDT) [facility] WBC 8.0 4.8 - 10.8 K/mcL LAB HEMETOLOGY METHOD 09/26/2024 11:22 AM [facility] RBC 3.50(L) 3.80 - 4.80 M/mcL LAB HEMETOLOGY METHOD 09/26/2024 11:22 AM [facility] Hemoglobin 10.2(L) 11.5 - 16.0 g/dL LAB HEMETOLOGY METHOD 09/26/2024 11:22 AM [facility] Hematocrit 33.0(L) 35.0 - 47.0 % LAB HEMETOLOGY METHOD 09/26/2024 11:22 AM [facility] MCV 93.5 79.0 - 98.0 FL LAB HEMETOLOGY METHOD 09/26/2024 11:22 AM [facility] MCH 28.9 27.0 - 32.0 pcg LAB HEMETOLOGY METHOD 09/26/2024 11:22 AM [facility] MCHC 30.9(L) 32.0 - 37.0 g/dL LAB HEMETOLOGY METHOD 09/26/2024 11:22 AM [facility] RDW 15.1(H) 11.0 - 15.0 % LAB HEMETOLOGY METHOD 09/26/2024 11:22 AM [facility] Platelets 271 130 - 400 K/mcL LAB HEMETOLOGY METHOD 09/26/2024 11:22 AM [facility] MPV 8.8 7.0 - 11.0 FL LAB HEMETOLOGY METHOD 09/26/2024 11:22 AM [facility] NRBC 0.0 <1.0 % LAB HEMETOLOGY METHOD 09/26/2024 11:22 AM [facility] NRBC Absolute 0.00 <0.10 K/mcL LAB HEMETOLOGY METHOD 09/26/2024 11:22 AM EDT [facility] Blood Venous blood specimen / Unknown Venipuncture / Unknown 09/26/2024 6:05 AM EDT 09/26/2024 10:03 AM EDT us Arias Morel MD LAB BLOOD ORDERABLES Final Resul t [facility] ([facility] [address] [place] [address], documented in this encounter Visit Diagnoses Diagnosis Type 2 diabetes mellitus without complications (CMS/HCC V24, CMS/HCC V28) documented in this encounter Care Teams Hardware Designer Relationship Specialty Start Date End Date Juve Lockwood MD [address] [place] [id number] PCP - General Internal Medicine 04/21/24 documented as of this encounter
--- OUTSIDE RECORDS SUMMARY | 2025-01-20 14:04 | XMS_ITS | Encounter Summary ---
Author Organization [facility] Address [address] [place] [address] Care Team Providers Care Department Of Sociology Chair Name Role Phone Juve Lockwood MD Primary Care Provider [phone] Encounter Details Date Type Department Care Team (Late st Contact Info) Description 08/27/2024 Lab Requisition [facility] - Main Lab [address] [place] [address] Arias Morel MD [address] [place] [address] Acute cough; Nasal congestion Social History Tobacco Use Types Packs/Day Years [...] Procedure Name Priority Date/Time Associated Diagnosis Comments [id number], RSV, FLU A AND B QUALITATIVE RT-PCR, LOCAL REFERENCE LAB Routine 08/26/2024 12:00 AM EDT Acute cough Nasal congestion documented in this encounter Results * [id number], RSV, Influenza A and B qualitative RT-PCR (08/26/2024 12:00 AM EDT) SARS COV-2 Not Detected Not Detected LAB MOLECULAR DIAGNOSTICS METHOD 08/27/2024 3:17 PM EDT [facility] ([facility]) [facility] Comment: Disclaimer: The manner in which this information is used to guide patient care is the responsibility of the healthcare provider. Testing was performed using the Imagimod m SARS-CoV-2 test. This test has been authorized by FDA under an Emergency Use Authorization (EUA). This test is only authorized for the duration of time the declaration that circumstances exist justifying the authorization of the emergency use of in vitro diagnostic tests for detection of SARS-CoV-2 virus and/or diagnosis of COVID-19 infection under section 564(b)(1) of the Act, 21 U.S.C. 360bbb- 3(b)(1), unless the authorization is terminated or revoked sooner. Fact sheet for Healthcare Providers can be found at: https://www.fda.gov/media/158825/download Fact sheet for Patients can be found at: https://www.fda.gov/media/569116/download Influenza A PCR Not Detected Not Detected LAB MOLECULAR DIAGNOSTICS METHOD 08/27/2024 3:17 PM EDT [facility] Influenza B PCR Not Detected Not Detected LAB MOLECULAR DIAGNOSTICS METHOD 08/27/2024 3:17 PM EDT [facility] RSV PCR Not Detected Not Detected LAB MOLECULAR DIAGNOSTICS METHOD 08/27/2024 3:17 PM EDT [facility] Swab Nasopharyngeal structure / Unknown Non-blood Collection / Unknown 08/26/2024 08/27/2024 12:15 PM EDT Arias Morel MD LAB MICROBIOLOGY - GENERAL ORDER JUSTUS Final Result [facility] [address] [place] [address], documented in this encounter Visit Diagnoses Diagnosis Acute cough Nasal congestion Other diseases of nasal cavity and sinuses documented in this encounter Additional Health Concerns Infection Onset Date Last Indicated Resolved Time Respiratory Rule-Out 08/27/2024 08/26/2024 025 3:17 PM EDT C. difficile Rule-Out 09/07/2024 09/06/20242024 11:34 AM EDT Gastrointestinal Rule-Out 09/07/2024 09/06/2024 11:45 AM EDT documented as of this encounter Care Teams Department Of Sociology Chair Relationship Specialty Start Date End Date Juve Lockwood MD [address] [place] [id number] PCP - General Internal Medicine 04/21/24 documented as of this encounter
--- OUTSIDE RECORDS SUMMARY | 2025-01-20 14:04 | XMS_ITS | Encounter Summary ---
Author Organization [facility] Address [address] [place] [address] Care Team Providers Care Electrical Wirer Name Role Phone Juve Lockwood MD Primary Care Provider [phone] Encounter Details Date Type Department Care Team (Late st Contact Info) Description 05/10/[address] [facility] - Main Lab 299 [facility] [place] [address] Arias Morel MD [address] [place], [place] [id number] Type 2 diabetes mellitus without complications (CMS/HCC V24, CMS/HCC V28); Other nursing home (current) drug therapy Social History Tobacco Use [...] Procedure Name Priority Date/Time Associated Diagnosis Comments LIPID PANEL WITH REFLEX TO DIRECT LDL Routine 05/11/2024 5:30 AM EST Type 2 diabetes mellitus without complications (CMS/HCC) Other keno terminal operator (current) drug therapy COMPLETE BLOOD COUNT Routine 05/11/2024 5:30 AM EST Type 2 diabetes mellitus without complications (CMS/HCC) Other keno terminal operator (current) drug therapy THYROID STIMULATING HORMONE Routine 05/11/2024 5:30 AM EST Type 2 diabetes mellitus without complications (CMS/HCC) Other keno terminal operator (current) drug therapy HEMOGLOBIN A1C Routine 05/11/2024 5:30 AM EST Type 2 diabetes mellitus without complications (CMS/HCC) Other keno terminal operator (current) drug therapy COMPREHENSIVE METABOLIC PANEL Routine 05/11/2024 5:30 AM EST Type 2 diabetes mellitus without complications (CMS/HCC) Other nursing home (current) drug therapy documented in this encounter Results * Thyroid stimulating hormone (05/11/2024 5:30 AM EST) Pathologist [facility] TSH 1.11 0.40 - 4.00 mcIU/mL LAB CHEMISTRY METHOD 05/11/2024 1:17 PM EST [facility] Blood Venous blood specimen / Unknown Venipuncture / Unknown 05/11/2024 5:30 AM EST 05/11/2024 11:10 AM EST us Arias Morel MD LAB BLOOD ORDERABLES Final Resul t Performing Organization Address City/[facility]/ZIP Co de Phone Number [facility] [address] [place] [address], [place] [phone] * Hemoglobin A1c (05/11/2024 5:30 AM EST) [facility] Hemoglobin A1C 6.1 <6.5 % LAB CHEMISTRY METHOD 05/11/2024 5:14 PM EST [facility] Mean Bld Glu Estim. 128 mg/dL LAB CHEMISTRY METHOD 05/11/2024 5:14 PM EST [facility] Blood Venous blood specimen / Unknown Venipuncture / Unknown 05/11/2024 5:30 AM EST 05/11/2024 11:10 AM EST us Arias Morel MD LAB BLOOD ORDERABLES Final Resul t Performing Organization Address City/[facility]/ZIP Co de Phone Number [facility] [address] [place] [address], [place] [phone] * (ABNORMAL) Lipid panel with reflex to direct LDL (05/11/2024 5:30 AM EST) Cholesterol 98 0 - 200 mg/dL LAB CHEMISTRY METHOD 05/11/2024 12:39 PM [facility] Triglycerides 188(H) 0 - 150 mg/dL LAB CHEMISTRY METHOD 05/11/2024 12:39 PM [facility] HDL 30(L) >=40 mg/dL LAB CHEMISTRY METHOD 05/11/2024 12:39 PM [facility] LDL Calculated 30 0 - 100 mg/dL LAB CHEMISTRY METHOD 05/11/2024 12:39 PM [facility] VLDL Cholesterol Omkar 37.6 mg/dL LAB CHEMISTRY METHOD 05/11/2024 12:39 PM [facility] Non HDL Chol. (LDL+VLDL) 68 <145 mg/dL LAB CHEMISTRY METHOD 05/11/2024 12:39 PM [facility] Chol/HDL Ratio 3.3 0.0 - 4.4 LAB CHEMISTRY METHOD 05/11/2024 12:39 PM [facility] Blood Venous blood specimen / Unknown Venipuncture / Unknown 05/11/2024 5:30 AM EST 05/11/2024 11:10 AM EST us Arias Morel MD LAB BLOOD ORDERABLES Final Resul t [facility] [address] [place] [address], * (ABNORMAL) Comprehensive metabolic panel (05/11/2024 5:30 AM EST) Pathologist [facility] Sodium 139 133 - 145 mmol/L LAB CHEMISTRY METHOD 05/11/2024 12:39 PM [facility] Potassium 4.4 3.5 - 5.5 mmol/L LAB CHEMISTRY METHOD 05/11/2024 12:39 PM [facility] Chloride 111(H) 96 - 110 mmol/L LAB CHEMISTRY METHOD 05/11/2024 12:39 PM [facility] CO2 20(L) 21 - 32 mmol/L LAB CHEMISTRY METHOD 05/11/2024 12:39 PM [facility] Anion Gap 8 3 - 11 LAB CHEMISTRY METHOD 05/11/2024 12:39 PM [facility] Glucose 94 70 - 100 mg/dL LAB CHEMISTRY METHOD 05/11/2024 12:39 PM [facility] BUN 9 5 - 25 mg/dL LAB CHEMISTRY METHOD 05/11/2024 12:39 PM [facility] Creatinine 0.70 0.50 - 1.10 mg/dL LAB CHEMISTRY METHOD 05/11/2024 12:39 PM [facility] eGFR 86 >=60 mL/min/1. 73m2 LAB CHEMISTRY METHOD 05/11/2024 12:39 PM [facility] Comment:Calculation based on the Chronic Kidney Disease Epidemiology Collaboration (CKD-EPI) equation refit without adjustment for race. BUN/Creatinine Ratio 12.9 LAB CHEMISTRY METHOD 05/11/2024 12:39 PM [facility] Calcium 8.7 8.5 - 10.5 mg/dL LAB CHEMISTRY METHOD 05/11/2024 12:39 PM [facility] AST (SGOT) 14 10 - 42 unit/L LAB CHEMISTRY METHOD 05/11/2024 12:39 PM [facility] ALT (SGPT) 9(L) 10 - 60 unit/L LAB CHEMISTRY METHOD 05/11/2024 12:39 PM [facility] Alkaline Phosphatase 87 42 - 121 unit/L LAB CHEMISTRY METHOD 05/11/2024 12:39 PM [facility] Total Protein 6.0 6.0 - 8.0 g/dL LAB CHEMISTRY METHOD 05/11/2024 12:39 PM [facility] Albumin 3.1(L) 3.2 - 5.0 g/dL LAB CHEMISTRY METHOD 05/11/2024 12:39 PM [facility] Total Bilirubin 0.3 0.0 - 1.4 mg/dL LAB CHEMISTRY METHOD 05/11/2024 12:39 PM [facility] Blood Venous blood specimen / Unknown Venipuncture / Unknown 05/11/2024 5:30 AM EST 05/11/2024 11:10 AM EST us Arias Morel MD LAB BLOOD ORDERABLES Final Resul t [facility] [address] [place] [address], * (ABNORMAL) Complete blood count (05/11/2024 5:30 AM EST) WBC 7.9 4.8 - 10.8 K/mcL LAB HEMETOLOGY METHOD 05/11/2024 11:37 AM [facility] RBC 3.60(L) 3.80 - 4.80 M/[facility] LAB HEMETOLOGY METHOD 05/11/2024 11:37 AM [facility] Hemoglobin 10.3(L) 11.5 - 16.0 g/dL LAB HEMETOLOGY METHOD 05/11/2024 11:37 AM [facility] Hematocrit 33.2(L) 35.0 - 47.0 % LAB HEMETOLOGY METHOD 05/11/2024 11:37 AM [facility] MCV 93.5 79.0 - 98.0 FL LAB HEMETOLOGY METHOD 05/11/2024 11:37 AM [facility] MCH 29.0 27.0 - 32.0 pcg LAB HEMETOLOGY METHOD 05/11/2024 11:37 AM [facility] MCHC 31.0(L) 32.0 - 37.0 g/dL LAB HEMETOLOGY METHOD 05/11/2024 11:37 AM [facility] RDW 14.7 11.0 - 15.0 % LAB HEMETOLOGY METHOD 05/11/2024 11:37 AM EST [facility] Platelets 302 130 - 400 K/mcL LAB HEMETOLOGY METHOD 05/11/2024 11:37 AM EST [facility] MPV 8.4 7.0 - 11.0 FL LAB HEMETOLOGY METHOD 05/11/2024 11:37 AM EST [facility] NRBC 0.0 <1.0 % LAB HEMETOLOGY METHOD 05/11/2024 11:37 AM EST [facility] NRBC Absolute 0.00 <0.10 K/mcL LAB HEMETOLOGY METHOD 05/11/2024 11:37 AM EST [facility] Blood Venous blood specimen / Unknown Venipuncture / Unknown 05/11/2024 5:30 AM EST 05/11/2024 11:10 AM EST us Arias Morel MD LAB BLOOD ORDERABLES Final Resul t [facility] [address] [place] [address], documented in this encounter Visit Diagnoses Diagnosis Type 2 diabetes mellitus without complications (CMS/HCC V24, CMS/HCC V28) Other nursing home (current) drug therapy documented in this encounter Additional Health Concerns Infection Onset Date Last Indicated Resolved Time Respiratory Rule-Out 08/27/2024 08/26/2024 025 3:17 PM EDT C. difficile Rule-Out 09/07/2024 09/06/20242024 11:34 AM EDT Gastrointestinal Rule-Out 09/07/2024 09/06/2024 11:45 AM EDT documented as of this encounter Care Teams Electrical Wirer Relationship Specialty Start Date End Date Juve Lockwood MD [address] [place] [id number] PCP - General Internal Medicine 04/21/24 documented as of this encounter
--- OUTSIDE RECORDS SUMMARY | 2025-01-20 14:04 | XMS_ITS | Encounter Summary ---
Author Organization [facility] Address [address] [place] [address] Care Team Providers Care Transfer Knitter Name Role Phone Juve Lockwood MD Primary Care Provider [phone] Encounter Details Date Type Department Care Team (Late st Contact Info) Description 03/03/2024 Lab Requisition [facility] - Main Lab [address] [facility] [place] [address] Juve Lockwood MD [address] [place] [phone] Shortness of breath; Coronavirus infection, unspecified; Unspecified atrial fibrillation (CMS/HCC V24, CMS/HCC V28) Social History Tobacco [...] Associated Diagnosis Comments COMPLETE BLOOD COUNT Routine 03/04/2024 4:58 AM EST Shortness of breath Coronavirus infection, unspecified Unspecified atrial fibrillation (CMS/HCC) URIC ACID Routine 03/04/2024 4:58 AM EST Shortness of breath Coronavirus infection, unspecified Unspecified atrial fibrillation (CMS/HCC) B-TYPE NATRIURETIC PEPTIDE Routine 03/04/2024 4:58 AM EST Shortness of breath Coronavirus infection, unspecified Unspecified atrial fibrillation (CMS/HCC) BASIC METABOLIC PANEL Routine 03/04/2024 4:58 AM EST Shortness of breath Coronavirus infection, unspecified Unspecified atrial fibrillation (CMS/HCC) documented in this encounter Results * Uric acid (03/04/2024 4:58 AM EST) [facility] Uric Acid 4.7 3.1 - 7.8 mg/dL LAB CHEMISTRY METHOD 03/04/2024 11:[address] [facility] Blood Venous blood specimen / Unknown Venipuncture / Unknown 03/04/2024 4:58 AM EST 03/04/2024 11:18 AM EST us Juve Lockwood MD LAB BLOOD ORDERABLES Final Res ult Performing Organization Address [facility]/ZIP Co de Phone Number [facility] [address] [place] [address], [place] [phone] * B-type natriuretic peptide (03/04/2024 4:58 AM EST) [facility] BNP 85 <=100 pcg/mL LAB CHEMISTRY METHOD 03/04/2024 11:[address] [facility] Blood Venous blood specimen / Unknown Venipuncture / Unknown 03/04/2024 4:58 AM EST 03/04/2024 11:20 AM EST us Juve Lockwood MD LAB BLOOD ORDERABLES Final Res ult [facility] [address] [place] [address], [place] [phone] * Basic metabolic panel (03/04/2024 4:58 AM EST) [facility] Sodium 139 133 - 145 mmol/L LAB CHEMISTRY METHOD 03/04/2024 11:[address] [facility] Potassium 5.1 3.5 - 5.5 mmol/L LAB CHEMISTRY METHOD 03/04/2024 11:[address] [facility] Comment:Hemolysis present Chloride 107 96 - 110 mmol/L LAB CHEMISTRY METHOD 03/04/2024 11:20 AM [facility] CO2 23 21 - 32 mmol/L LAB CHEMISTRY METHOD 03/04/2024 11:20 AM [facility] Anion Gap 9 3 - 11 LAB CHEMISTRY METHOD 03/04/2024 11:20 AM [facility] Glucose 97 70 - 100 mg/dL LAB CHEMISTRY METHOD 03/04/2024 11:20 AM [facility] BUN 11 5 - 25 mg/dL LAB CHEMISTRY METHOD 03/04/2024 11:20 AM [facility] Creatinine 0.70 0.50 - 1.10 mg/dL LAB CHEMISTRY METHOD 03/04/2024 11:20 AM [facility] eGFR 86 >=60 mL/min/1. 73m2 LAB CHEMISTRY METHOD 03/04/2024 11:20 AM [facility] Comment:Calculation based on the Chronic Kidney Disease Epidemiology Collaboration (CKD-EPI) equation refit without adjustment for race. BUN/Creatinine Ratio 15.7 LAB CHEMISTRY METHOD 03/04/2024 11:20 AM [facility] Calcium 8.8 8.5 - 10.5 mg/dL LAB CHEMISTRY METHOD 03/04/2024 11:20 AM [facility] Blood Venous blood specimen / Unknown Venipuncture / Unknown 03/04/2024 4:58 AM EST 03/04/2024 11:18 AM EST us Juve Lockwood MD LAB BLOOD ORDERABLES Final Res ult [facility] [address] [place] [address], * (ABNORMAL) Complete blood count (03/04/2024 4:58 AM EST) WBC 8.0 4.8 - 10.8 K/mcL LAB HEMETOLOGY METHOD 03/04/2024 11:31 AM [facility] RBC 3.70(L) 3.80 - 4.80 M/mcL LAB HEMETOLOGY METHOD 03/04/2024 11:31 AM [facility] Hemoglobin 10.8(L) 11.5 - 16.0 g/dL LAB HEMETOLOGY METHOD 03/04/2024 11:31 AM [facility] Hematocrit 34.2(L) 35.0 - 47.0 % LAB HEMETOLOGY METHOD 03/04/2024 11:31 AM [facility] MCV 91.4 79.0 - 98.0 FL LAB HEMETOLOGY METHOD 03/04/2024 11:31 AM [facility] MCH 28.9 27.0 - 32.0 pcg LAB HEMETOLOGY METHOD 03/04/2024 11:31 AM [facility] MCHC 31.6(L) 32.0 - 37.0 g/dL LAB HEMETOLOGY METHOD 03/04/2024 11:31 AM [facility] RDW 14.7 11.0 - 15.0 % LAB HEMETOLOGY METHOD 03/04/2024 11:31 AM [facility] Platelets 264 130 - 400 K/mcL LAB HEMETOLOGY METHOD 03/04/2024 11:31 AM [facility] MPV 8.6 7.0 - 11.0 FL LAB HEMETOLOGY METHOD 03/04/2024 11:31 AM [facility] NRBC 0.0 <1.0 % LAB HEMETOLOGY METHOD 03/04/2024 11:31 AM [facility] NRBC Absolute 0.00 <0.10 K/mcL LAB HEMETOLOGY METHOD 03/04/2024 11:31 AM [facility] Blood Venous blood specimen / Unknown Venipuncture / Unknown 03/04/2024 4:58 AM EST 03/04/2024 11:30 AM EST Juve Lockwood MD LAB BLOOD ORDERABLES Final Res ult [facility] [address] [place] [address], documented in this encounter Visit Diagnoses Diagnosis Shortness of breath Coronavirus infection, unspecified Unspecified atrial fibrillation (CMS/HCC V24, CMS/HCC V28) documented in this encounter Additional Health Concerns Infection Onset Date Last Indicated Resolved Time Respiratory Rule-Out 08/27/2024 08/26/2024 025 3:17 PM EDT C. difficile Rule-Out 09/07/2024 09/06/20242024 11:34 AM EDT Gastrointestinal Rule-Out 09/07/2024 09/06/2024 11:45 AM EDT documented as of this encounter Care Teams Transfer Knitter Relationship Specialty Start Date End Date Juve Lockwood MD [address] [place] [id number] PCP - General Internal Medicine 04/21/24 documented as of this encounter
--- OUTSIDE RECORDS SUMMARY | 2025-01-20 14:04 | XMS_ITS | Clinical Summary ---
Author Organization [address] [facility] Address [address] [place] [address] Phone Care Team Providers Care Farm Consultant Name Role Phone Juve Lockwood MD Primary Care Provider [phone] Social History Tobacco Use Types Packs/Day Years Used Date Smoking Tobacco: Never Assessed Comments Unknown Sex and Gender Information Value Date Recorded Sex Assigned at Not on file Legal Sex Female 8:07 AM EST Gender Identity Not on file Sexual Orientation Not on file Plan of Treatment Health Maintenance Due Date Last Done Comments DTaP,Tdap,and Td Vaccines (1 - Tdap) 1960 Pneumococcal Vaccine: 50+ Ye ars (1 of 2 - PCV) 1960 Zoster Vaccines (1 of 2) 1991 RSV Immunization Adult Patie nts (1 - 1-dose 75+ series) 2016 Falls Risk Assessment 03/02/2022 Osteoporosis Screening (Bone Density Screening) 03/02/2022 Social Influencers of Health Screening 03/02/2022 Depression Screening 03/30/2024 COVID-19 Vaccine ( - 2023-2 5 season) 2024 Influenza Vaccine (#1) 2024 Cholesterol Screening (Lipid Panel) 05/11/2029 05/11/2024 HIB Vaccines Aged Out No longer eligi ble based on patient's age to complete this topic HPV Vaccines Aged Out No longer eligi ble based on patient's age to complete this topic Hepatitis A Vaccines Aged Out No long er eligible based on patient's age to complete this topic Hepatitis B Vaccines Aged Out No long er eligible based on patient's age to complete this topic IPV Vaccines Aged Out No longer eligi ble based on patient's age to complete this topic MMR Vaccines Aged Out No longer eligi ble based on patient's age to complete this topic Meningococcal ACWY Vaccine Aged Out N o longer eligible based on patient's age to complete this topic Meningococcal B Vaccine Aged Out No l onger eligible based on patient's age to complete this topic RSV Immunization Patients Un sherly 20 months Aged Out No longer eligible b ased on patient's age to complete this topic Varicella Vaccines Aged Out No longer eligible based on patient's age to complete this topic Procedures Procedure Name Priority Date/Time Associated Diagnosis Comments LIPID PANEL WITH REFLEX TO DIRECT LDL Routine 05/11/2024 5:30 AM EST Type 2 diabetes mellitus without complications (CMS/HCC) Other termite control service representative (current) drug therapy from Last 3 Months or Most Recently Relevant to Health Maintenance Results * (ABNORMAL) Lipid panel with reflex to direct LDL (05/11/2024 5:30 AM EST) Cholesterol 98 0 - 200 mg/dL LAB CHEMISTRY METHOD 05/11/2024 12:39 PM [facility] Triglycerides 188(H) 0 - 150 mg/dL LAB CHEMISTRY METHOD 05/11/2024 12:39 PM [facility] HDL 30(L) >=40 mg/dL LAB CHEMISTRY METHOD 05/11/2024 12:39 PM [facility] LDL Calculated 30 0 - 100 mg/dL LAB CHEMISTRY METHOD 05/11/2024 12:39 PM [facility] VLDL Cholesterol Omkar 37.6 mg/dL LAB CHEMISTRY METHOD 05/11/2024 12:39 PM [facility] Non HDL Chol. (LDL+VLDL) 68 <145 mg/dL LAB CHEMISTRY METHOD 05/11/2024 12:39 PM [facility] Chol/HDL Ratio 3.3 0.0 - 4.4 LAB CHEMISTRY METHOD 05/11/2024 12:39 PM [facility] Blood Venous blood specimen / Unknown Venipuncture / Unknown 05/11/2024 5:30 AM EST 05/11/2024 11:10 AM EST Arias Morel MD LAB BLOOD ORDERABLES Final Resul t [facility] [address] [place] [address], from Last 3 Months or Most Recently Relevant to Health Maintenance Insurance [facility] Care Teams Farm Consultant Relationship Specialty Start Date End Date Juve Lockwood MD [address] [place] [id number] PCP - General Internal Medicine 04/21/24
--- OUTSIDE RECORDS SUMMARY | 2025-01-20 14:04 | XMS_ITS | Encounter Summary ---
Author Organization [facility] Address [address] [place] [address] Care Team Providers Care Scientific Linguist Name Role Phone Juve Lockwood MD Primary Care Provider [phone] Encounter Details Date Type Department Care Team (Late st Contact Info) Description 09/07/2024 Lab Requisition [facility] - Main Lab [address] [facility] [place] [address] Arias Morel MD [address] [place] [address] Altered mental status, unspecified Social History Tobacco Use Types Packs/Day Years [...] Procedure Name Priority Date/Time Associated Diagnosis Comments GASTROINTESTINAL PATHOGENS BY PCR Routine 09/06/2024 2:00 PM EDT Altered mental status, unspecified CLOSTRIDIUM DIFFICILE TOXIN Routine 09/06/2024 2:00 PM EDT Altered mental status, unspecified documented in this encounter Results * Gastrointestinal pathogens molecular study (09/06/2024 2:00 PM EDT) Campylobacter Detection by PCR Not Detected Not Detected LAB MICROBIOLOGY METHOD 5 11:45 AM EDT [facility] Plesiomonas shigelloides Detection by PCR Not Detected Not Detected LAB MICROBIOLOGY METHOD 5 11:45 AM EDT [facility] Salmonella Detection by PCR Not Detected Not Detected LAB MICROBIOLOGY METHOD 5 11:45 AM EDT [facility] Vibrio Detection by PCR Not Detected Not Detected LAB MICROBIOLOGY METHOD 5 11:45 AM EDT [facility] Vibrio cholerae Detection by PCR Not Detected Not Detected LAB [facility]Y [facility] 5 11:[facility] Yersinia enterocolitica Detection by PCR Not Detected Not Detected LAB MICROBIOLOGY METHOD 5 11:45 AM EDT [facility] Enteroaggregative E coli EAEC Detection by PCR Not Detected Not Detected [facility]Y [facility] 5 11:[facility] Enteropathogenic E coli EPEC Detection Not Detected Not Detected LAB MICROBIOLOGY METHOD 5 11:45 AM [facility] Enterotoxigenic E coli ETEC LTST Detection Not Detected Not Detected LAB [facility]OLOGY [facility] 5 11:[facility] Shiga-like toxin producing E coli STEC STX1 STX2 Det Not Detected Not Detected LAB MICROBIOLOGY [facility] 5 11:[facility] Shigella Enteroinvasive E coli EIEC Detection Not Detected Not Detected LAB MICROBIOLOGY METHOD 5 11:45 AM [facility] Cryptosporidium Detection by PCR Not Detected Not Detected LAB [facility]CROBIOLOGY [facility] 5 11:[facility] Cyclospora cayetanensis Detection by PCR Not Detected Not Detected LAB MICROBIOLOGY METHOD 5 11:[facility] Entamoeba histolytica Detection by PCR Not Detected Not Detected LAB MICROBIOLOGY METHOD 5 11:45 [facility] Giardia lamblia Detection by PCR Not Detected Not Detected LAB MICROBIOLOGY METHOD 5 11:[facility] Adenovirus F 40 41 Detection by PCR Not Detected Not Detected LAB MICROBIOLOGY METHOD 5 11:45 AM EDT [facility] Astrovirus Detection by PCR Not Detected Not Detected LAB MICROBIOLOGY METHOD 11:45 AM EDT [facility] Norovirus GI GII Detection by PCR Not Detected LAB MICROBIOLOGY METHOD 5 11:45 AM EDT [facility] Sapovirus Detection by PCR Not Detected Not Detected LAB MICROBIOLOGY METHOD 5 11:45 AM EDT [facility] Rotavirus A Detection by PCR Not Detected Not Detected LAB MICROBIOLOGY METHOD 11:45 AM EDT [facility] Stool Rectum structure / Unknown Non-blood Collection / Unknown 09/06/2024 2:00 PM EDT 09/07/2024 9:19 AM EDT [facility] - 09/07/2024 11:45 AM EDT PCR testing is much more sensitive than traditional techniques and allows for the detection of low numbers of stool pathogens. The clinical correlation of PCR results with the need for treatment and clinical outcomes has not been established. Therefore the results of PCR testing for stool pathogens must be taken into clinical context when making treatment decisions. This is a diagnostic test only, repeat testing for cure is not advised. You may consider infectious disease consult for additional guidance. Testing Performed by [facility] Arias Morel MD LAB MICROBIOLOGY - GENERAL ORDER JUSTUS Final Result [facility] [address] [place] [address], * Clostridium difficile toxin (09/06/2024 2:00 PM EDT) Clostridium difficile GDH Antigen Negative Negative 09/07/2024 11:34 AM EDT [facility] C difficile Toxins A+B, EIA Negative Negative 09/07/2024 11:34 AM EDT [facility] Comment:NEGATIVE FOR TOXIN P RODUCING CLOSTRIDIOIDES DIFFICILE, NO ADDITIONAL TESTING IS NECESSARY. Stool Rectum structure / Unknown Non-blood Collection / Unknown 09/06/2024 2:00 PM EDT 09/07/2024 9:19 AM EDT us Arias Morel MD LAB MICROBIOLOGY - GENERAL ORDER JUSTUS Final Result [facility] [address] [place] [address], documented in this encounter Visit Diagnoses Diagnosis Altered mental status, unspecified documented in this encounter Additional Health Concerns Infection Onset Date Last Indicated Resolved Time C. difficile Rule-Out 09/07/2024 09/06/20242024 11:34 AM EDT Gastrointestinal Rule-Out 09/07/2024 09/06/2024 11:45 AM EDT documented as of this encounter Care Teams Scientific Linguist Relationship Specialty Start Date End Date Juve Lockwood MD [address] [place] [id number] PCP - General Internal Medicine 04/21/24 documented as of this encounter
== END 2025-01-20 18:01 | disposition home or self-care (01) ==
PROVIDERS: Emergency Provider Emergency Medicine
DX: R07.89 Other chest pain (principal); N39.0 Urinary tract infection, site not specified; J90 Pleural effusion, not elsewhere classified; R10.10 Upper abdominal pain, unspecified; R06.02 Shortness of breath; R11.0 Nausea; R10.13 Epigastric pain; Z79.899 Other long term (current) drug therapy
CPT/HCPCS: 36415; 71045; 74177; 80048; 80076; 81001; 81003; 83690; 83735; 83880; 84484; 85025; 87086; 87088; 87186; 93005; 96365; 96375; 99285; J0131; J2405; Q9967

== ENCOUNTER → 2025-01-20 10:21 | Outpatient (BNV) | payer MEDICARE, MEDICAID, SELFPAY | PROVIDERS: Emergency Provider Emergency Medicine; Visit Provider Internal Medicine Cardiovascular Disease | DX: I44.0 Atrioventricular block, first degree (principal); I25.2 Old myocardial infarction | CPT/HCPCS: 93010 ==

== ENCOUNTER → 2025-01-20 10:40 | Outpatient (BNV) | payer MEDICARE, MEDICAID, SELFPAY | PROVIDERS: Emergency Provider Emergency Medicine; PCP Emergency Medicine; Visit Provider Radiology Diagnostic Radiology | DX: K57.30 Diverticulosis of large intestine without perforation or abscess without bleeding (principal); I70.0 Atherosclerosis of aorta; J84.9 Interstitial pulmonary disease, unspecified; J81.1 Chronic pulmonary edema | CPT/HCPCS: 71045; 74177 ==